=== PATIENT | female | born 1950 | race Caucasian/White ===

== ENCOUNTER 2018-08-12 13:18 | Outpatient (REF) | payer MEDICARE, SELFPAY ==
[2018-08-12 21:33] LABS: Bilirubin Negative (Negative); Blood Small (Negative); Clarity Clear; Glucose Negative (Negative); Ketones Negative (Negative); Leukocyte Esterase Negative (Negative); Nitrite Negative (Negative); Urobilinogen 0.2 EU/dL (Up TO 0.2); pH 6.5 (5-8)
[2018-08-12 21:43] LABS: Bacteria Few HPF (Negative); C & S Indicated? C&S Done As Ordered; Casts Negative LPF (Negative); Crystals Negative HPF (Negative); Epithelial Cells Negative HPF (Negative); Mucus Trace (Negative); Other Cells Negative (Negative); RBC 0-2 (0-2); WBC Negative HPF (0-5)
== END 2018-08-12 13:38 ==
LOC: NCHCN 13:18
PROVIDERS: Visit Provider Nurse Practitioner Family
DX: R31.9 Hematuria, unspecified (principal)
CPT/HCPCS: 81003; 81015; 87086

== ENCOUNTER 2018-08-26 11:43 | Outpatient (REF) | payer MEDICARE, SELFPAY ==
[2018-08-26 13:44] LABS: T4 10.1 ug/dL (4.5-12.5); TSH 3.77 uIU/mL (0.358-3.74)
== END 2018-08-26 12:03 ==
LOC: NCHCN 11:43
PROVIDERS: Visit Provider Nurse Practitioner Family
DX: E03.9 Hypothyroidism, unspecified (principal); R31.9 Hematuria, unspecified
CPT/HCPCS: 84436; 84443; 87086

== ENCOUNTER 2018-08-29 17:28 | Outpatient (REF) | payer MEDICARE, SELFPAY | END 2018-08-29 17:48 | LOC: NCHCN 17:28 | PROVIDERS: Visit Provider Nurse Practitioner Family | DX: R31.9 Hematuria, unspecified (principal) | CPT/HCPCS: 87086 ==

== ENCOUNTER 2020-12-01 13:35 | Outpatient (REF) | payer MEDICARE, SELFPAY ==
[2020-12-01 21:10] LABS: TSH (W/Ref FT4) 2.03 uIU/mL (0.36-3.74)
== END 2020-12-01 13:36 | disposition home or self-care (01) ==
LOC: NCHCN 13:35
PROVIDERS: Visit Provider Nurse Practitioner Family
DX: E03.9 Hypothyroidism, unspecified (principal)
CPT/HCPCS: 84443

== ENCOUNTER 2020-12-21 15:10 | Outpatient (REF) | payer MEDICARE, SELFPAY ==
[2020-12-21 21:39] LABS: ALT 26 U/L (14-59); AST 16 U/L (15-37); Anion Gap 8.7 mmol/L (3-11); BUN 15 mg/dL (7-18); CO2 27.3 mmol/L (21.0-32.0); CREATININE 0.9 mg/dL (0.55-1.02); Calcium 9.4 mg/dL (8.5-10.1); Calculated LDL 192 mg/dL (<100); Chloride 105 mmol/L (98-107); Cholesterol 274 mg/dL (<200); Glucose 93 mg/dL (74-106); HDL Cholesterol 64 mg/dL (40-60); Potassium 4.2 mmol/L (3.5-5.1); Sodium 141 mmol/L (136-145); Triglyceride 91 mg/dL (<150)
== END 2020-12-21 15:11 | disposition home or self-care (01) ==
LOC: NCHCN 15:10
PROVIDERS: Visit Provider Nurse Practitioner Family
DX: E78.5 Hyperlipidemia, unspecified (principal); R31.9 Hematuria, unspecified; E03.9 Hypothyroidism, unspecified; E05.00 Thyrotoxicosis with diffuse goiter without thyrotoxic crisis or storm
CPT/HCPCS: 80048; 80061; 84450; 84460

== ENCOUNTER → 2021-11-24 12:51 | Outpatient (CLI) | payer MEDICARE, OTHER, SELFPAY ==
--- NOTE | 2021-11-24 | DI.RAD_ITS ---
Exam(s) XR WRIST RT COMPLETE EXAM: XR WRIST RT COMPLETE CLINICAL HISTORY: RIGHT WRIST PAIN - M25.531. TECHNIQUE: 2D digital imaging was performed. COMPARISON: No exams were available for comparison FINDINGS: 3 views There is no evidence of fracture or carpal dislocation nor significant ulnar variance. No scaphoid f racture seen. Scapholunate distance is normal. There is incidentally noted some degenerative narrow ing of the articulation between the distal aspect scaphoid and the trapezium-trapezoid bones. IMPRESSION: No fracture evident DATA REPOSITORY: RADIATION DOSE DELIVERED:
== END ==
PROVIDERS: PCP Nurse Practitioner Family; Visit Provider Nurse Practitioner Family
DX: M25.531 Pain in right wrist (principal)
CPT/HCPCS: 73110

== ENCOUNTER 2021-11-24 21:03 | Outpatient (REF) | payer MEDICARE, SELFPAY ==
[2021-11-24 16:13] LABS: HCT 41.4 % (36.0-46.0); HGB 13.6 g/dL (11.2-15.7); MCH 28.9 pg (27.0-33.0); MCHC 32.9 % (32.0-36.0); MCV 88 fL (80-95); MPV 8.8 fL (8.0-11.0); Platelet Count 266 10^3/uL (130-400); RDW 13.1 % (11.7-14.6); RDW-SD 42.4 fL; WBC 6.41 10^3/uL (4.4-10.8)
[2021-11-24 16:36] LABS: Anion Gap 9.3 mmol/L (3-11); BUN 14 mg/dL (7-18); CO2 25.7 mmol/L (21.0-32.0); CREATININE 0.7 mg/dL (0.55-1.02); Calcium 9.1 mg/dL (8.5-10.1); Calculated LDL 193 mg/dL (<100); Chloride 106 mmol/L (98-107); Cholesterol 288 mg/dL (<200); Glucose 115 mg/dL (74-106); HDL Cholesterol 69 mg/dL (40-60); Potassium 4.1 mmol/L (3.5-5.1); Sodium 141 mmol/L (136-145); TSH (W/Ref FT4) 1.19 uIU/mL (0.36-3.74); Triglyceride 133 mg/dL (<150)
== END 2021-11-24 21:04 | disposition home or self-care (01) ==
LOC: NCHCN 21:03
PROVIDERS: Visit Provider Nurse Practitioner Family
DX: E03.9 Hypothyroidism, unspecified (principal); E78.5 Hyperlipidemia, unspecified
CPT/HCPCS: 80048; 80061; 85027; 83874; 84443

== ENCOUNTER 2021-12-11 07:20 | Day surgery (SDC) | payer MEDICARE, OTHER, SELFPAY ==
[2021-12-11 07:47] VITALS: BP 130/59; PULSE 66; RESP 17; TEMP 36.5; O2SAT 98
[2021-12-11] MEDS: Tropicam./Phenyleph. (1/2.5%) 5 ML BTL OD ×3 (07:51→08:03)
--- NOTE | 2021-12-11 08:11 | W.ANESPRE ---
General Info Date of Service Date Performed: 12/11/21 Height: 5 ft 8 in Weight: 78.7 kg Body Mass Index (BMI): 26.4 Surgical Procedure: Operation Date: 12/11/21 09:10 Proposed Procedure Side Surgeon p Cataract Extraction with IOL Implant Right Cristhian Lewis MD Meds Allergies and Home Medications Allergies Allergy/AdvReac Type Severity Reaction Status Date / Time ciprofloxacin Allergy Intermediate Headache Verified 12/11/21 07:46 Home Medication Medication Instructions Recorded levothyroxine 100 mcg tablet 100 mcg PO DAILY #1 tab-cap 12/25/13 (Synthroid) Current Visit Medications: Current Medications Generic Name Dose Route Start Last Admin Trade Name Freq PRN Reason Stop Dose Admin Acetaminophen 1,000 mg 12/11/21 06:00 Acetaminophen 500 Mg Tab PO Q4H PRN PRN Miscellaneous Medication 0 ml 12/11/21 06:00 Prednisolone 1%, Moxifloxacin 0.5%, Nepafenac 0.1% 5ml Btl OD DIRECTED ABHIJIT Miscellaneous Medication 0 ml 12/11/21 06:00 12/11/21 08:03 Tropicam./Phenyleph. (1/2.5%) 5 Ml Btl OD 1 drp DIRECTED ABHIJIT Administration Tetracaine HCl 0 ml 12/11/21 06:00 Tetracaine 0.5% 4 Ml Btl OD DIRECTED ABHIJIT PFSH Active Problems Active Problems: Problem Status Onset Code Nuclear sclerotic cataract of right eye H25.11 Hypothyroidism E03.9 Graves disease E05.00 Hyperlipidemia E78.5 Medical History Medical History Herniated disc s/p surgery L5-S1 Hx of retinal hemorrhage (L) [place] [facility] [place] Low back pain potentially associated with radiculopathy Thyroid cyst Surgical History Surgical History Hx of appendectomy Hx of hysterectomy Tobacco Smoking/Tobacco Use Status: Former Tobacco Use Alcohol Alcohol Intake: current Alcohol intake frequency: a few times a week Alcohol type: wine Substance Use Substance use: Never Substance use type: does not use Vital Signs and Lab Results Vital Signs Most Recent Vital Signs in EMR: Most Recent Vital Signs Temp Pulse Resp BP Pulse Ox 36.5 C 66 17 130/59 L 98 05/23/22 07:47 12/11/21 07:47 12/11/21 07:47 12/11/21 07:47 12/11/21 07:47 Lab Results Blood Type / Crossmatch: No Data to Display Complete Blood Count: White Blood Count 6.41 10^3/uL (4.4-10.8) 11/24/21 11:00 Red Blood Count 4.70 10^6/uL (3.93-5.22) 11/24/21 11:00 Hemoglobin 13.6 g/dL (11.2-15.7) 11/24/21 11:00 Hematocrit 41.4 % (36.0-46.0) 11/24/21 11:00 Platelet Count 266 10^3/uL (130-400) 11/24/21 11:00 Complete Metabolic Panel: Sodium Level 141 mmol/L (136-145) 11/24/21 11:00 Potassium Level 4.1 mmol/L (3.5-5.1) 11/24/21 11:00 Chloride Level 106 mmol/L (98-107) 11/24/21 11:00 Carbon Dioxide Level 25.7 mmol/L (21.0-32.0) 11/24/21 11:00 Blood Urea Nitrogen 14 mg/dL (7-18) 11/24/21 11:00 Creatinine 0.7 mg/dL (0.55-1.02) 11/24/21 11:00 Estimated GFR/1.73 m2 >= 60.00 (mL/min/1.73m2) 11/24/21 11:00 Calcium Level 9.1 mg/dL (8.5-10.1) 11/24/21 11:00 Glucose Level 115 mg/dL (74-106) H 11/24/21 11:00 Liver Function Panel: No Data to Display Coagulation Panel: No Data to Display Cardiac Panel: No Data to Display Arterial Blood Gas: No Data to Display Venous Blood Gas: No Data to Display Pancreas Panel: No Data to Display Thyroid Panel: Thyroid Stimulating Hormone (TSH) 1.19 uIU/mL (0.36-3.74) 11/24/21 11:00 Infectious Disease: No Data to Display Blood Cultures: No Data to Display Toxicology Panel: No Data to Display Anesthesia Assessment and Plan Anesthesia History Personal History: No History of Anesthesia Complications Family History: No Family History of Anesthesia Complications Exercise Tolerance Exercise Tolerance: Metabolic Equivalents>4 Pertinent Negatives Pertinent Negatives: No Symptoms of GERD, No Major Cardiovascular Symptoms or Complaints and No Major Pulmonary Symptoms or Complaints Cardiac & Pulmonary Exam Cardiac Exam: Normal S1/S2 Heart Sounds Pulmonary Exam: Clear Bilateral Breath Sounds Implantable Cardiac Device Does patient have a Pacemaker or an ICD?: No Airway Exam Known Difficult Airway: No Mallampati Class: 2 Mouth Opening: Normal (> 3cm) Thyromental Distance: Greater than 3 cm Neck Range of Motion: Full ROM Neck Circumference: Normal Teeth Condition: Normal Dentition ASA Classification ASA Score: ASA 2 Emergency Case?: No NPO Status NPO Status: NPO Clears >2 hours, Solids >8 hours Anesthesia Plan Resuscitation Status: Full Code Anesthesia Technique: MAC Anesthesia Airway Planned: Natural Airway Monitors Used: Standard Monitors
[2021-12-11 08:19] VITALS: BMI 26.4
[2021-12-11] MEDS: Tetracaine 0.5% 4 ML BTL OD (09:42)
[2021-12-11] MEDS: Balanced Salt Soln.-PLUS 500 ML BAG (09:43)
[2021-12-11] MEDS: Duovisc Viscoelastic System EACH 1 EACH (09:44)
[2021-12-11] MEDS: Lidocaine 2% Jelly 6 ML SYR (09:47)
[2021-12-11] MEDS: Povidone-Iodine Ophth 30 ML BTL (09:51)
--- NOTE | 2021-12-11 09:56 | W.PM.DSUDISC ---
Discharge Plan Disposition Patient Disposition: HOME Condition: Good Discharge Details Attending Provider: Cristhian Lewis Primary Care Provider: Soni Alva Home Meds and New Rx's Prescriptions: No Action levothyroxine [Synthroid] 100 MCG tablet 100 mcg PO DAILY Qty: 1 Discharge Instructions Stand Alone Forms: Post-op Topical Cataract, Loretta Bragg (DSU) Discharge Orders Discharge Orders: Discharge Order (Routine); Ordered 12/11/21 Ordered By: Cristhian Lewis DS: Diagnosis Discharge Diagnosis (1) Nuclear sclerotic cataract of right eye: Status: Resolved
--- NOTE | 2021-12-11 09:57 | ROE_ITS ---
Date of service: 12/11/21 Time of Service: 08:57 Operative Note Operative Note DATE OF PROCEDURE: 12/11/21 PRE-OP DIAGNOSIS: Nuclear cataract, right eye POST-OP DIAGNOSIS: same PROCEDURE: Cataract extraction using phacoemulsification with intraocular lens implant, right eye SURGEON: Cristhian Lewis ANESTHESIA TYPE: Local By Surgeon and MAC Refer to Anesthesia Record ESTIMATED BLOOD LOSS: 0 PATHOLOGY: none sent COMPLICATIONS: None Patient was transported to: same day Patient's condition: stable Implants: William & William/SERGIO Tecnis [id number] Indications: Progressive visual loss due to cataract, right eye Procedure Description: CATARACT SURGERY OPERATIVE REPORT PREOPERATIVE DIAGNOSIS: 1. Nuclear cataract, right eye POSTOPERATIVE DIAGNOSIS: Same OPERATION: 1. Cataract extraction using phacoemulsification with posterior chamber intraocular lens implant, right eye. IOL: IOL Supervisor Screen Printing/Model: William & William / SERGIO Tecnis [id number] IOL Power: + 19.5 diopters IOL Serial Number: [id number] Optic Diameter: 6.0mm Haptic/Overall Diameter: 13.0mm PHACO INFO: [employer] Vision System with OZil and Active Fluidics Cumulative Dispersed Energy (CDE): 27.15 seconds SURGEON: Cristhian Lewis MD, JOHNSON ANESTHESIA: Monitored Anesthesia Care (MAC), with local sub-tenon's anesthetic infiltration COMPLICATIONS: None SPECIMENS: None INDICATIONS FOR PROCEDURE: The patient is a 71-year-old lady with history of diminished visual acuity in her right eye secondary to the development of nuclear cataract. The option of cataract surgery was offered to the patient and she felt she was symptomatic enough that she wished to proceed. PROCEDURE: The correct surgical eye was identified and marked as the right eye and the pupil was dilated in the preoperative area using mydriatics and cycloplegics. The dilated pupil size was 7.0 mm. Oral sedation was administered in the form of an Imprimis MKO Melt (midazolam 3mg/ketamine 25mg/ondansetron 2mg). The patient was brought to the operating room where cardiopulmonary mo nitoring was instituted and surgical time-out was performed, confirming the correct operative eye and IOL power. Topical anesthesia was administered and ophthalmic povidone-iodine 5% was instilled into the conjunctival fornices. Lidocaine gel was applied to the cornea and the bonnie-ocular area was prepped with Betadine 10% solution and draped in the usual sterile fashion for intraocular surgery, including an aperture drape. A Tegaderm transparent film dressing was cut in half and used to cover the lashes and lid margins. Care was taken to sequester the lashes and lid margins under the Tegaderm dressing. A lid speculum was placed between the lids of the operative eye and the Sunny Lux[employer] Revalia operating microscope was maneuvered into position. Shannon scissors were then used to make a conjunctival buttonhole approximately 6mm posterior to the limbus in the inferonasal quadrant. Blunt dissection was carried out to expose bare sclera, and a blunt-tipped sub-tenon?s anesthesia can nula was introduced and passed posteriorly along the globe where non-preserved plain lidocaine was injected into posterior sub-Tenon?s space. A sideport knife was used to make a paracentesis port inferotemporally. Intraocular phenylephrine/lidocaine was injected into the anterior chamber. The anterior chamber was filled with viscoelastic. A 2.4mm keratome knife was used to construct a 2-plane near-clear corneal tunnel extending 2.0mm into clear cornea superiortemporally. A flap was raised on the anterior capsule and capsulorhexis forceps were used to complete a continuous curvilinear capsulorhexis of 5.5 mm. Balanced salt solution was then used to perform cortical cleaving hydrodissection and nuclear hydrodelineation until the lens could be freely rotated within the capsular bag. The lens nucleus was then disassembled and removed within the capsular bag and iris plane using phacoemulsification. Residual cortical material was removed using the I/A handpiece. The posterior capsule was carefully polished to remove as much residual lens epithelial cells as safely possible. The capsular bag was then inflated and the anterior chamber deepened with viscoelastic. The lens implant described above was inserted into the capsular bag using the SERGIO [place] Injector. A Kuglen hook was used to dial the IOL into position. Residual viscoelastic was then removed first from posterior to the IOL, then from the anterior chamber using the I/A handpiece. The lens implant was noted to center nicely within the capsular bag. The incisions were stromally hydrated, and the anterior chamber was reformed using BSS. Then 0.5cc of moxifloxacin 1.0mg/ml were injected into the capsular bag and anterior chamber. The incisions were checked with a Weck spear and found to be secure. Several drops of ophthalmic povidone-iodine 5% were then applied to the eye followed by two drops of Imprimis combination prednisolone/moxifloxacin/nepafenac solution. The drapes were removed and a clear plastic protective eye shield was placed over the eye. The patient was then returned to Same Day Surgery in stable condition.
[2021-12-11 10:00] VITALS: BP 144/89; PULSE 70; RESP 18; TEMP 36.1; O2SAT 97
--- NOTE | 2021-12-11 10:19 | W.ANESPOSTOP ---
Postoperative Evaluation Date, Time and Location Date Performed: 12/11/21 Time Performed: 10:05 Patient Location: Day Surgery Unit Vital Signs Most Recent Imported Vital Signs: Most Recent Vital Signs Temp Pulse Resp BP Pulse Ox 36.1 C L 70 18 144/89 H 97 12/11/21 10:00 12/11/21 10:00 12/11/21 10:00 12/11/21 10:00 12/11/21 10:00 Pain Score Most Recent Pain Score: Most Recent Pain Score Pain Level 0 12/11/21 10:00 Assessment Mental Status: Awake (Alert & Oriented to Patient Baseline) Airway and Respiratory Function: Patent airway with normal (patient baseline) respiratory exam Cardiovascular Function: Hemodynamically Stable Hydration Status: Adequately Hydrated Nausea & Vomiting: No Nausea or Vomiting Pain: Pt. Denies Any Pain Peripheral Nerve Block: Patient did not receive a nerve block
[2021-12-11 10:20] VITALS: BP 132/75; PULSE 78; RESP 18; TEMP 36.2; O2SAT 96
== END 2021-12-11 10:25 | disposition home or self-care (01) ==
PROVIDERS: PCP Nurse Practitioner Family; Visit Provider Ophthalmology
PROC: (CPT 66984; principal; 2021-12-11 09:00)
DX: H25.11 Age-related nuclear cataract, right eye (principal); E78.5 Hyperlipidemia, unspecified
CPT/HCPCS: 66984; V2632

== ENCOUNTER 2021-12-25 06:20 | Day surgery (SDC) | payer MEDICARE, OTHER, SELFPAY ==
[2021-12-25] MEDS: Tropicam./Phenyleph. (1/2.5%) 5 ML BTL OS ×3 (06:41→06:59)
[2021-12-25 06:43] VITALS: BP 134/65; PULSE 71; RESP 16; TEMP 36.5; O2SAT 96
--- NOTE | 2021-12-25 06:56 | ANES.PREOP_ITS ---
General Info Date of Service Date Performed: 12/25/21 Height: 5 ft 8 in Weight: 79.2 kg Body Mass Index (BMI): 26.5 Surgical Procedure: Operation Date: 12/25/21 07:40 Proposed Procedure Side Surgeon p Cataract Extraction with IOL Implant Left Cristhian Lewis MD Meds Allergies and Home Medications Allergies Allergy/AdvReac Type Severity Reaction Status Date / Time ciprofloxacin Allergy Intermediate Headache Verified 12/25/21 06:40 Home Medication Medication Instructions Recorded levothyroxine 100 mcg tablet 100 mcg PO DAILY #1 tab-cap 12/25/13 (Synthroid) Current Visit Medications: Current Medications Generic Name Dose Route Start Last Admin Trade Name Freq PRN Reason Stop Dose Admin Acetaminophen 1,000 mg 12/25/21 06:00 Acetaminophen 500 Mg Tab PO Q4H PRN PRN Miscellaneous Medication 0 ml 12/25/21 06:00 Prednisolone 1%, Moxifloxacin 0.5%, Nepafenac 0.1% 5ml Btl OS DIRECTED ABHIJIT Miscellaneous Medication 0 ml 12/25/21 06:00 12/25/21 06:53 Tropicam./Phenyleph. (1/2.5%) 5 Ml Btl OS 1 drp DIRECTED ABHIJIT Administration Tetracaine HCl 0 ml 12/25/21 06:00 Tetracaine 0.5% 4 Ml Btl OS DIRECTED ABHIJIT PFSH Active Problems Active Problems: Problem Status Onset Code Hypothyroidism E03.9 Graves disease E05.00 Hyperlipidemia E78.5 Nuclear sclerotic cataract of right eye H25.11 Medical History Medical History (Updated 12/25/21 @ 07:09 by Cristhian Lewis MD) Herniated disc s/p surgery L5-S1 Hx of retinal hemorrhage (L) currently being worked on by [facility] [place] per ptEdda Britton aware Low back pain potentially associated with radiculopathy Thyroid cyst Surgical History Surgical History History of cataract surgery Hx of appendectomy Hx of hysterectomy Tobacco Smoking/Tobacco Use Status: Former Tobacco Use Alcohol Alcohol Intake: current Alcohol intake frequency: a few times a week Alcohol type: wine Substance Use Substance use: Never Substance use type: does not use Vital Signs and Lab Results Vital Signs Most Recent Vital Signs in EMR: Most Recent Vital Signs Temp Pulse Resp BP Pulse Ox 36.5 C 71 16 134/65 96 12/25/21 06:43 12/25/21 06:43 12/25/21 06:43 12/25/21 06:43 12/25/21 06:43 Lab Results Blood Type / Crossmatch: No Data to Display Complete Blood Count: No Data to Display Complete Metabolic Panel: No Data to Display Liver Function Panel: No Data to Display Coagulation Panel: No Data to Display Cardiac Panel: No Data to Display Arterial Blood Gas: No Data to Display Venous Blood Gas: No Data to Display Pancreas Panel: No Data to Display Thyroid Panel: No Data to Display Infectious Disease: No Data to Display Blood Cultures: No Data to Display Toxicology Panel: No Data to Display Anesthesia Assessment and Plan Anesthesia History Personal History: No History of Anesthesia Complications Family History: No Family History of Anesthesia Complications Exercise Tolerance Exercise Tolerance: Metabolic Equivalents>4 Pertinent Negatives Pertinent Negatives: No Symptoms of GERD Cardiac & Pulmonary Exam Cardiac Exam: Normal S1/S2 Heart Sounds Pulmonary Exam: Clear Bilateral Breath Sounds Implantable Cardiac Device Does patient have a Pacemaker or an ICD?: No Airway Exam Known Difficult Airway: No Mallampati Class: 2 Mouth Opening: Normal (> 3cm) Thyromental Distance: Greater than 3 cm Neck Range of Motion: Full ROM Neck Circumference: Normal Teeth Condition: Normal Dentition ASA Classification ASA Score: ASA 2 Emergency Case?: No NPO Status NPO Status: NPO Clears >2 hours, Solids >8 hours Anesthesia Plan Resuscitation Status: Full Code Anesthesia Technique: MAC Anesthesia Airway Planned: Natural Airway Monitors Used: Standard Monitors
[2021-12-25] MEDS: Tetracaine 0.5% 4 ML BTL OS (07:28)
[2021-12-25] MEDS: Povidone-Iodine Ophth 30 ML BTL (07:29)
[2021-12-25] MEDS: Lidocaine 2% Jelly 6 ML SYR (07:30)
[2021-12-25 07:31] VITALS: BMI 26.5
[2021-12-25] MEDS: Balanced Salt Soln.-PLUS 500 ML BAG (07:38)
[2021-12-25] MEDS: Duovisc Viscoelastic System EACH 1 EACH (07:39)
--- NOTE | 2021-12-25 08:01 | W.PM.DSUDISC ---
Discharge Plan Disposition Patient Disposition: HOME Condition: Good Discharge Details Attending Provider: Cristhian Lewis Primary Care Provider: Soni Alva Home Meds and New Rx's Prescriptions: No Action levothyroxine [Synthroid] 100 MCG tablet 100 mcg PO DAILY Qty: 1 Discharge Instructions Stand Alone Forms: Post-op Topical Cataract, Loretta Bragg (DSU) Discharge Orders Discharge Orders: Discharge Order (Routine); Ordered 12/25/21 Ordered By: Cristhian Lewis DS: Diagnosis Discharge Diagnosis (1) Nuclear sclerotic cataract of left eye: Status: Resolved
--- NOTE | 2021-12-25 08:02 | ROE_ITS ---
Date of service: 12/25/21 Time of Service: 07:02 Operative Note Operative Note DATE OF PROCEDURE: 12/25/21 PRE-OP DIAGNOSIS: Nuclear cataract, right eye POST-OP DIAGNOSIS: same PROCEDURE: Cataract extraction using phacoemulsification with intraocular lens implant, right eye SURGEON: Cristhian Lewis ANESTHESIA TYPE: Local By Surgeon and MAC Refer to Anesthesia Record ESTIMATED BLOOD LOSS: 0 PATHOLOGY: none sent COMPLICATIONS: None Patient was transported to: same day Patient's condition: stable Implants: William & William/SERGIO Tecnis [id number] Indications: Progressive visual loss due to cataract, right eye Procedure Description: CATARACT SURGERY OPERATIVE REPORT PREOPERATIVE DIAGNOSIS: 1. Nuclear cataract, right eye POSTOPERATIVE DIAGNOSIS: Same OPERATION: 1. Cataract extraction using phacoemulsification with posterior chamber intraocular lens implant, right eye. IOL: IOL Foot Piece Assembler/Model: William & William / SERGIO Tecnis [id number] IOL Power: + 18.5 diopters IOL Serial Number: [id number] Optic Diameter: 6.0mm Haptic/Overall Diameter: 13.0mm PHACO INFO: [employer] Vision System with OZil and Active Fluidics Cumulative Dispersed Energy (CDE): 18.58 seconds SURGEON: Cristhian Lewis MD, JOHNSON ANESTHESIA: Monitored Anesthesia Care (MAC), with local sub-tenon's anesthetic infiltration COMPLICATIONS: None SPECIMENS: None INDICATIONS FOR PROCEDURE: The patient is a 71-year-old lady with history of diminished visual acuity in both eyes secondary to the development of bilateral nuclear cataract. She has already undergone cataract surgery in her right eye and is doing well postoperatively. She now presents for cataract surgery in her left eye. PROCEDURE: The correct surgical eye was identified and marked as the right eye and the pupil was dilated in the preoperative area using mydriatics and cyc loplegics. The dilated pupil size was 7.0 mm. She elected to proceed without oral sedation. The patient was brought to the operating room where cardiopulmonary monitoring was instituted and surgical time-out was performed, confirming the correct operative eye and IOL power. Topical anesthesia was administered and ophthalmic povidone-iodine 5% was instilled into the conjunctival fornices. Lidocaine gel was applied to the cornea and the bonnie-ocular area was prepped with Betadine 10% solution and draped in the usual sterile fashion for intraocular surgery, including an aperture drape. A Tegaderm transparent film dressing was cut in half and used to cover the lashes and lid margins. Care was taken to sequester the lashes and lid margins under the Tegaderm dressing. A lid speculum was placed between the lids of the operative eye and the Sunny Lux[employer] Revalia operating microscope was maneuvered into position. Shannon scissors were then used to make a conjunctival buttonhole approximately 6mm posterior to the limbus in the inferonasal quadrant. Blunt dissection was carried out to expose bare sclera, and a blunt-tipped sub-tenon?s anesthesia cannula was introduced and passed posteriorly along the globe where non- preserved plain lidocaine was injected into posterior sub-Tenon?s space. A sideport knife was used to make a paracentesis port inferotemporally. Intraocular phenylephrine/lidocaine was injected into the anterior chamber. The anterior chamber was filled with viscoelastic. A 2.4mm keratome knife was used to construct a 2-plane near-clear corneal tunnel extending 2.0mm into clear cornea superiortemporally. A flap was raised on the anterior capsule and capsulorhexis forceps were used to complete a continuous curvilinear capsulorhexis of 5.5 mm. Balanced salt solution was then used to perform cortical cleaving hydrodissection and nuclear hydrodelineation until the lens could be freely rotated within the capsular bag. The lens nucleus was then disassembled and removed within the capsular bag and iris plane using phacoemulsification. Residual cortical material was removed using the I/A handpiece. The posterior capsule was carefully polished to remove as much residual lens epithelial cells as safely possible. The capsular bag was then inflated and the anterior chamber deepened with viscoelastic. The lens implant described above was inserted into the capsular bag using the SERGIO [place] Injector. A Kuglen hook was used to dial the IOL into position. Residual viscoelastic was then removed first from posterior to the IOL, then from the anterior chamber using the I/A handpiece. The lens implant was noted to center nicely within the capsular bag. The incisions were stromally hydrated, and the anterior chamber was reformed using BSS. Then 0.5cc of moxifloxacin 1.0mg/ml were injected into the capsular bag and anterior chamber. The incisions were checked with a Weck spear and found to be secure. Several drops of ophthalmic povidone-iodine 5% were then applied to the eye followed by two drops of Imprimis combination prednisolone/moxifloxacin/nepafenac solution. The drapes were removed and a clear plastic protective eye shield was placed over the eye. The patient was then returned to Same Day Surgery in stable condition.
[2021-12-25] MEDS: Acetaminophen 500 MG TAB 1000 MG PO (08:04)
[2021-12-25 08:13] VITALS: BP 140/85; PULSE 65; RESP 16; TEMP 36.5; O2SAT 96
--- NOTE | 2021-12-25 08:55 | W.ANESPOSTOP ---
Postoperative Evaluation Date, Time and Location Date Performed: 12/25/21 Time Performed: 07:58 Patient Location: Day Surgery Unit Vital Signs Most Recent Imported Vital Signs: Most Recent Vital Signs Temp Pulse Resp BP Pulse Ox 36.5 C 65 16 140/85 96 12/25/21 08:13 12/25/21 08:13 12/25/21 08:13 12/25/21 08:13 12/25/21 08:13 Pain Score Most Recent Pain Score: Most Recent Pain Score Pain Level 3 12/25/21 08:13 Assessment Mental Status: Awake (Alert & Oriented to Patient Baseline) Airway and Respiratory Function: Patent airway with normal (patient baseline) respiratory exam Cardiovascular Function: Hemodynamically Stable Hydration Status: Adequately Hydrated Nausea & Vomiting: No Nausea or Vomiting Pain: Pt. Denies Any Pain Peripheral Nerve Block: Other (Local by Dr. Lewis)
== END 2021-12-25 08:25 | disposition home or self-care (01) ==
PROVIDERS: PCP Nurse Practitioner Family; Visit Provider Ophthalmology
PROC: (CPT 66984; principal; 2021-12-25 07:30)
DX: H25.12 Age-related nuclear cataract, left eye (principal); E03.9 Hypothyroidism, unspecified; E78.5 Hyperlipidemia, unspecified
CPT/HCPCS: 66984; V2632

== ENCOUNTER → 2022-01-25 09:24 | Outpatient (BNVA) | payer MEDICARE, OTHER, SELFPAY | PROVIDERS: PCP Nurse Practitioner Family; Visit Provider Student in an Organized Health Care Education/Training Program | DX: G56.21 Lesion of ulnar nerve, right upper limb (principal) | CPT/HCPCS: 99203 ==

== ENCOUNTER 2022-03-15 16:16 | Outpatient (REF) | payer MEDICARE, OTHER, SELFPAY | END 2022-03-15 16:17 | disposition home or self-care (01) | LOC: NCHCN 16:16 | PROVIDERS: PCP Nurse Practitioner Family; Visit Provider Nurse Practitioner Family | DX: R31.9 Hematuria, unspecified (principal) | CPT/HCPCS: 87086 ==

== ENCOUNTER 2022-04-05 17:42 | Outpatient (REF) | payer MEDICARE, OTHER, SELFPAY ==
[2022-04-05 16:48] LABS: Bilirubin Negative (Negative); Blood Trace-lysed (Negative); Clarity Clear (Clear); Glucose Negative (Negative); Ketones Negative (Negative); Leukocyte Esterase Negative (Negative); Nitrite Negative (Negative); Specific Gravity 1.015 (1.005-1.025); Urobilinogen 0.2 EU/dL (Up TO 0.2); pH 7.5 (5-8)
[2022-04-05 16:58] LABS: Bacteria Negative HPF (Negative); C & S Indicated? C&S Done As Ordered; Crystals Negative HPF (Negative); Epithelial Cells Few HPF (Negative); Mucus Negative (Negative); RBC 0-2 HPF (0-2); WBC 0-2 HPF (0-5)
== END 2022-04-05 17:43 | disposition home or self-care (01) ==
LOC: NCHCN 17:42
PROVIDERS: PCP Nurse Practitioner Family; Visit Provider Nurse Practitioner Family
DX: R31.9 Hematuria, unspecified (principal)
CPT/HCPCS: 81003; 81015; 87086

== ENCOUNTER 2022-07-02 21:03 | Emergency (ER) | payer MEDICARE, OTHER, SELFPAY ==
[2022-07-02 21:08] VITALS: BP 153/68; PULSE 83; RESP 16; TEMP 36.8; O2SAT 96
--- NOTE | 2022-07-02 21:12 | DI.RAD_ITS ---
Exam(s) XR FINGER LT INDEX EXAM: XR FINGER LT INDEX EXAM DATE/TIME: CLINICAL HISTORY: trauma. TECHNIQUE: 2D digital imaging was performed of the left finger. Three views were obtained. PA/AP, oblique, and lateral views were obtained. COMPARISON: None. FINDINGS: BONES: No acute fracture is present. No bony destructive lesion is seen. JOINTS: No dislocation is present. There are degenerative changes at the MCP and interphalangeal fernandez nts of the index finger. SOFT TISSUE: There is soft tissue swelling. IMPRESSION: No evidence of acute fracture or dislocation. DATA REPOSITORY: RADIATION DOSE DELIVERED:
--- NOTE | 2022-07-02 21:51 | DI.VRAD_ITS ---
PROCEDURE INFORMATION: Exam: XR Left Finger(s) Exam date and time: 07/02/2022 9:31 PM Age: 72 years old Clinical indication: Injury or trauma; Other: Laceration; Left; Index finger TECHNIQUE: Imaging protocol: Radiologic exam of the Left fingers. Views: 3 views. COMPARISON: No relevant prior studies available. FINDINGS: Bones/joints: No fractures are identified. Alignment is anatomic. 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 Soft tissues: Mild soft tissue swelling. No radiopaque foreign body. IMPRESSION: No fracture, malalignment, or radiopaque foreign body in the left 2nd finger. Dictated and Authenticated by: Edith Kruse MD. Ordering:MAREK Quiñones MD
--- NOTE | 2022-07-02 22:20 | ED.GENADUL_ITS ---
Discharge Plan Disposition Patient Disposition: Home Condition: Stable Discharge Details Clinical Impression: Laceration of left index finger Primary Care Provider: Soni Alva ED Provider: Ishmael Reed Home Meds and New Rx's Prescriptions: No Action levothyroxine [Synthroid] 100 MCG tablet 100 mcg PO DAILY Qty: 1 gabapentin 300 mg capsule 300 mg PO PRN Discharge Instructions Instructions: Finger Laceration (ED) Additional Instructions: Watch for any signs of infection and return immediately to the emergency department if these occur. Otherwise keep dressing in place for the next 24-48 hours and then keep wound clean and dry. Return to the emergency department 10 days for suture removal. Discharge Data Discharge Date/Time-TO BE ENTERED AT DEPARTURE: 07/02/22 22:26 Medical Decision Making Patient presenting to the emergency department for chief complaint of left index finger laceration. Patient states that she was splitting kindling when she actually dentally struck her left index finger. Patient denies any other injury or trauma and states that she is up-to-date on her tetanus. Physical exam shows appropriate range of motion and two-point discrimination is intact along with cap refill distal to the injury. Patient has a 2.5 cm laceration that is dogeared in shape to the radial aspect of the index finger. Exam is otherwise unremarkable. Radiological imaging was performed due to mechanism of injury and shows no acute fracture or foreign body noted. Wound repair was performed with 4-0 Prolene and 5 sutures were placed. After discussion of diagnosis and plan of care patient has no further needs, questions, or concerns and states clear understanding to return to the emergency department for any worsening symptoms. This documentation was generated using [employer] dictation system, please disregard any oddities of phrase or misspellings. Sign Out No HPI General Mode of arrival: ambulatory . Date/Time Provider Initiated Documentation: 07/02/22 21:12 . Limitations to Documentation: no limitations . Information obtained by: patient, family and RN notes reviewed . History of Present Illness 72 year old F presents to the emergency department with the chief complaint of Left index finger laceration, described as moderate, Quality is described as sharp, and is localized to the left and upper extremity. Patient reports no radiation. Patient started experiencing this hour(s) (1) and it has been constant. No relieving factors improve symptom(s), No exacerbating factors reported . Patient notes no other symptoms.. Patient did receive the following treatments prior to arrival, none Related Data Home Medications Medication Instructions Recorded Confirmed levothyroxine 100 mcg tablet 100 mcg PO DAILY #1 tab-cap 12/25/13 07/02/22 (Synthroid) gabapentin 300 mg capsule 300 mg PO PRN 07/02/22 Allergies Allergy/AdvReac Type Severity Reaction Status Date / Time ciprofloxacin Allergy Intermediate Headache Verified 01/25/22 09:26 seasonal Allergy Uncoded 07/02/22 21:13 General Stated Complaint: Laceration TIFFANY: 4 Review of Systems Narrative: 6 systems reviewed and unremarkable except what is marked below. Musculoskeletal Musculoskeletal: Denies limited range of motion, Denies numbness and Denies tingling Integumentary/Breasts Skin/Breast: Reports as per HPI Neurologic Neurologic: Denies numbness and Denies tingling PFSH All Active Problems (Updated 07/02/22 @ 22:22 by Ishmael Reed NP) Laceration of left index finger (Acute) Cubital tunnel syndrome on right (Acute) Posterior subcapsular age-related cataract of left eye (Acute) Hypothyroidism (Chronic) Graves disease (Acute) s/p orbitotomy Hyperlipidemia (Acute) Medical History (Updated 07/02/22 @ 22:22 by Ishmael Reed NP) Herniated disc s/p surgery L5-S1 Hx of retinal hemorrhage (L) currently being worked on by [facility] [place] per ptEdda Britton aware Low back pain potentially associated with radiculopathy Thyroid cyst Surgical History History of cataract surgery Hx of appendectomy Hx of hysterectomy Social History Smoking/Tobacco Use Status: Former Tobacco Use Quit Date: 07/22/07 Smoking risk assessment performed?: Yes Alcohol Intake: current Alcohol Intake frequency: a few times a week Alcohol type: wine Drug use: Never Substance use type: does not use Do you feel safe at home: Yes Do you feel safe in your relationship?: Yes Additional Social history: lives alone- but will have somebody to help her post-op at home Exam Const General: cooperative, no acute distress and not ill appearing Orientation: alert, awake and oriented x3 HENMT Mouth: moist mucous membranes Resp Effort & Inspection: normal respiratory effort, able to speak in complete sente nces and no respiratory distress Cardio Rate: regular rate Rhythm: regular rhythm Neuro General: patient alert, patient awake, patient oriented x3, moves all extremities and no focal motor deficits Sensory Exam: no sensory deficits noted Extrem General: normal exam except as noted Left upper extremity: hand Details: normal capillary refill, neuromotor exam normal, neurosensory exam normal, tendon exam normal and laceration 2nd digit Course Vital Signs Vital signs: Vital Signs Temperature 36.8 C 07/02/22 21:08 Pulse 83 07/02/22 21:08 Respiratory Rate 16 07/02/22 21:08 Blood Pressure 153/68 H 07/02/22 21:08 Pulse Oximetry 96 07/02/22 21:08 Temperature 36.8 C 07/02/22 21:08 Temperature Source Oral 07/02/22 21:08 Pulse 83 07/02/22 21:08 Respiratory Rate 16 07/02/22 21:08 Respiratory Effort 07/02/22 21:08 Blood Pressure 153/68 H 07/02/22 21:08 Blood Pressure Position Sitting 07/02/22 21:08 Pulse Oximetry 96 07/02/22 21:08 Oxygen Delivery Method Room Air 07/02/22 21:08 Oxygen Flow Rate 0 07/02/22 21:08 Pain Level 2 07/02/22 21:08 Procedures Laceration Laceration 1: Site: upper extremity Side (If applicable): left Size (cm): 2.5 Description: flap and clean Depth: simple, single layer Local Anesthetic: Lidocaine 1% Amount of anesthesia used (mL): 3 Pre-repair: wound explored, irrigated extensively and deep structures intact Skin layer closed with: other (prolene) Size (cm): 4-0 Number of sutures: 5 Technique: simple, interrupted
== END 2022-07-02 22:26 | disposition home or self-care (01) ==
PROVIDERS: Emergency Provider Nurse Practitioner Family; PCP Nurse Practitioner Family
DX: S61.211A Laceration without foreign body of left index finger without damage to nail, initial encounter (principal); Z90.710 Acquired absence of both cervix and uterus; Z90.49 Acquired absence of other specified parts of digestive tract; W22.8XXA Striking against or struck by other objects, initial encounter
CPT/HCPCS: 12001; 99283; 73140; 99282

== ENCOUNTER 2022-09-10 01:35 | Outpatient (CLI) | payer MEDICARE, OTHER, SELFPAY ==
--- NOTE | 2022-09-10 | DI.RAD_ITS ---
Exam(s) XR LUMBAR SPINE COMPLETE EXAM: XR LUMBAR SPINE COMPLETE CLINICAL HISTORY: LOW BACK PAIN WITH RADICULOPATHY,M54.5. TECHNIQUE: 2D digital imaging was performed. Five views. COMPARISON: No exams were available for comparison FINDINGS: BONES: No fracture or destructive lesion. Vertebral body heights are maintained. Prominent facet hyp ertrophy identified at the lower lumbar levels.. No spondylolysis.. DISKS: Mild L4-5 and L5-S1 disc space narrowing. Remaining intervertebral disc spaces are maintained . ALIGNMENT: Mild spondylolisthesis at L4-5 and L5-S1 secondary to prominent facet degenerative changes . No scoliosis. SOFT TISSUE: Abdominal aorta calcified. IMPRESSION: Degenerative changes lower lumbar spine. DATA REPOSITORY: RADIATION DOSE DELIVERED:
== END 2022-09-10 01:55 ==
LOC: DI 01:35
PROVIDERS: PCP Nurse Practitioner Family; Visit Provider Family Medicine
DX: M47.816 Spondylosis without myelopathy or radiculopathy, lumbar region (principal)
CPT/HCPCS: 72110

== ENCOUNTER 2022-11-21 23:32 | Observation (INO) | payer MEDICARE, OTHER, SELFPAY ==
--- NOTE | 2022-11-21 23:30 | RT.EKG_ITS ---
APPROVED REPORT Exam: Resting ECG Reason for Exam: dizziness Patient Location: E HR:72 bpm ECG Measurements Heart Rate 72 AXIS DE 164 P 71 QRSd 148 QRS -72 QT 427 T 63 QTc 458 Conclusion Sinus rhythm...normal P axis, V-rate 60- 99 Atrial premature complexes...SV complexes w/ short R-R intvls RBBB and LAFB...QRSd >120mS, axis(-40,240)
[2022-11-21 23:43] VITALS: BP 151/97; PULSE 74; O2SAT 95
[2022-11-21 23:44] VITALS: O2SAT 96
[2022-11-21 23:45] VITALS: BP 151/85; PULSE 72; RESP 18; O2SAT 96
[2022-11-21 23:46] VITALS: BP 151/85; PULSE 69
[2022-11-21 23:50] VITALS: O2SAT 96
[2022-11-21 23:53] VITALS: BP 138/82; PULSE 70; RESP 18; O2SAT 95
[2022-11-21] MEDS: Normal Saline 1,000 ML 1000 ML IV (23:58)
[2022-11-22] VITALS (26 sets, daily range): BP systolic 82–165; BP diastolic 64–101; PULSE 60–93; RESP 14–24; TEMP 36.4–37.5; O2SAT 95–99
--- NOTE | 2022-11-22 | DI.CT_ITS ---
Exam(s) CT HEAD WO EXAM: CT HEAD WO CLINICAL HISTORY: dizziness. TECHNIQUE: Imaging Protocol: Axial computed tomography images with coronal and sagittal reformatted images were created and reviewed COMPARISON: No exams were available for comparison FINDINGS: Ventricles and Extra axial spaces: Normal in size and morphology for the patient's age. Hemorrhage: None. Cerebral parenchyma: No evidence of an acute territorial infarct. There are subtle areas of decrease d attenuation in the white matter likely reflecting small vessel ischemic disease. 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 Midline shift: None. Brainstem/Cerebellum: Normal. Calvarium: Normal. Visualized Paranasal sinuses/Mastoids: Clear. Soft Tissues: Unremarkable. IMPRESSION: No acute intracranial process. RADIATION DOSE DELIVERED: 704.72mGy.cm Total DLP DATA REPOSITORY: All CT scans at this facility are submitted to the National Radiology Data Registry (NRDR) Dose Index Registry (DIR) with the [employer] (ACR). RADIATION OPTIMIZATION: All CT scans at this facility use at least one of these dose optimization te chniques: automated exposure control; mA and/or kV adjustment per patient size (includes targeted exa ms where dose is matched to clinical indication); or iterative reconstruction.
--- NOTE | 2022-11-22 | DI.RAD_ITS ---
Exam(s) XR PORTABLE CHEST AP EXAM: XR PORTABLE CHEST AP CLINICAL HISTORY: presyncope TECHNIQUE: 2D digital imaging was performed of the chest. One image was obtained. An AP view was ob tained. COMPARISON: No exams were available for comparison FINDINGS: MEDIASTINUM: Normal. HEART: Normal. PULMONARY VASCULATURE: Normal. LUNGS: Clear. PLEURAL SPACE: No pleural effusion or pneumothorax. BONE:Within normal limits for the patient's age. OTHER FINDINGS:Normal. IMPRESSION: No acute pulmonary findings. DATA REPOSITORY: RADIATION DOSE DELIVERED:
[2022-11-22 00:14] LABS: Abs Immature Grans 0.04 10^3/uL (0.0-0.06); Absolute Basophil Count 0.03 10^3/uL (0.0-0.2); Absolute Eosinophil Count 0.13 10^3/uL (0.0-0.7); Absolute Lymphocyte Count 2.42 10^3/uL (1.2-3.4); Absolute Monocyte Count 0.75 10^3/uL (0.1-0.8); Absolute Neutrophil Count 5.74 10^3/uL (1.2-6.7); Basophils % 0.3; Eosinophils % 1.4; HCT 42.5 % (36.0-46.0); Immature Grans % 0.4; Lymphocytes % 26.6; MCH 29.1 pg (27.0-33.0); MCHC 32.9 % (32.0-36.0); MCV 88 fL (80-95); MPV 8.5 fL (8.0-11.0); Monocytes % 8.2; Neutrophils % 63.1; Platelet Count 286 10^3/uL (130-400); RBC 4.81 10^6/uL (3.93-5.22); RDW 13.1 % (11.7-14.6); RDW-SD 42.5 fL; WBC 9.11 10^3/uL (4.4-10.8)
--- NOTE | 2022-11-22 00:19 | ED.GENADUL_ITS ---
Discharge Plan Disposition Patient Disposition: Admit to [facility] Condition: Stable Discharge Details Clinical Impression: Pre-syncope Admit Date/Time: 11/22/22 01:28 Admit Provider: Godwin Fletcher Attending Provider: Godwin Fletcher Primary Care Provider: Soni Alva ED Provider: Beni Davis Medical Decision Making 72 yo female with hx of grave's and denies prior heart disease or cardiac history comes in with feeling lightheaded and though she may pass out. She states she felt fine throughout the day and then around 6pm started to feel lightheaded and faint. She has not had loss of consciousness. She denies chest pain or difficulty breathing, no falls. She arrives with an ekg showing a bifasciular block and no prior ekg to compare to. She is caox4, speaking clearly in no distress on exam. She has no focal deficits, CN II-XII intact, nih of 0. Her symptoms are concerning for presyncope and less likely vertigo. Will obtain troponin, cbc, cmp, cxr and though doesn't seem consistent with vertigo also obtain ct head. No focal deficits so doubt cva. Will also keep on tele. No chest or back pain and normal peripheral pulses so doubt dissection, and no evidence of dvt on exam with no hypoxia or tachycardia so doubt PE ct head read as no acute findings, does have evidence of small lacunar infarct that is likely chronic. Labs unremarkable though does have wbc's and few bacteria, does state now she has had some dysuria. She is stable and feels better with ivf though does still feel lightheaded, still no focal deficits on neuro exam. She is in sinus rhythm still on tele monitor. Given the bifascicular block of undeterminable chronicity given lack of prior ekg will admit for obs on tele and possible echo. Discussed with hospitalist who accepts for admission, one dose of ceftriaxone ordered. Pt updated and agrees with the plan Differential Diagnosis Differential Diagnosis: arrythmia, anemia, dehydration Imaging Data Radiologic Study: Attestation: I personally reviewed and interpreted this imaging study as follows: Imaging: CT Scan Radiologist's impression: IMPRESSION: 1. No evidence for acute cortical infarct. No intracranial hemorrhage.2. Tiny lacunar infarct within the left caudate head extending into the anterior limb of the left internal capsule. This is age indeterminate, but may be subacute to chronic. 3. Mild volume loss with white matter changes most commonly seen with chronic microvascular ischemic disease. Radiologic Study #2: Attestation: I personally reviewed and interpreted this imaging study as follows: Imaging: X-Ray Radiologist's impression: no acute findings Lab Data Lab results reviewed: Yes I reviewed the patient's lab results. ECG Data Attestation: I personally reviewed and interpreted this ECG (s) as follows: Prior ECG tracings: not available for review Interpretation: sinus with rate of 72, bifascicular block, pr 164, no stemi HPI General Date/Time Provider Initiated Documentation: 11/21/22 23:33 . Limitations to Documentation: no limitations . Information obtained by: patient . History of Present Illness 72 year old F presents to the emergency department with the chief complaint of lightheaded, described as moderate, Patient started experiencing this hour(s) (6) and it has been constant. Rest improves symptom(s), Movement worsens symptoms . Patient notes denies chest pain, fever/chills and shortness of breath. Patient did receive the following treatments prior to arrival, none Related Data Home Medications Medication Instructions Recorded Confirmed levothyroxine 100 mcg tablet 100 mcg PO DAILY #1 tab-cap 12/25/13 11/22/22 (Synthroid) gabapentin 300 mg capsule 300 mg PO PRN PRN 07/02/22 11/22/22 Allergies Allergy/AdvReac Type Severity Reaction Status Date / Time ciprofloxacin Allergy Intermediate Headache Verified 11/21/22 23:51 seasonal Allergy Uncoded 11/21/22 23:51 General Stated Complaint: Dizzy/Sync TIFFANY: 3 Review of Systems All systems reviewed & are unremarkable except as noted in HPI and below Constitutional Constitutional: Denies chills, Denies fever(s) and Denies weakness Eyes Eyes: Denies loss of vision Cardiovascular Cardiovascular: Denies chest pain and Denies dyspnea Respiratory Respiratory: Denies cough and Denies dyspnea Gastrointestinal Gastrointestinal: Denies abdominal pain, Denies nausea and Denies vomiting Integumentary/Breasts Skin/Breast: Denies rash Neurologic Neurologic: Denies loss of vision and Denies weakness PFSH All Active Problems (Updated 11/22/22 @ 01:38 by Beni Davis MD) Pre-syncope (Acute) Cubital tunnel syndrome on right (Acute) Posterior subcapsular age-related cataract of left eye (Acute) Hypothyroidism (Chronic) Graves disease (Acute) s/p orbitotomy Hyperlipidemia (Acute) Medical History (Updated 11/22/22 @ 01:38 by Beni Davis MD) Herniated disc s/p surgery L5-S1 Hx of retinal hemorrhage (L) [place] [facility] [place] ptEdda Britton aware Low back pain potentially associated with radiculopathy Thyroid cyst Surgical History History of cataract surgery Hx of appendectomy Hx of hysterectomy Social History Smoking/Tobacco Use Status: Former Tobacco Use Quit Date: 07/22/07 Smoking risk assessment performed?: Yes Alcohol Intake: current Alcohol Intake frequency: a few times a week Alcohol type: wine Drug use: Never Substance use type: does not use Do you feel safe at home: Yes Do you feel safe in your relationship?: Yes Additional Social history: lives alone Exam Const General: no acute distress Orientation: alert HENMT Head: normal to inspection Ears: external ears normal General nose exam: external nose normal Mouth: moist mucous membranes Resp Effort & Inspection: normal respiratory effort and able to speak in complete sentences Auscultation: clear to auscultation bilaterally Cardio Jugular venous pressure: no JVD Rate: regular rate Heart Sounds: no murmurs Skin General skin exam: no rashes or lesions noted Neuro General: patient alert and patient oriented x3 Cranial Nerves: CN's II-XI intact bilaterally Cognition: normal cognition Speech: speech normal Sensory Exam: no sensory deficits noted Extrem General: normal to inspection Psych Mental Status: mental status grossly normal Course Vital Signs Vital signs: Vital Signs Pulse 72 11/21/22 23:45 Respiratory Rate 18 11/21/22 23:45 Blood Pressure 151/85 H 11/21/22 23:45 Pulse Oximetry 96 11/21/22 23:45 Temperature Source Oral 11/21/22 23:45 Pulse 72 11/21/22 23:45 Respiratory Rate 18 11/21/22 23:53 Respiratory Effort Normal, Non-Labored 11/21/22 23:53 Respiratory Depth Normal 11/21/22 23:53 Respiratory Pattern Normal 11/21/22 23:53 Blood Pressure 151/85 H 11/21/22 23:45 Blood Pressure Position Supine 11/21/22 23:45 Pulse Oximetry 96 11/21/22 23:45 Oxygen Delivery Method Room Air 11/21/22 23:45 Oxygen Flow Rate 0 11/21/22 23:45 Pain Level 0 11/21/22 23:45 Lab/Test Results Lab/Test Results: Laboratory Tests Range/Units 11/21/22 23:50 WBC (4.4-10.8) 10^3/uL 9.11 RBC (3.93-5.22) 10^6/uL 4.81 Hgb (11.2-15.7) g/dL 14.0 Hct (36.0-46.0) % 42.5 MCV (80-95) fL 88 MCH (27.0-33.0) pg 29.1 MCHC (32.0-36.0) % 32.9 RDW (11.7-14.6) % 13.1 Plt Count (130-400) 10^3/uL 286 MPV (8.0-11.0) fL 8.5 Immature Gran % 0.4 Neutrophils % 63.1 Lymphocytes % 26.6 Monocytes % 8.2 Eosinophils % 1.4 Basophils % 0.3 Nucleated RBC % (0.0-0.3) % 0.0 Absolute Neutrophils (1.2-6.7) 10^3/uL 5.74 Absolute Lymphocytes (1.2-3.4) 10^3/uL 2.42 Absolute Monocytes (0.1-0.8) 10^3/uL 0.75 Absolute Eosinophils (0.0-0.7) 10^3/uL 0.13 Absolute Basophils (0.0-0.2) 10^3/uL 0.03 PAWSS Have you Been Recently Intoxicated or Drunk Within the Last 30 days?: No Have you Ever Experienced Previous Episodes of Alcohol Withdrawal?: No Have you ever Experienced Withdrawal Seizures?: No Have you ever Experienced Delirium Tremens(DT)s?: No Have you ever undergone Alcohol Rehabilitation Treatment (i.e, inpt ot outpatient treatment programs)?: No Have you ever Experienced Blackouts?: No Have you ever Combined Alcohol with other Downers within the last 90 days?: No Have you ever Combined Alcohol with any other Substance of Abuse during the last 90 days?: No Positive Blood Alcohol level on Presentation? [PCS.BAL]: No Evidence of Increased Autonomic Activity (i.e. HR>120, tremor, sweating, agitation, nausea)?: No Result: 0
[2022-11-22 00:23] LABS: INR 0.9 (0.9-1.1); PTT Activated 23.5 sec (21.5-31.9); Prothrombin Time 9.5 sec (9.3-11.0)
[2022-11-22 00:28] LABS: ALT 22 U/L (14-59); AST 16 U/L (15-37); Alkaline Phosphatase 94 U/L (46-116); BUN 19 mg/dL (7-18); Bilirubin, Total 0.3 mg/dL (0.2-1.0); Calcium 9.8 mg/dL (8.5-10.1); Chloride 105 mmol/L (98-107); Creatine Kinase 172 U/L (26-192); Estimated GFR 59.12 (mL/min/1.73m2); Glucose 117 mg/dL (74-106); Magnesium 1.9 mg/dL (1.8-2.4); Sodium 141 mmol/L (136-145); Total Protein 7.9 g/dL (6.4-8.2); Troponin I < 50 ng/L (<or=60)
[2022-11-22 00:32] LABS: Bilirubin Negative (Negative); Blood Trace-intact (Negative); Clarity Sl Cloudy (Clear); Glucose Negative (Negative); Ketones Negative (Negative); Leukocyte Esterase Moderate (Negative); Nitrite Negative (Negative); Urobilinogen 0.2 mg/dL (Up to 0.2); pH 6.5 (5-8)
[2022-11-22 00:35] LABS: Bacteria Few HPF (Negative); C & S Indicated? Yes; Crystals Negative HPF (Negative); Epithelial Cells Few HPF (Negative); Mucus Negative (Negative); RBC 0-2 HPF (0-2)
--- NOTE | 2022-11-22 00:47 | DI.VRAD_ITS ---
PROCEDURE INFORMATION: Exam: CT Head Without Contrast Exam date and time: 11/22/2022 12:34 AM Age: 72 years old Clinical indication: Stroke-like symptoms; Dizziness/giddiness; Additional info: Dizzy TECHNIQUE: Imaging protocol: Computed tomography of the head without contrast. Radiation optimization: All CT scans at this facility use at least one of these dose optimization techniques: automated exposure control; mA and/or kV adjustment per patient size (includes targeted exams where dose is matched to clinical indication); or iterative reconstruction. Other technique: STROKE PROTOCOL was implemented. COMPARISON: No relevant prior studies available. FINDINGS: Brain: Mild volume loss within the brain parenchyma. Scattered areas of low attenuation are seen throughout the subcortical and periventricular white matter. A tiny, low-density, lacunar infarct is seen within the left caudate head and anterior limb of the left internal capsule. A 5 mm dilated perivascular space or choroidal fissure cyst is seen inferior to the left putamen. No loss of brady-white differentiation to suggest an acute cortical infarct. No extra-axial fluid collection. No midline shift. Cerebral ventricles: No hydrocephalus. Paranasal sinuses: Minimal mucosal thickening within the paranasal sinuses. No fluid levels. Mastoid air cells: The mastoid air cells are well aerated. Orbital cavities: Bilateral lens replacements. Bones/joints: No evidence for a skull fracture. Soft tissues: Unremarkable. IMPRESSION: 1. No evidence for acute cortical infarct. No intracranial hemorrhage. 2. Tiny lacunar infarct within the left caudate head extending into the anterior limb of the left internal capsule. This is age indeterminate, but may be subacute to chronic. 3. Mild volume loss with white matter changes most commonly seen with chronic microvascular ischemic disease. ASSESSMENT: ASPECTS ([place] Stroke Program Early CT Score) is 10. Dictated and Authenticated by: Eunice Villalpando MD. Ordering:INDERJIT Bazan MD
--- NOTE | 2022-11-22 00:48 | DI.VRAD_ITS ---
PROCEDURE INFORMATION: Exam: XR Chest Exam date and time: 11/22/2022 12:19 AM Age: 72 years old Clinical indication: Other: Presyncope TECHNIQUE: Imaging protocol: Radiologic exam of the chest. Views: 1 view. COMPARISON: No relevant prior studies available. FINDINGS: Lungs: The lungs are clear without infiltrate or edema. Pleural spaces: No pleural effusion. No pneumothorax. Heart/Mediastinum: The cardiac silhouette is normal in size. Possible small hiatal hernia. Bones/joints: No acute osseous abnormality. IMPRESSION: No acute findings. Dictated and Authenticated by: Eunice Villalpando MD. Ordering:INDERJIT Bazan MD
[2022-11-22] MEDS: Normal Saline 1,000 ML 125 ML IV ×2 (01:49→18:24)
[2022-11-22] MEDS: cefTRIAXone 1 GM/50 ML BAG IVPB (01:49)
[2022-11-22 03:10] LABS: Troponin I < 50 ng/L (<or=60)
[2022-11-22 03:14] LABS: TSH (W/Ref FT4) 5.71 uIU/mL (0.36-3.74)
[2022-11-22 03:33] LABS: FREE T4 0.89 ng/dL (0.76-1.46)
--- NOTE | 2022-11-22 05:42 | W.PM.HP.N ---
Date of service: 11/22/22 Time of Service: 05:43 Assessment and Plan Assessment and plan (1) Pre-syncope: Start date: 11/21/22 Status: Acute Assessment and plan: This is a 72-year-old lady who had a presyncopal episode which appears to be secondary to an acute situation such as clinical dehydration and UTI. She had minimal symptoms of UTI and at that time she felt lightheaded, she did take her blood pressure which showed a slow pulse in the 40s which has not manifested by cardiac monitoring thus far. She does have a bifascicular block and we will update echocardiogram. This may be cardiovascular and a Zio patch to be applied at discharge if nothing manifest during this observation. She is a full code. (2) Acute dehydration: Start date: 11/21/22 Status: Acute Assessment and plan: Patient responded to IV hydration which we continued and weaned as she advances oral hydration and nutrition. She is not on diuretics chronically. She may need to adjust her thyroid supplement with the TSH being elevated. (3) UTI (urinary tract infection): Start date: 11/21/22 Status: Acute Assessment and plan: Rocephin IV and follow-up on urine culture with oral antibiotics to be continued guided by pathogen and sensitivities. (4) Vertigo: Status: Chronic Assessment and plan: Patient reports chronic vertigo though she is not on medical therapy for this problem. She does have lacunar infarct which may cause some symptoms chronically and neurology consultation may be appropriate if vertiginous type symptoms persist. Further imaging could include MRI of the brain. Follow-up clinically. (5) Bifascicular bundle branch block: Start date: 11/21/22 Status: Acute Assessment and plan: No comparison EKG therefore this is difficult to assess as acute or chronic. She did have a stress test in the past and EKG should be reviewed from previous tracings with cardiology consultation as appropriate. (6) Hypothyroidism: Status: Chronic Assessment and plan: TSH is elevated and patient may want to make sure she is taking her supplement appropriately and follow-up labs in outpatient with PCP to adjust therapy. This could contribute to her overall wellbeing. History of Present Illness History of Present Illness Chief Complaint: Dizziness and near fall Narrative: This is a 72-year-old female patient who lives alone and the evening prior to presentation was lightheaded when she got up to go the window to open the window and felt as if she was going to faint holding onto furniture to sit down. She had no loss of consciousness and no fall and no shortness of breath or chest discomfort at the time of the incident. She denies any diaphoresis. She has had a history of vertigo but is not on medical therapy for this but this felt different than her usual vertigo. She denies any nausea or vomiting. She had no focal neurological complaints at the time of the event. She reported to the ED for evaluation where she was found to have an old lacunar infarct on CT and appeared clinically slightly dehydrated feeling better after IV hydration. She also was found to have a possible UTI. She denied any fever or back discomfort but was having slight dysuria. At the time I saw the patient she was feeling better. She was on cardiac care unit nurse which revealed no specific dysrhythmias in the ED but EKG did show a bifascicular block with no comparisons. She will be scheduled for an echocardiogram which has never been performed. She did have a previous chemical stress test which was painful and done preoperatively more than 5 years ago and she reports that this was essentially negative and did not delay her surgery. She is a full code. Review of Systems Narrative: 13 point review of systems otherwise unrevealing or stable. [facility] All Active Problems (Updated 11/22/22 @ 06:59 by Godwin Fletcher) Bifascicular bundle branch block (Acute) Acute dehydration (Acute) UTI (urinary tract infection) (Acute) Vertigo (Chronic) Pre-syncope (Acute) Cubital tunnel syndrome on right (Acute) Posterior subcapsular age-related cataract of left eye (Acute) Hypothyroidism (Chronic) Graves disease (Acute) s/p orbitotomy Hyperlipidemia (Acute) Medical History Herniated disc s/p surgery L5-S1 Hx of retinal hemorrhage (L) currently [place] [facility] [place] ptEdda Britton aware Low back pain potentially associated with radiculopathy Thyroid cyst Surgical History History of cataract surgery Hx of appendectomy Hx of hysterectomy Social History Smoking/Tobacco Use Status: Former Tobacco Use Quit Date: 07/22/07 Smoking risk assessment performed?: Yes Alcohol Intake: current Alcohol Intake frequency: a few times a week Alcohol type: wine Drug use: Never Substance use type: does not use Do you feel safe at home: Yes Do you feel safe in your relationship?: Yes Additional Social history: lives alone Meds Allergies and Home Medications Allergies Allergy/AdvReac Type Severity Reaction Status Date / Time ciprofloxacin Allergy Intermediate Headache Verified 11/21/22 23:51 seasonal Allergy Uncoded 11/21/22 23:51 Home Medications Medication Instructions Recorded Confirmed Type levothyroxine 100 mcg tablet 100 mcg PO DAILY #1 tab-cap 12/25/13 11/22/22 History (Synthroid) gabapentin 300 mg capsule 300 mg PO PRN PRN 07/02/22 11/22/22 History Exam Narrative Exam Narrative: General: Patient is lying in bed comfortable with normal conversation, she is in no acute distress, moderately obese. She is alert and oriented x3. HEENT: Normocephalic, eyes with pupils equal and reactive to light symmetrically, extraocular movement tact and sclera anicteric. Oropharynx with dry mucosa. Neck: Supple without JVD. Back: Stooped posture without CVA tenderness. Lungs: Fair aeration clear to auscultation percussion. Breast: Exam deferred. Heart: Regular rate and rhythm with no murmurs gallops appreciated. Abdomen: Normal contour, soft and nontender to palpation with no palpable hepatosplenomegaly. Bowel sounds positive all quadrants. Genitalia/rectal: Exam deferred. Extremity: Without clubbing, cyanosis or pitting edema. Peripheral pulses intact. Good cap refill. Skin: Normal color, warm and dry. Neuro: Cranial nerves II through XII grossly intact, no focal motor deficits. No tremor. DTRs physiologic and symmetrical. Romberg not tested. Psych: Normal affect and mood. Remote and recent memory grossly intact. No abnormal thought processes. Results Imaging Imaging Studies: Exam: CT Head Without Contrast Exam date and time: 11/22/2022 12:34 AM Age: 72 years old Clinical indication: Stroke-like symptoms; Dizziness/giddiness; Additional info: Dizzy TECHNIQUE: Imaging protocol: Computed tomography of the head without contrast. Radiation optimization: All CT scans at this facility use at least one of these dose optimization techniques: automated exposure control; mA and/or kV adjustment per patient size (includes targeted exams where dose is matched to clinical indication); or iterative reconstruction. Other technique: STROKE PROTOCOL was implemented. COMPARISON: No relevant prior studies available. FINDINGS: Brain: Mild volume loss within the brain parenchyma. Scattered areas of low attenuation are seen throughout the subcortical and periventricular white matter. A tiny, low-density, lacunar infarct is seen within the left caudate head and anterior limb of the left internal capsule. A 5 mm dilated perivascular space or choroidal fissure cyst is seen inferior to the left putamen. No loss of brady-white differentiation to suggest an acute cortical infarct. No extra-axial fluid collection. No midline shift. Cerebral ventricles: No hydrocephalus. Paranasal sinuses: Minimal mucosal thickening within the paranasal sinuses. No fluid levels. Mastoid air cells: The mastoid air cells are well aerated. Orbital cavities: Bilateral lens replacements. Bones/joints: No evidence for a skull fracture. Soft tissues: Unremarkable. IMPRESSION: 1. ? No evidence for acute cortical infarct. No intracranial hemorrhage. 2. ? Tiny lacunar infarct within the left caudate head extending into the anterior limb of the left internal capsule. This is age indeterminate, but may be subacute to chronic. 3. ? Mild volume loss with white matter changes most commonly seen with chronic microvascular ischemic disease. Exam: XR Chest Exam date and time: 11/22/2022 12:19 AM Age: 72 years old Clinical indication: Other: Presyncope TECHNIQUE: Imaging protocol: Radiologic exam of the chest. Views: 1 view. COMPARISON: No relevant prior studies available. FINDINGS: Lungs: The lungs are clear without infiltrate or edema. Pleural spaces: No pleural effusion. No pneumothorax. Heart/Mediastinum: The cardiac silhouette is normal in size. Possible small hiatal hernia. Bones/joints: No acute osseous abnormality. IMPRESSION: No acute findings. Labs 11/21/22 23:50 11/21/22 23:50 Labs: Laboratory Results - last 24 hr 11/21/22 11/21/22 11/21/22 23:50 23:50 23:50 WBC 9.11 RBC 4.81 Hgb 14.0 Hct 42.5 MCV 88 MCH 29.1 MCHC 32.9 RDW 13.1 Plt Count 286 MPV 8.5 Immature Gran % 0.4 Neutrophils % 63.1 Lymphocytes % 26.6 Monocytes % 8.2 Eosinophils % 1.4 Basophils % 0.3 Nucleated RBC % 0.0 Absolute Neutrophils 5.74 Absolute Lymphocytes 2.42 Absolute Monocytes 0.75 Absolute Eosinophils 0.13 Absolute Basophils 0.03 PT 9.5 INR 0.9 APTT 23.5 Sodium 141 Potassium 4.0 Chloride 105 Carbon Dioxide 27.0 Anion Gap 9.0 BUN 19 H Creatinine 1.0 Est GFR (CKD-EPI 2020) 59.12 Glucose 117 H Calcium 9.8 Magnesium 1.9 Total Bilirubin 0.3 AST 16 ALT 22 Alkaline Phosphatase 94 Creatine Kinase 172 Troponin I < 50 Total Protein 7.9 Albumin 4.0 TSH Free T4 Urine Color Urine Clarity Urine pH Ur Specific [place] Urine Protein Urine Ketones Urine Blood Urine Nitrite Urine Bilirubin Urine Urobilinogen Ur Leukocyte Esterase Urine RBC Urine WBC Ur Epithelial Cells Urine Crystals Urine Bacteria Urine Mucus Ur Culture Indicated? Urine Glucose 11/21/22 11/22/22 11/22/22 23:58 02:45 02:45 WBC RBC Hgb Hct MCV MCH MCHC RDW Plt Count MPV Immature Gran % Neutrophils % Lymphocytes % Monocytes % Eosinophils % Basophils % Nucleated RBC % Absolute Neutrophils Absolute Lymphocytes Absolute Monocytes Absolute Eosinophils Absolute Basophils PT INR APTT Sodium Potassium Chloride Carbon Dioxide Anion Gap BUN Creatinine Est GFR (CKD-EPI 2020) Glucose Calcium Magnesium Total Bilirubin AST ALT Alkaline Phosphatase Creatine Kinase Troponin I < 50 Total Protein Albumin TSH 5.71 H Free T4 0.89 Urine Color Yellow Urine Clarity Sl Cloudy Urine pH 6.5 Ur Specific [place] 1.010 Urine Protein Negative Urine Ketones Negative Urine Blood Trace-intact H Urine Nitrite Negative Urine Bilirubin Negative Urine Urobilinogen 0.2 Ur Leukocyte Esterase Moderate H Urine RBC 0-2 Urine WBC 3-5 Ur Epithelial Cells Few Urine Crystals Negative Urine Bacteria Few Urine Mucus Negative Ur Culture Indicated? Yes Urine Glucose Negative Last Vital Signs Temp 36.5 C 11/22/22 02:34 Pulse 85 11/22/22 02:40 Resp 18 11/22/22 02:34 BP 161/91 H 11/22/22 02:34 Pulse Ox 96 11/22/22 02:34 PAWSS Have you Been Recently Intoxicated or Drunk Within the Last 30 days?: No Have you Ever Experienced Previous Episodes of Alcohol Withdrawal?: No Have you ever Experienced Withdrawal Seizures?: No Have you ever Experienced Delirium Tremens(DT)s?: No Have you ever undergone Alcohol Rehabilitation Treatment (i.e, inpt ot outpatient treatment programs)?: No Have you ever Experienced Blackouts?: No Have you ever Combined Alcohol with other Downers within the last 90 days?: No Have you ever Combined Alcohol with any other Substance of Abuse during the last 90 days?: No Positive Blood Alcohol level on Presentation? [PCS.BAL]: No Evidence of Increased Autonomic Activity (i.e. HR>120, tremor, sweating, agitation, nausea)?: No Result: 0 Time Spent Time spent with Patient: >75 minutes Time was spent: preparing to see the patient(eg.review tests), obtaining and/or reviewing separately otained hiistory, ordering medications,tests, procedures, referring, communicating with other health director medicare sales, indepentently interpreting results and care coordination
[2022-11-22] MEDS: Levothyroxine 100 MCG TAB PO (06:10)
[2022-11-22] MEDS: Enoxaparin 40 MG/0.4 ML SYR SC (08:02)
[2022-11-22 08:38] LABS: HCT 39.9 % (36.0-46.0); HGB 13.2 g/dL (11.2-15.7); MCH 29.4 pg (27.0-33.0); MCHC 33.1 % (32.0-36.0); MCV 89 fL (80-95); MPV 8.2 fL (8.0-11.0); Platelet Count 231 10^3/uL (130-400); RBC 4.49 10^6/uL (3.93-5.22); RDW-SD 42.4 fL; WBC 6.36 10^3/uL (4.4-10.8)
[2022-11-22] MEDS: Normal Saline 1,000 ML 12 ML IV (08:50)
[2022-11-22 08:59] LABS: ALT 21 U/L (14-59); AST 14 U/L (15-37); Albumin 3.4 g/dL (3.4-5.0); Alkaline Phosphatase 84 U/L (46-116); Anion Gap 7.5 mmol/L (3-11); BUN 14 mg/dL (7-18); Bilirubin, Total 0.4 mg/dL (0.2-1.0); CO2 27.5 mmol/L (21.0-32.0); CREATININE 0.8 mg/dL (0.55-1.02); Calcium 8.9 mg/dL (8.5-10.1); Chloride 107 mmol/L (98-107); Estimated GFR 77.27 (mL/min/1.73m2); Glucose 135 mg/dL (74-106); Magnesium 1.8 mg/dL (1.8-2.4); Potassium 3.8 mmol/L (3.5-5.1); Sodium 142 mmol/L (136-145); Total Protein 6.9 g/dL (6.4-8.2)
[2022-11-22 09:02] LABS: Troponin I < 50 ng/L (<or=60)
--- NOTE | 2022-11-22 09:17 | DI.US_ITS ---
APPROVED REPORT EXAM: Comprehensive 2D, Doppler, and color-flow Echocardiogram Patient Location: In-Patient Room/Bed: 226 Manager In Training: Dariusz Plascencia RDMS, RVT Indications: presyncope, bi-fasicular block Other Information Study Quality: Technically Difficult. Technically limited study due to inability to position patient, breast surgery. Conclusion Technically difficult and suboptimal study Left ventricle appears normal in size wall thickness and systolic function. Ejection fraction is 60% . No segmental wall motion abnormalities are identified Right ventricle is grossly normal in size Both atria are normal in size There is no structural or hemodynamically significant valvular disease Wall motion Left Ventricle The left ventricle is normal size. The overall left ventricular systolic function appears normal. The re is normal left ventricular wall thickness. Regional wall motion is grossly normal. There is no doron tricular septal defect visualized. LVEF is 60%. Right Ventricle Right ventricle is grossly normal in size. Atria The left atrium size is grossly normal. The right atrium size is grossly normal. The interatrial sept um is intact with no evidence for an atrial septal defect. Aortic Valve The aortic valve is normal in structure. There is no aortic valvular stenosis. No aortic regurgitatio n is present. Mitral Valve The mitral valve is normal in structure. No evidence of mitral valve stenosis. Trace mitral regurgita tion. Tricuspid Valve The tricuspid valve is normal in structure. There is no tricuspid valve stenosis. Trace tricuspid reg urgitation. Pulmonic Valve Pulmonic valve is not well visualized. There is no pulmonic valvular stenosis. Trace pulmonic regurgi tation. Great Vessels The aortic root is normal in size. Ascending aorta is not well visualized. Aortic arch is normal in c aliber. IVC is normal in size and collapses >50% with inspiration. Pericardium There is no pericardial effusion. 2D Dimensions IVSD d PLAX 0.70 cm F: 0.6-1.0 LVPW d PLAX 0.71 cm F: 0.6 - 1.0 LVID d PLAX 3.53 cm F: 3.8 - 5.2 LVDs 2.30 cm F: 2.2 - 3.5 Ao Root d 3.31 cm F: 2.7 - 3.3 LV EF Teichholz 64.8 % FS 34.60 % LV Diastology E/A Ratio 1.1 MV E Vmax 0.78 (0.4-1.3 m/s) MV A Vmax 0.70 (0.4-1.3 m/s) MV E/A Ratio 1.10 Aortic Valve LVOT Area 3.12 cm2 AoV Area Vmax 1.54 cm2 LVOT Vmax 0.61 m/s AoV Area/ BSA (Vmax) 0.81 cm2/m2 LVOT Mean Neil. 0.42 m/s DENISHA Mean Neil. 1.47 cm2 LVOT Peak Grad 1.5 mmHg DENISHA Mean Neil. Index 0.77 cm2/m2 LVOT Mean Grad 0.8 mmHg LVOT VTI 0.135 m LVOT Diam s 1.95 cm AoV Vmax 1.23 m/s Velocity Ratio 0.50 AoV Mean Neil. 0.90 m/s AoV Peak Grad 6.1 mmHg LVOT SV 42.08 mL AoV Mean Grad 3.6 mmHg AoV VTI 0.245 m AoV Area VTI 1.72 cm2 AoV Area/ BSA (VTI) 0.90 cm/m2 Mitral Valve MV DT 259 (160-240 msec) MV PHT 75 msec MV Area PHT 2.93 cm2 Pulmonary Valve PV Vmax 1.17 (0.5-1.5 m/s) RVOT Peak Gr. 0.85 mmHg PV Peak Grad 5.5 mmHg RVOT Mean Gr. 0.45 mmHg PV Mean Grad 4.2 mmHg RVOT VTI 0.092 m PV VTI 0.209 m RVOT Vmax 0.46 m/s
--- NOTE | 2022-11-22 10:04 | INITIAL_ITS ---
- If Service Date Differs Date of service: 11/22/22 Time of Service: 10:04 Care Management Initial Assess REASON FOR HOSPITALIZATION:: Pre-syncope, acute dehydration, UTI PAST MEDICAL HISTORY/PAST SURGICAL HISTORY:: All Active Problems (Updated 11/22/22 @ 06:59 by Godwin Fletcher). Bifascicular bundle branch block (Acute). Acute dehydration (Acute). UTI (urinary tract infection) (Acute). Vertigo (Chronic). Pre-syncope (Acute). Cubital tunnel syndrome on right (Acute). Posterior subcapsular age-related cataract of left eye (Acute). Hypothyroidism (Chronic). Graves disease (Acute). s/p orbitotomy. Hyperlipidemia (Acute). Medical History . Herniated disc. s/p surgery L5-S1. Hx of retinal hemorrhage. (L) currently being worked on by [facility] per pt. Tobi costello. Low back pain potentially associated with radiculopathy. Thyroid cyst. Surgical History . History of cataract surgery. Hx of appendectomy. Hx of hysterectomy PREVIOUS FUNCTIONAL STATUS/SOCIAL/FAMILY SUPPORTS:: Edith lives alone in [facility]. 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 She is independent with her ADL's and within the community at baseline. Her daughter and sister live both have houses [place] and are very supportive. CURRENT FUNCTIONAL STATUS:: Edith was sitting in her recliner watching TV when CM met with her. She is awake, pleasant and easily engages in conversation. Edith shares that she is worried about falling and not being able to get to a phone and expresses interest in purchasing a [employer], CM provided her with a brochure. Edith adds that she was formerly an software engineering manager for [employer] and used to enjoy riding motorcycles and she is not to proud to wear a lifeline. ADVANCE DIRECTIVES:: None on file Has patient been provided with info about the portal/API?: Yes Did the patient sign up for the portal?: No CODE STATUS:: Full Code INSURANCE COVERAGE / FINANCIAL ISSUES:: [employer]. Medicare CURRENT HOME/COMMUNITY SERVICES/EQUIPMENT:: None PRIMARY CARE PHYSICIAN:: Soni Alva POTENTIAL DISCHARGE NEEDS:: Evaluations for further needs PATIENT/FAMILY EDUCATION NEEDS:: Review discharge instructions, limitations and plan to follow up with community providers. Discuss ask me three. TRANSPORTATION:: Via private vehicle with her daughter. PLAN:: Edith continues to be closely monitored. Anticipate, she will discharge home with [facility] PT (if indicated) when medically ready per provider. She will follow up with community providers and her discharge plan of care as prescribed. CM will follow.
--- NOTE | 2022-11-22 12:34 | PGE_ITS ---
Date of Service Date of service: 11/22/22 Time of Service: 13:00 Assessment and Plan Assessment and plan (1) Pre-syncope: Start date: 11/21/22 Status: Acute Assessment and plan: She has a bifascicular block. Echo completed - suboptimal due to technically difficult but no segmental wall motion abnormalities, EF 60% RV normal in size, both atria normal in size, no valvular disease. This may be cardiovascular and a Zio patch to be applied at discharge if nothing manifest during this observation. She is a full code. (2) Acute dehydration: Start date: 11/21/22 Status: Acute Assessment and plan: She is not on diuretics chronically. She may need to adjust her thyroid supplement with the TSH being elevated. (3) UTI (urinary tract infection): Start date: 11/21/22 Status: Acute Assessment and plan: Rocephin IV - urine culture pending with oral antibiotics to be continued guided by pathogen and sensitivities. (4) Vertigo: Status: Chronic Assessment and plan: Patient reports chronic vertigo though she is not on medical therapy for this problem. She does have lacunar infarct which may cause some symptoms chroni tayo and neurology consultation may be appropriate if vertiginous type symptoms persist. Further imaging could include MRI of the brain. Follow-up clinically. (5) Bifascicular bundle branch block: Start date: 11/21/22 Status: Acute Assessment and plan: No comparison EKG therefore this is difficult to assess as acute or chronic. She did have a stress test in the past and EKG should be reviewed from previous tracings with cardiology consultation as appropriate. (6) Hypothyroidism: Status: Chronic Assessment and plan: TSH is elevated and patient may want to make sure she is taking her supplement appropriately and follow-up labs in outpatient with PCP to adjust therapy. This could contribute to her overall wellbeing. Subjective Subjective Patient reports: no new complaints Objective Last Vital Signs Temp 37.5 C 11/22/22 11:28 Pulse 71 11/22/22 11:28 Resp 16 11/22/22 11:28 BP 123/77 11/22/22 11:28 Pulse Ox 95 11/22/22 11:28 Laboratory Results - last 24 hr 11/21/22 11/21/22 11/21/22 23:50 23:50 23:50 WBC 9.11 RBC 4.81 Hgb 14.0 Hct 42.5 MCV 88 MCH 29.1 MCHC 32.9 RDW 13.1 Plt Count 286 MPV 8.5 Immature Gran % 0.4 Neutrophils % 63.1 Lymphocytes % 26.6 Monocytes % 8.2 Eosinophils % 1.4 Basophils % 0.3 Nucleated RBC % 0.0 Absolute Neutrophils 5.74 Absolute Lymphocytes 2.42 Absolute Monocytes 0.75 Absolute Eosinophils 0.13 Absolute Basophils 0.03 PT 9.5 INR 0.9 APTT 23.5 Sodium 141 Potassium 4.0 Chloride 105 Carbon Dioxide 27.0 Anion Gap 9.0 BUN 19 H Creatinine 1.0 Est GFR (CKD-EPI 2020) 59.12 Glucose 117 H Calcium 9.8 Magnesium 1.9 Total Bilirubin 0.3 AST 16 ALT 22 Alkaline Phosphatase 94 Creatine Kinase 172 Troponin I < 50 Total Protein 7.9 Albumin 4.0 TSH Free T4 Urine Color Urine Clarity Urine pH Ur Specific [place] Urine Protein Urine Ketones Urine Blood Urine Nitrite Urine Bilirubin Urine Urobilinogen Ur Leukocyte Esterase Urine RBC Urine WBC Ur Epithelial Cells Urine Crystals Urine Bacteria Urine Mucus Ur Culture Indicated? Urine Glucose 11/21/22 11/22/22 11/22/22 23:58 02:45 02:45 WBC RBC Hgb Hct MCV MCH MCHC RDW Plt Count MPV Immature Gran % Neutrophils % Lymphocytes % Monocytes % Eosinophils % Basophils % Nucleated RBC % Absolute Neutrophils Absolute Lymphocytes Absolute Monocytes Absolute Eosinophils Absolute Basophils PT INR APTT Sodium Potassium Chloride Carbon Dioxide Anion Gap BUN Creatinine Est GFR (CKD-EPI 2020) Glucose Calcium Magnesium Total Bilirubin AST ALT Alkaline Phosphatase Creatine Kinase Troponin I < 50 Total Protein Albumin TSH 5.71 H Free T4 0.89 Urine Color Yellow Urine Clarity Sl Cloudy Urine pH 6.5 Ur Specific [place] 1.010 Urine Protein Negative Urine Ketones Negative Urine Blood Trace-intact H Urine Nitrite Negative Urine Bilirubin Negative Urine Urobilinogen 0.2 Ur Leukocyte Esterase Moderate H Urine RBC 0-2 Urine WBC 3-5 Ur Epithelial Cells Few Urine Crystals Negative Urine Bacteria Few Urine Mucus Negative Ur Culture Indicated? Yes Urine Glucose Negative 11/22/22 11/22/22 11/22/22 08:32 08:32 08:32 WBC 6.36 RBC 4.49 Hgb 13.2 Hct 39.9 MCV 89 MCH 29.4 MCHC 33.1 RDW 13.0 Plt Count 231 MPV 8.2 Immature Gran % Neutrophils % Lymphocytes % Monocytes % Eosinophils % Basophils % Nucleated RBC % Absolute Neutrophils Absolute Lymphocytes Absolute Monocytes Absolute Eosinophils Absolute Basophils PT INR APTT Sodium 142 Potassium 3.8 Chloride 107 Carbon Dioxide 27.5 Anion Gap 7.5 BUN 14 Creatinine 0.8 Est GFR (CKD-EPI 2020) 77.27 Glucose 135 H Calcium 8.9 Magnesium 1.8 Total Bilirubin 0.4 AST 14 L ALT 21 Alkaline Phosphatase 84 Creatine Kinase Troponin I < 50 Total Protein 6.9 Albumin 3.4 TSH Free T4 Urine Color Urine Clarity Urine pH Ur Specific [place] Urine Protein Urine Ketones Urine Blood Urine Nitrite Urine Bilirubin Urine Urobilinogen Ur Leukocyte Esterase Urine RBC Urine WBC Ur Epithelial Cells Urine Crystals Urine Bacteria Urine Mucus Ur Culture Indicated? Urine Glucose PAWSS Have you Been Recently Intoxicated or Drunk Within the Last 30 days?: No Have you Ever Experienced Previous Episodes of Alcohol Withdrawal?: No Have you ever Experienced Withdrawal Seizures?: No Have you ever Experienced Delirium Tremens(DT)s?: No Have you ever undergone Alcohol Rehabilitation Treatment (i.e, inpt ot outpatient treatment programs)?: No Have you ever Experienced Blackouts?: No Have you ever Combined Alcohol with other Downers within the last 90 days?: No Have you ever Combined Alcohol with any other Substance of Abuse during the last 90 days?: No Positive Blood Alcohol level on Presentation? [PCS.BAL]: No Evidence of Increased Autonomic Activity (i.e. HR>120, tremor, sweating, agitation, nausea)?: No Result: 0
--- NOTE | 2022-11-22 16:12 | IN_ITS ---
Date of service: 11/22/22 Time of Service: 15:22 PT Notes Visit Reasons: Presyncope,UTI,Dehydration Physical Therapy Inpatient Initial Evaluation Date: 11/22/2022 Referring Doctor: Godwin Kate MD PT Orders: PT CONSULT: Fall safety assessment Precautions: Fall. Standard. Activity as tolerated. Patient Profile/Admitting Diagnosis: Edith is a 72-year-old female who presented to the ED on 11/22/2022 with complaints of lightheadedness and sensation of her to pass out. Patient is admitted to [facility] for management of presyncope, acute dehydration, UTI, vertigo, bifascicular bundle branch block, and hypothyroidism. PMHX: All Active Problems?(Updated 11/22/22 @ 06:59 by Godwin Fletcher) Bifascicular bundle branch block (Acute) Acute dehydration (Acute) UTI (urinary tract infection) (Acute) Vertigo (Chronic) Pre-syncope (Acute) Cubital tunnel syndrome on right (Acute) Posterior subcapsular age-related cataract of left eye (Acute) Hypothyroidism (Chronic) Graves disease (Acute) s/p orbitotomy Hyperlipidemia (Acute) Medical History? Herniated disc s/p surgery L5-S1 Hx of retinal hemorrhage (L) currently being worked on by [facility] [place] per pt. aLurae aware Low back pain potentially associated with radiculopathy Thyroid cyst Surgical History? History of cataract surgery Hx of appendectomy Hx of hysterectomy Social History/Home Situation: Lives alone in a private home with 3 steps to enter. Has a flight of steps to the basement. 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 Daughter and sister live close by and have been closely involved in the patient's affairs. Equipment Owned/DME: None Subjective: Feels much improved. Denies lightheadedness, dizziness, and vertiginous symptoms throughout session. Considering alert device that she can use whenever needed. Denies back pain during ambulation. Objective: General Observation: Telemetry monitoring in place. IV through the left UE. Mental Status: Alert and oriented as to person, place, time, and purpose. Able to pay attention, focus, and respond appropriately. Pain: Denies Vital Signs: WNL as monitored via telemetry ROM: Right Upper Extremity: Shoulder Flexion WFL. Shoulder abduction WFL. Elbow flexion WFL. Wrist flexion WFL. Functional opening and closing of hand WFL. Left Upper Extremity: Shoulder Flexion WFL. Shoulder abduction WFL. Elbow flexion WFL. Wrist flexion WFL. Functional opening and closing of hand WFL. Right Lower Extremity: Hip flexion WFL. Hip abduction WFL. Knee flexion WFL. Ankle dorsiflexion WFL. Ankle plantarflexion WFL. Left Lower Extremity: Hip flexion WFL. Hip abduction WFL. Knee flexion WFL. Ankle dorsiflexion WFL. Ankle plantarflexion WFL. Strength: Right Upper Extremity: Shoulder flexors 4/5. Shoulder abductors 4/5. Elbow flexors 5/5. Elbow extensors 5/5. Circular Knife Machine Cutter strong. Left Upper Extremity: Shoulder flexors 4/5. Shoulder abductors 4/5. Elbow flexors 5/5. Elbow extensors 5/5. Circular Knife Machine Cutter strong. Right Lower Extremity: Hip flexors 4/5. Hip abductors 4/5. Knee flexors 5/5. Knee extensors 4/5. Ankle dorsiflexors 4/5. Ankle plantarflexors 4/5. Left Lower Extremity: Hip flexors 4/5. Hip abductors 4/5. Knee flexors 5/5. Knee extensors 4/5. Ankle dorsiflexors 4/5. Ankle plantarflexors 4/5. Bed Mobility/Transfers: Rolling independent Supine to sit independent Sit to supine independent Sit to stand independent Stand to sit independent Bed to toilet seat supervision Gait: Instructed patient with level surface ambulation of 300 feet requiring supervis ion assist. No SOB. No LOB. Gait pattern unremarkable. Denies dizziness/lightheadedness through out activity. Balance: Static Sitting: Normal Dynamic Sitting: Normal Static Standing: Good Dynamic Standing: Good Special Tests: Mobility Limitations Standardized Measure [facility] AM-PAC 6 clicks Basic Mobility Inpatient Short Form: Raw Score: 23 CMS Score: 11% deficit 30-second chair rise: 7x without use of B UE with report of fatigue in B quads that resolved with rest 4-stage Balance test: Able to tolerate feet together and semi-tandem stance for 10 seconds, unable with full tandem and one-legged stance. Informed Consent/Education: Patient was instructed in purpose of PT consult and plan of care. Agreeable to proceed with established PT POC to achieve personal goals. Assessment: Edith is a 72-year-old female who presented to the ED on 11/22/2022 with complaints of lightheadedness and sensation of her to pass out. Patient is admitted to [facility] for management of presyncope, acute dehydration, UTI, vertigo, bifascicular bundle branch block, and hypothyroidism. Spoke with patient about possibility of getting an emergency alert device for home, MITESH Leon consulted. Patient presents with clinical signs and symptoms consistent with current/admitting diagnoses that have resulted to mobility limitations, gait instability, generalized weakness, and overall ADL decline as demonstrated by the following impairment level findings: 1. Decreased strength to B hip muscle groups 2. Impaired standing balance 3. Impaired activity tolerance Impairments are contributing to the following functional limitations: 1. Difficulty with ambulation without assistive device 2. Increased completion time for mobility ADL performance 3. Increased risk for falls 4. Difficulty with managing steps alone safely Patient is assessed as a 11000 low complexity based on the following: History: 72-year-old female with past medical history as indicated above Examination: Demonstrable impairment in strength, balance, and mobility level with underlying impairments and functional limitations as exhibited above as well as deficit score of 11% utilizing the [facility] Mobility Inpatient Short Form Presentation: Stable Decision Makin moderate complexity Goals: Goals X1 week 1. Bed-Chair independent with no AD 2. Chair-Bed independent with no AD 3. Independent gait on level surface with use of no AD/not holding onot IV pole for at least 300 feet without report of pain nor dyspnea 4. Independent stair negotiation while holding onto B rails for at least 12 steps without report of pain nor dyspnea 5. Independent with home exercise program PLAN OF CARE/TREATMENT PLAN: 1-2x/day, 7 days/week x 1 week. Plan of care has been reviewed with the ACTIVITY THERAPY SPECIALIST providing the service under Physical Therapy direction. Provide HEP for standing exercises while holding onto firm surface for B LE strengthening. Progress ambulation without AD/IV pole for up to 300 feet. Train on deep breathing exercises to minimize fatigue. Train in stair negotiation. Monitor HR and oxygen during session. DISCHARGE RECOMMENDATIONS: [] Home with no services [] [X] Home with services. Patient will benefit from home health PT services in order to progress mobility level using no ambulatory device, assess home safety, identify additional equipment needs, and establish a functional maintenance program that will increase ability of patient to remain at home. [] Home with outpatient PT [] [] SNF for continued rehabilitation [] [] Senior Living Care [] [] SNF versus LTC based on ability to participate and progress [] TREATMENT CODE/TIME: 49657 x 21 minutes beginning at 15:22 PM. Thank you for the opportunity to participate in the care of this patient. Miranda Jimenez PT, DPT, CLT [facility] [place], [place]
--- NOTE | 2022-11-22 18:55 | W.PM.DS.N ---
Date of service: 11/22/22 Time of Service: 18:55 DS: Diagnosis Discharge Diagnosis (1) Pre-syncope: Status: Acute (2) Acute dehydration: Status: Acute (3) UTI (urinary tract infection): Status: Acute (4) Vertigo: Status: Chronic (5) Bifascicular bundle branch block: Status: Acute (6) Hypothyroidism: Status: Chronic Discharge Plan Disposition Patient Disposition: Home Condition: Good Discharge Details Reason For Visit: Presyncope,UTI,Dehydration Admit Date/Time: 11/22/22 01:28 Admit Provider: Godwin Fletcher Attending Provider: Godwin Fletcher Primary Care Provider: Soni Alva Hospital Course Hospital Course: This is a 72-year-old female patient who lives alone, presented to the [facility] ED with complaint of feeling lightheaded after standing from seated to walk to open the window and felt as if she was going to faint, having to hold onto furniture to sit down.? She had no loss of consciousness and no fall and no shortness of breath or chest discomfort at the time of the incident.? She denied any diaphoresis.? She has a history of vertigo but is not on medical therapy for this, ?she stated this felt different than her usual vertigo.? She denied any nausea or vomiting.? She had no focal neurological complaints at the time of the event.? In the ED she was found to have an old lacunar infarct on CT and appeared clinically slightly dehydrated feeling better after IV hydration.? She also was found to have a possible UTI.? She denied any fever or back discomfort but was having slight dysuria.?The hospital monitor which revealed no specific dysrhythmias in the ED but EKG did show a bifascicular block with no comparisons.?Labs unremarkable, except TSH 5.71, electrolytes normal, ?She was placed on observation status on the medical floor on telemetry. She had no further episodes.? She had an echocardiogram with a 60% ejection fraction; right ventricle is normal in size, left ventricle also normal in size, no segmental wall motion, no structural or hemodynamically significant valvular disease.? Her vital signs were normal.? She never had orthostatic hypotension. She was treated with Fosfomycin for her UTI.? She is discharged to home stable with instruction to follow up with her PCP regarding her TSH, she is on 100 mcg levothyroxine daily, and results of her pending lipid panel.?She has been instructed to take a log of her blood pressure and bring it with her to her next PCP appointment, it has been running slightly high - 140-150s/80-90d. Recommend outpatient cardiac event monitor and possible cardiology referral. Discussed with Dr Gregg. Home Meds and New Rx's Prescriptions: Continued levothyroxine [Synthroid] 100 MCG tablet 100 mcg PO DAILY Qty: 1 gabapentin 300 mg capsule 300 mg PO PRN PRN Patient Comments: pt states has not taken in a long time Discharge Instructions Instructions: Fosfomycin (By mouth), Dehydration (DC), Urinary Tract Infection in Women (DC), Hypertension (DC), Holter Monitor (GEN) Additional Instructions: Your echocardiogram was normal. Follow up with your PCP for a cardiac event recorder for 2 weeks. Drink plenty of fluids. Keep a log of your blood pressure three times a day and take it with you to your PCP appointment. Continue your thyroid medication as prescribed, your TSH was elevated during your hospital stay. Your PCP will adjust your levothyroxine as they see appropriate. Your cholesterol was high this time last year, we did recheck it, those results are pending. You are not on any medication for your cholesterol currently. Your PCP will let you know the results and if there is a need for medication at this time. You have had a complete course of antibiotics for a urinary tract infection. Should you have any more symptoms please let your PCP know when you see her. Stand Alone Forms: Nursing Discharge Form Referrals: Soni Alva [Primary Care Provider] - (1-2 weeks - recommend out patient cardiac event recorder) Activity:: Activity as Tolerated Equipment/Supplies:: No Equipment Needed Diet:: Low Sodium Discharge Orders Discharge Orders: Discharge Order (Routine); Ordered 11/22/22 Ordered By: Rosi Pressley Discharge Data Discharge Date/Time-TO BE ENTERED AT DEPARTURE: 11/22/22 19:39 DS: Summary Time Spent with Patient providing and/or coordinating discharge services: Greater than 30 minutes Status at Discharge Functional status at discharge: independent ambulation Overall status at discharge: patient is back to baseline Mental Status: mental status grossly normal Speech and Movement: speech and movement normal Mood: congruent mood Affect: normal affect Exam Psych Mental Status: mental status grossly normal Speech and Movement: speech and movement normal Mood: congruent mood Affect: normal affect DS: Data Vitals/I&O Vitals and I&O: Vital Signs Temperature 36.7 C 11/22/22 15:08 Temperature Source Tympanic 11/22/22 15:08 Pulse 70 11/22/22 15:08 Pulse Rhythm Regular 11/22/22 15:09 Pulse 82 11/22/22 02:01 Respiratory Rate 18 11/22/22 15:08 Respiratory Effort Normal 11/22/22 15:09 Respiratory Depth Normal 11/22/22 15:09 Respiratory Pattern Normal 11/22/22 15:09 Blood Pressure 159/98 H 11/22/22 15:08 Blood Pressure Mean 103 11/22/22 02:01 Blood Pressure Position Supine 11/21/22 23:45 Pulse Oximetry 99 11/22/22 15:08 Oxygen Delivery Method Room Air 11/22/22 15:08 Oxygen Flow Rate 0 11/22/22 15:08 Pain Level 0 11/22/22 15:08 Intake & Output 11/21/22 11/22/22 11/22/22 23:59 11:59 23:59 Intake Total 1927.083 / 2041.883 114.8 / 2041.883 Output Total 1500 / 2500 1000 / 2500 Balance 427.083 / -458.117 -885.2 / -458.117 Weight 77.111 kg 78 kg Intake: IV 1927.083 / 2041.883 114.8 / 2041.883 Output: Urine 1500 / 2500 1000 / 2500 Other: Urine Color Yellow Pale Yellow Urine Appearance Clear Clear Urine Odor None None Voiding Methods Toilet Toilet Data Completed and Pending Labs on day of discharge: Labs from last 24 hours 11/22/22 11/22/22 11/22/22 08:32 08:32 08:32 WBC 6.36 RBC 4.49 Hgb 13.2 Hct 39.9 MCV 89 MCH 29.4 MCHC 33.1 RDW 13.0 Plt Count 231 MPV 8.2 Immature Gran % Neutrophils % Lymphocytes % Monocytes % Eosinophils % Basophils % Nucleated RBC % Absolute Neutrophils Absolute Lymphocytes Absolute Monocytes Absolute Eosinophils Absolute Basophils PT INR APTT Sodium 142 Potassium 3.8 Chloride 107 Carbon Dioxide 27.5 Anion Gap 7.5 BUN 14 Creatinine 0.8 Est GFR (CKD-EPI 2020) 77.27 Glucose 135 H Calcium 8.9 Magnesium 1.8 Total Bilirubin 0.4 AST 14 L ALT 21 Alkaline Phosphatase 84 Creatine Kinase Troponin I < 50 Total Protein 6.9 Albumin 3.4 TSH Free T4 Urine Color Urine Clarity Urine pH Ur Specific [place] Urine Protein Urine Ketones Urine Blood Urine Nitrite Urine Bilirubin Urine Urobilinogen Ur Leukocyte Esterase Urine RBC Urine WBC Ur Epithelial Cells Urine Crystals Urine Bacteria Urine Mucus Ur Culture Indicated? Urine Glucose 11/22/22 11/22/22 11/21/22 02:45 02:45 23:58 WBC RBC Hgb Hct MCV MCH MCHC RDW Plt Count MPV Immature Gran % Neutrophils % Lymphocytes % Monocytes % Eosinophils % Basophils % Nucleated RBC % Absolute Neutrophils Absolute Lymphocytes Absolute Monocytes Absolute Eosinophils Absolute Basophils PT INR APTT Sodium Potassium Chloride Carbon Dioxide Anion Gap BUN Creatinine Est GFR (CKD-EPI 2020) Glucose Calcium Magnesium Total Bilirubin AST ALT Alkaline Phosphatase Creatine Kinase Troponin I < 50 Total Protein Albumin TSH 5.71 H Free T4 0.89 Urine Color Yellow Urine Clarity Sl Cloudy Urine pH 6.5 Ur Specific [place] 1.010 Urine Protein Negative Urine Ketones Negative Urine Blood Trace-intact H Urine Nitrite Negative Urine Bilirubin Negative Urine Urobilinogen 0.2 Ur Leukocyte Esterase Moderate H Urine RBC 0-2 Urine WBC 3-5 Ur Epithelial Cells Few Urine Crystals Negative Urine Bacteria Few Urine Mucus Negative Ur Culture Indicated? Yes Urine Glucose Negative 11/21/22 11/21/22 11/21/22 23:50 23:50 23:50 WBC 9.11 RBC 4.81 Hgb 14.0 Hct 42.5 MCV 88 MCH 29.1 MCHC 32.9 RDW 13.1 Plt Count 286 MPV 8.5 Immature Gran % 0.4 Neutrophils % 63.1 Lymphocytes % 26.6 Monocytes % 8.2 Eosinophils % 1.4 Basophils % 0.3 Nucleated RBC % 0.0 Absolute Neutrophils 5.74 Absolute Lymphocytes 2.42 Absolute Monocytes 0.75 Absolute Eosinophils 0.13 Absolute Basophils 0.03 PT 9.5 INR 0.9 APTT 23.5 Sodium 141 Potassium 4.0 Chloride 105 Carbon Dioxide 27.0 Anion Gap 9.0 BUN 19 H Creatinine 1.0 Est GFR (CKD-EPI 2020) 59.12 Glucose 117 H Calcium 9.8 Magnesium 1.9 Total Bilirubin 0.3 AST 16 ALT 22 Alkaline Phosphatase 94 Creatine Kinase 172 Troponin I < 50 Total Protein 7.9 Albumin 4.0 TSH Free T4 Urine Color Urine Clarity Urine pH Ur Specific [place] Urine Protein Urine Ketones Urine Blood Urine Nitrite Urine Bilirubin Urine Urobilinogen Ur Leukocyte Esterase Urine RBC Urine WBC Ur Epithelial Cells Urine Crystals Urine Bacteria Urine Mucus Ur Culture Indicated? Urine Glucose 11/21/22 23:58 Urine - Reflex from Urine Culture - Pending Preliminary micro results at discharge 11/21/22 23:58 Urine Culture - Pending Urine - Reflex from [facility] All Active Problems (Updated 11/22/22 @ 06:59 by Godwin Fletcher) Bifascicular bundle branch block (Acute) Acute dehydration (Acute) UTI (urinary tract infection) (Acute) Vertigo (Chronic) Pre-syncope (Acute) Cubital tunnel syndrome on right (Acute) Posterior subcapsular age-related cataract of left eye (Acute) Hypothyroidism (Chronic) Graves disease (Acute) s/p orbitotomy Hyperlipidemia (Acute) Medical History Herniated disc s/p surgery L5-S1 Hx of retinal hemorrhage (L) currently being worked [place] [facility] per ptEdda Britton aware Low back pain potentially associated with radiculopathy Thyroid cyst Surgical History History of cataract surgery Hx of appendectomy Hx of hysterectomy Social History Smoking/Tobacco Use Status: Former Tobacco Use Quit Date: 07/22/07 Smoking risk assessment performed?: Yes Alcohol Intake: current Alcohol Intake frequency: a few times a week Alcohol type: wine Drug use: Never Substance use type: does not use Do you feel safe at home: Yes Do you feel safe in your relationship?: Yes Additional Social history: lives alone Time Spent with Patient Time Spent with Patient: 45-69 minutes Time was spent: preparing to see the patient(eg.review tests), ordering medications,tests, procedures, referring, communicating with other health healthcare management consultant, indepentently interpreting results, counseling the patient and care coordination
[2022-11-22] MEDS: Fosfomycin Tromethamine 3 GM PACKET PO (19:20)
[2022-11-23 14:47] LABS: Lab Add On Test DONE
[2022-11-23 16:04] LABS: Calculated LDL 183 mg/dL (<100); Cholesterol 265 mg/dL (<200); HDL Cholesterol 70 mg/dL (40-60); Triglyceride 63 mg/dL (<150)
--- NOTE | 2022-11-24 12:32 | IN_ITS ---
PT Notes Visit Reasons: Presyncope,UTI,Dehydration Physical Therapy Inpatient Discharge Summary Date: 11/22/2022 Date of service 11/22/2022 only This is a clinical summary of care provided for the duration of dates listed above. No charge was made in the completion of this documentation. Referring Doctor: Godwin Fletcher MD PT Orders: PT CONSULT: Fall safety assessment Precautions: Fall. Standard. Activity as tolerated. Patient Profile/Admitting Diagnosis:? Edith is a 72-year-old female who presented to the ED on 11/22/2022 with complaints of lightheadedness and sensation of her to pass out.? Patient is admitted to [facility] for management of presyncope, acute dehydration, UTI, vertigo, bifascicular bundle branch block, and hypothyroidism. PMHX: All Active Problems?(Updated 11/22/22 @ 06:59 by Godwin Fletcher) Bifascicular bundle branch block (Acute) Acute dehydration (Acute) UTI (urinary tract infection) (Acute) Vertigo (Chronic) Pre-syncope (Acute) Cubital tunnel syndrome on right (Acute) Posterior subcapsular age-related cataract of left eye (Acute) Hypothyroidism (Chronic) Graves disease (Acute) s/p orbitotomy Hyperlipidemia (Acute) Medical History? Herniated disc s/p surgery L5-S1 Hx of retinal hemorrhage (L) currently being worked on by [facility] per pt. [place] aware Low back pain potentially associated with radiculopathy Thyroid cyst Surgical History? History of cataract surgery Hx of appendectomy Hx of hysterectomy Social History/Home Situation: Lives alone in a private home with 3 steps to enter.? Has a flight of steps to the basement.? 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 Daughter and sister live close by and have been closely involved in the patient's affairs. Equipment Owned/DME: None Subjective: NT. See most recent WHITE LEAD FILTERER notes. Objective: General Observation: NT. See most recent WHITE LEAD FILTERER notes. Mental Status: NT. See most recent WHITE LEAD FILTERER notes. Pain: NT. See most recent WHITE LEAD FILTERER notes. Vital Signs: NT. See most recent WHITE LEAD FILTERER notes. ROM: Right Upper Extremity: ? Shoulder Flexion WFL. Shoulder abduction WFL. Elbow flexion WFL. Wrist flexion WFL. Functional opening and closing of hand WFL. Left Upper Extremity:? Shoulder Flexion WFL. Shoulder abduction WFL. Elbow flexion WFL. Wrist flexion WFL. Functional opening and closing of hand WFL. Right Lower Extremity: Hip flexion WFL. Hip abduction WFL. Knee flexion WFL. Ankle dorsiflexion WFL. Ankle plantarflexion WFL. Left Lower Extremity: Hip flexion WFL. Hip abduction WFL. Knee flexion WFL. Ankle dorsiflexion WFL. Ankle plantarflexion WFL. Strength: Right Upper Extremity: Shoulder flexors 4/5. Shoulder abductors 4/5. Elbow flexors 5/5. Elbow extensors 5/5. Radiation Protection Technician strong. Left Upper Extremity: Shoulder flexors 4/5. Shoulder abductors 4/5. Elbow flexors 5/5. Elbow extensors 5/5. Radiation Protection Technician strong. Right Lower Extremity: Hip flexors 4/5. Hip abductors 4/5. Knee flexors 5/5. Knee extensors 4/5. Ankle dorsiflexors 4/5. Ankle plantarflexors 4/5. Left Lower Extremity: Hip flexors 4/5. Hip abductors 4/5. Knee flexors 5/5. Knee extensors 4/5. Ankle dorsiflexors 4/5. Ankle plantarflexors 4/5. Bed Mobility/Transfers: Rolling independent Supine to sit? independent Sit to supine? independent Sit to stand? independent Stand to sit? independent Bed to toilet seat supervision Gait: Instructed patient with level surface ambulation of 300 feet requiring supervision assist. No SOB.? No LOB.? Gait pattern unremarkable.? Denies dizziness/lightheadedness through out activity. Balance: Static Sitting: Normal Dynamic Sitting: Normal Static Standing: Good Dynamic Standing: Good Special Tests: Mobility Limitations Standardized Measure [facility] 6 clicks Basic Mobility Inpatient Short Form: Raw Score: 23? CMS Score: 11% deficit? ? 30-second chair rise: 7x without use of B UE with report of fatigue in B quads that resolved? with rest 4-stage Balance test:? Able to tolerate feet together and semi-tandem stance for 10 seconds,? unable with full tandem and one-legged stance. Assessment: Edith is a 72-year-old female who presented to the ED on 11/22/2022 with complaints of lightheadedness and sensation of her to pass out.? Patient is admitted to [facility] for management of presyncope, acute dehydration, UTI, natalya tigo, bifascicular bundle branch block, and hypothyroidism.? Spoke with patient about possibility of getting an emergency alert device for home,? MITESH Leon consulted. Patient presents with clinical signs and symptoms consistent with current/admitting diagnoses that have resulted to mobility limitations, gait instability, generalized weakness, and overall ADL decline as demonstrated by the following impairment level findings: 1.? Decreased strength to B hip muscle groups 2.? Impaired standing balance 3.? Impaired activity tolerance Impairments are contributing to the following functional limitations: 1.? Difficulty with ambulation without assistive device 2.? Increased completion time for mobility ADL performance 3.? Increased risk for falls 4.? Difficulty with managing steps alone safely Goals: Goals X1 week 1. Bed-Chair independent with no AD NOT MET 2. Chair-Bed independent with no AD NOT MET 3. Independent gait on level surface with use of no AD/not holding onot IV pole for at least 300 feet without report of pain nor dyspnea NOT MET 4. Independent stair negotiation while holding onto B rails for at least 12 steps without report of pain nor dyspnea NOT MET 5. Independent with home exercise program NOT MET PLAN OF CARE/TREATMENT PLAN: 1-2x/day, 7 days/week x 1 week. Plan of care has been reviewed with the WHITE LEAD FILTERER providing the service under Physical Therapy direction. Provide HEP for standing exercises while holding onto firm surface for B LE strengthening. Progress ambulation without AD/IV pole for up to 300 feet. Train on deep breathing exercises to minimize fatigue. Train in stair negotiation. Monitor HR and oxygen during session. DISCHARGE RECOMMENDATIONS: [] ? Home with no services [] [X] ? Home with services.? Patient will benefit from home health PT services in order to progress mobility level using no ambulatory device, assess home safety, identify additional equipment needs, and establish a functional maintenance program that will increase ability of patient to remain at home. [] ? Home with outpatient PT [] [] ? SNF for continued rehabilitation [] [] ? Residential Care [] [] ? SNF versus LTC based on ability to participate and progress [] TREATMENT CODE/TIME: ND Thank you for the opportunity to participate in the care of this patient. Miranda Jimenez PT, DPT, CLT [facility] [place], [place]
== END 2022-11-22 19:39 | disposition home or self-care (01) ==
LOC: ER 11-22 01:45 → MS 11-22 02:24
PROVIDERS: Nurse Practitioner Family; Admitting Provider Family Medicine; Emergency Provider Emergency Medicine; PCP Nurse Practitioner Family; Visit Provider Family Medicine
DX: R55 Syncope and collapse (principal); E78.5 Hyperlipidemia, unspecified; Z86.73 Personal history of transient ischemic attack (TIA), and cerebral infarction without residual deficits; I45.2 Bifascicular block; G56.21 Lesion of ulnar nerve, right upper limb; E03.9 Hypothyroidism, unspecified; N39.0 Urinary tract infection, site not specified; E86.0 Dehydration; Z79.899 Other long term (current) drug therapy; R42 Dizziness and giddiness
CPT/HCPCS: 36415; 80053; 80061; 82550; 85027; 93005; 93306; 96361; 96365; 96372; 97161; 97530; 99285; J1650; 70450; 71045; 81003; 81015; 83735; 84439; 84443; 84484; 85025; 85610; 85730; 87086; 93010; 99223; 99239; G0378; J0696; J3490

== ENCOUNTER 2022-12-06 10:17 | Outpatient (CLI) | payer MEDICARE, OTHER, SELFPAY | END 2022-12-06 10:18 | disposition home or self-care (01) | PROVIDERS: PCP Nurse Practitioner Family; Visit Provider Nurse Practitioner Family | DX: I45.2 Bifascicular block (principal) | CPT/HCPCS: 93246 ==

== ENCOUNTER 2023-01-08 11:00 | Outpatient (CLI) | payer MEDICARE, OTHER, SELFPAY ==
--- NOTE | 2023-01-08 11:51 | W.CARDEVENT ---
Date of service: 01/08/23 Time of Service: 11:51 Cardiac Event Recorder Referring Provider:: Soni Alva Indications:: Syncope Cardiac Event Note: This is a 14-day cardiac event monitor ordered for syncope Rhythm throughout was sinus with an average heart rate of 88. Minimum was 51, maximum 138 There were rare ventricular ectopic beats. There were moderately frequent atrial premature beats which comprised 6% of total There were multiple brief self-limited atrial runs.( 134 in 14 days) The longest of these was 19 beats in duration There was no atrial fibrillation no high-grade AV block no pauses greater than 3 seconds Patient's symptoms were reported which had no correlation with any dysrhythmia
== END 2023-01-08 11:01 | disposition home or self-care (01) ==
LOC: CARDOPNVT 02-06 12:38
PROVIDERS: PCP Nurse Practitioner Family; Visit Provider Internal Medicine Cardiovascular Disease
DX: R55 Syncope and collapse (principal); I49.1 Atrial premature depolarization
CPT/HCPCS: 93248

== ENCOUNTER 2023-03-07 10:41 | Outpatient (REF) | payer MEDICARE, OTHER, SELFPAY ==
[2023-03-07 14:45] LABS: Calculated LDL 194 mg/dL (<100); Cholesterol 284 mg/dL (<200); HDL Cholesterol 74 mg/dL (40-60); TSH (W/Ref FT4) 1.56 uIU/mL (0.36-3.74); Triglyceride 83 mg/dL (<150)
== END 2023-03-07 10:42 | disposition home or self-care (01) ==
LOC: NCHCN 10:41
PROVIDERS: PCP Nurse Practitioner Family; Visit Provider Nurse Practitioner Family
DX: E78.5 Hyperlipidemia, unspecified (principal); E03.9 Hypothyroidism, unspecified; I49.1 Atrial premature depolarization
CPT/HCPCS: 80061; 84443

== ENCOUNTER → 2023-04-23 00:26 | Outpatient (CLI) | payer MEDICARE, OTHER, SELFPAY ==
--- NOTE | 2023-04-23 | DI.MRI_ITS ---
Exam(s) MR LOWER EXTREMITY LT WO CLINICAL HISTORY: BICEPS FEMORIS TENDINITIS,M76.899,SEVERE,WORSENING PAIN,? TEAR VS TENDINITI. TECHNIQUE: Multiplanar multisequence MRI was performed. CONTRAST MATERIAL: Noncontrast COMPARISON: None. FINDINGS: BONES/JOINTS: No fracture or contusion pattern. No suspicious bone lesions identified. Degenerative changes are noted at the patellofemoral joint in medial femoral tibial joint. No knee joint effusion . MUSCULOTENDINOUS STRUCTURES: No muscle edema. The distal tendons appear normal at the insertion on t he knee. The proximal tendons are not included in the field of view. SOFT TISSUES: No soft tissue edema or localized collection. IMPRESSION: No evidence of abnormality of the biceps muscle or distal tendon. DATA REPOSITORY:
== END ==
PROVIDERS: PCP Nurse Practitioner Family; Visit Provider Family Medicine
DX: M76.892 Other specified enthesopathies of left lower limb, excluding foot (principal)
CPT/HCPCS: 73718

== ENCOUNTER → 2023-07-04 01:19 | Outpatient (CLI) | payer MEDICARE, OTHER, SELFPAY ==
--- NOTE | 2023-07-04 | DI.RAD_ITS ---
Exam(s) XR HIP PELVIS ADULT BL EXAM: XR HIP PELVIS ADULT BL CLINICAL HISTORY: Low back pain, M54.50. TECHNIQUE: 2D digital imaging was performed. Three views. COMPARISON: CR RT HIP COMPLETE AP PELVIS from 12/23/2013 FINDINGS: BONES: No acute fracture is present. No bony destructive lesion is seen. JOINTS: Severe narrowing of both hip joint spaces with periarticular spurring. SI joints and pubic symphysis are unremarkable. SOFT TISSUE: Normal. IMPRESSION: Severe degenerative changes of both hips. DATA REPOSITORY: RADIATION DOSE DELIVERED:
== END ==
PROVIDERS: PCP Nurse Practitioner Family; Visit Provider Nurse Practitioner Family
DX: M16.0 Bilateral primary osteoarthritis of hip (principal)
CPT/HCPCS: 73521

== ENCOUNTER → 2023-09-02 09:34 | Outpatient (BNVA) | payer MEDICARE, OTHER, SELFPAY | PROVIDERS: PCP Nurse Practitioner Family; Referring Provider Nurse Practitioner Family; Visit Provider Student in an Organized Health Care Education/Training Program | DX: M16.11 Unilateral primary osteoarthritis, right hip (principal); M16.12 Unilateral primary osteoarthritis, left hip; M70.61 Trochanteric bursitis, right hip; M70.62 Trochanteric bursitis, left hip | CPT/HCPCS: 99213 ==

== ENCOUNTER → 2023-09-03 12:53 | Outpatient (BNVA) | payer MEDICARE, OTHER, SELFPAY | PROVIDERS: PCP Nurse Practitioner Family; Referring Provider Nurse Practitioner Family; Visit Provider Physician Assistant | DX: M16.11 Unilateral primary osteoarthritis, right hip (principal); M16.12 Unilateral primary osteoarthritis, left hip | CPT/HCPCS: 20611; J1040 ==

== ENCOUNTER 2024-01-10 21:10 | Outpatient (REF) | payer MEDICARE, OTHER, SELFPAY ==
[2024-01-10 21:55] LABS: Bacteria Few HPF (Negative); C & S Indicated? C&S Done As Ordered; Casts Negative LPF (Negative); Crystals Negative HPF (Negative); Epithelial Cells Few HPF (Negative); Mucus Negative (Negative)
== END 2024-01-10 21:11 | disposition home or self-care (01) ==
LOC: LBN 21:10
PROVIDERS: PCP Nurse Practitioner Family; Visit Provider Physician Assistant Medical
DX: R35.0 Frequency of micturition (principal); R82.998 Other abnormal findings in urine; B95.2 Enterococcus as the cause of diseases classified elsewhere
CPT/HCPCS: 87077; 81015; 87086; 87186

== ENCOUNTER → 2024-02-03 09:52 | Outpatient (BNVA) | payer MEDICARE, OTHER, SELFPAY | PROVIDERS: PCP Nurse Practitioner Family; Referring Provider Nurse Practitioner Family; Visit Provider Student in an Organized Health Care Education/Training Program | DX: M16.11 Unilateral primary osteoarthritis, right hip (principal); M16.12 Unilateral primary osteoarthritis, left hip; M70.61 Trochanteric bursitis, right hip; M70.62 Trochanteric bursitis, left hip | CPT/HCPCS: 99213 ==

== ENCOUNTER 2024-02-05 10:08 | Emergency (ER) | payer MEDICARE, OTHER, SELFPAY ==
[2024-02-05 10:11] VITALS: BP 173/82; PULSE 80; RESP 16; TEMP 36.6; O2SAT 96
[2024-02-05 10:21] VITALS: BP 173/82; PULSE 80; RESP 16; TEMP 36.6; O2SAT 96
--- NOTE | 2024-02-05 11:00 | ED.GENADUL_ITS ---
Discharge Plan Disposition Patient Disposition: Home Condition: Good Discharge Details Clinical Impression: Acute UTI, Hematuria, Proteinuria Primary Care Provider: Soni Alva ED Provider: Awilda Antoine Home Meds and New Rx's Prescriptions: New sulfamethoxazole-trimethoprim [Bactrim DS] 800-160 mg tablet 1 tab PO BID 3 Days Qty: 6 0RF Continued levothyroxine [Synthroid] 100 MCG tablet 100 mcg PO DAILY Qty: 1 gabapentin 300 mg capsule 300 mg PO BID Rx Instructions: 1 tab in AM, 2 tabs QHS Discharge Instructions Instructions: Urinary Tract Infection, Adult ED, Blood in Urine (Hematuria), Adult ED Additional Instructions: As we discussed, your labs are reassuring here today. Your kidney function is good and do not show any signs of anemia. However, I am concerned that you may have a recurrent urinary tract infection versus other cause of your acute cystitis or bladder inflammation. I will touch base with your primary care to ensure appropriate referrals have been sent. Please take the antibiotics as prescribed. Even if symptoms improve, please take the entire course. Please continue to encourage hydration. If you develop fever/chills, back pain or other new/worsening symptoms please seek care urgently once again. Please follow up with primary care in one week for reevaluation. Referrals: Soni Alva [Primary Care Provider] - [facility] General Date/Time Provider Initiated Documentation: 02/05/24 10:24 . Limitations to Documentation: no limitations . Information obtained by: patient, family (daughter), RN notes reviewed and old records reviewed . History of Present Illness 73 year old F presents to the emergency department with the chief complaint of UTI, hematuria, described as moderate and similar to prior episodes, Quality is described as burning, and is localized to the genitals. Patient reports no radiation. Patient started experiencing this day(s) and it has been intermittent. Medication improves symptom(s), (symtpoms improve with abx) No exacerbating factors reported . Patient notes no other symptoms.. Patient did receive the following treatments prior to arrival, none Related Data Home Medications ?Medication ?Instructions ?Recorded ?Confirmed levothyroxine 100 mcg tablet 100 mcg PO DAILY #1 tab-cap 12/25/13 02/05/24 (Synthroid) gabapentin 300 mg capsule 300 mg PO BID 09/02/23 02/05/24 sulfamethoxazole 800 1 tab PO BID 3 days #6 tabs 02/05/24 mg-trimethoprim 160 mg tablet (Bactrim DS) Previous Rx's ?Medication ?Instructions ?Recorded sulfamethoxazole 800 1 tab PO BID 3 days #6 tabs 02/05/24 mg-trimethoprim 160 mg tablet (Bactrim DS) Allergies Allergy/AdvReac Type Severity Reaction Status Date / Time ciprofloxacin Allergy Intermediate Headache Verified 02/05/24 10:14 atorvastatin Allergy Other (See Verified 02/05/24 10:14 Comment) seasonal Allergy Other (See Uncoded 02/05/24 10:14 Comment) General Stated Complaint: Urinary TIFFANY: 3 Review of Systems Constitutional Constitutional: Reports as per HPI, Denies chills, Denies fever(s) and Denies poor appetite Cardiovascular Cardiovascular: Denies chest pain Respiratory Respiratory: Denies cough Gastrointestinal Gastrointestinal: Denies abdominal pain, Denies change in bowel habits, Denies nausea and Denies vomiting Genitourinary Genitourinary: Reports as per HPI Musculoskeletal Musculoskeletal: Reports as per HPI and Denies back pain Integumentary/Breasts Skin/Breast: Reports as per HPI and Denies rash Exam Const General: cooperative, healthy appearing, comfortable, no acute distress, well developed and well groomed Nutritional Appearance: average body habitus and well nourished Orientation: alert and awake Resp Effort & Inspection: normal respiratory effort and no respiratory distress Auscultation: clear to auscultation bilaterally, no rales, no rhonchi and no wheezes Cardio Rate: regular rate Rhythm: regular rhythm Heart Sounds: S1 normal and S2 normal GI Inspection: normal to inspection Palpation: soft, no guarding, not rigid and nontender Back/Spine/Pelvis Back: no CVA tenderness Skin General skin exam: no rashes or lesions noted Trauma: no lacerations or abrasions Neuro General: patient alert and patient awake Cognition: normal cognition Speech: speech normal Gait: normal gait Course Vital Signs Vital signs: Vital Signs Temperature 36.6 C 02/05/24 10:11 Pulse 80 02/05/24 10:11 Respiratory Rate 16 02/05/24 10:11 Blood Pressure 173/82 H 02/05/24 10:11 Pulse Oximetry 96 02/05/24 10:11 Temperature 36.6 C 02/05/24 10:21 Temperature Source Skin 02/05/24 10:21 Pulse 80 07/17/24 10:21 Respiratory Rate 16 02/05/24 10:21 Respiratory Effort Normal, Non-Labored 02/05/24 10:21 Blood Pressure 173/82 H 02/05/24 10:21 Blood Pressure Position Sitting 02/05/24 10:21 Pulse Oximetry 96 02/05/24 10:21 Oxygen Delivery Method Room Air 02/05/24 10:21 Oxygen Flow Rate 0 02/05/24 10:21 Pain Level 2 02/05/24 10:21 Medical Decision Making Patient is a pleasant 73-year-old female presenting today with chief complaint recurrent UTI. Accompanied by her daughter. She reports that she first noticed UTI-like symptoms with dysuria, increased frequency and urgency about 1 month ago. Had relief when treated with antibiotics. Had antibiotics x 2, first in December with nitrofurantoin and then in January with Keflex. She reports that during this time she had decreased frequency of urination. However, states that over the past few days this has been increasing once again after stopping the antibiotic. Patient does not use any estrogen cream topically but states that she has been advised to do this in the past to help prevent UTIs. Has classically grown out E. coli but no sensitivities have been done per patient report, will get some of the notes from primary care provider. She denies any fevers or chills. Denies any flank pain. No systemic symptoms. Denies any nausea or vomiting. No vaginal discharge. She does report that she has had a history of a cystocele and has mesh implanted. On exam, patient appears nontoxic. She is hypertensive but does have history of hypertension in this range is not completely out of her realm of normal. Lungs are clear, normal cardiac exam, abdomen is benign, no CVA tenderness. Will obtain a urinalysis. Reviewed urinalysis. Patient has significant mount of protein which is new for her, even in the setting of blood with her UTIs historically. She does also have an increased amount of blood. She does have moderate leukocyte esterase. Negative nitrites. Only few bacteria. This has reflexed to culture. Will this certainly could be a recurrent urinary tract infection, the few bacteria and her lack of response has a concern for other etiology. Will also obtain kidney function, discussed this plan with the patient and daughter who are in agreement. Will also check CBC as she has been losing blood. CBC and CMP without significant abnormality. I discussed this findings with the patient and her daughter. I encourage hydration and supportive care. Will place her on Bactrim. Also spoke with the patient's primary care. Based on previous micro reports, she agrees with my concern as the previous antibiotic should have worked well for her pansensitive E. coli. They will assist with a referral to [place] [facility] [place] previously. Also advised that patient may need to undergo a cystoscopy if the bleeding persist. Patient has chronically elevated blood pressure and discuss this further with her primary care. Return precautions were discussed. All of her questions and concerns were addressed she is agreement this plan. Quality:SDOH Health Related Social Needs: No Data to Display PFSH All Active Problems (Updated 02/05/24 @ 12:37 by CSAPER Moreno) Proteinuria (Acute) Hematuria (Acute) Acute UTI (Acute) Greater trochanteric bursitis of both hips (Acute) Degenerative joint disease of right hip (Chronic) 80 mg Depo-Medrol injection: 09/03/2023 Degenerative joint disease of left hip (Chronic) 80 mg Depo-Medrol injection: 09/03/2023 Bifascicular bundle branch block (Acute) Vertigo (Chronic) Pre-syncope (Acute) Cubital tunnel syndrome on right (Acute) Posterior subcapsular age-related cataract of left eye (Acute) Hypothyroidism (Chronic) Graves disease (Acute) s/p orbitotomy Hyperlipidemia (Acute) Medical History Herniated disc s/p surgery L5-S1 Hx of retinal hemorrhage (L) currently being [place] [facility] [place] ptEdda Britton aware Low back pain potentially associated with radiculopathy Thyroid cyst Surgical History History of cataract surgery Hx of appendectomy Hx of hysterectomy Social History Smoking/Tobacco Use Status: Former Tobacco Use Quit Date: 07/22/07 Smoking risk assessment performed?: Yes Alcohol Intake: current Alcohol Intake frequency: a few times a week Alcohol type: wine Drug use: Never Substance use type: does not use Do you feel safe at home: Yes Do you feel safe in your relationship?: Yes Additional Social history: lives alone
[2024-02-05 11:07] LABS: Bilirubin Negative (Negative); Blood Large (Negative); Clarity Turbid (Clear); Glucose Negative (Negative); Ketones Negative (Negative); Leukocyte Esterase Moderate (Negative); Nitrite Negative (Negative); Specific Gravity 1.015 (1.005-1.025); Urobilinogen 0.2 mg/dL (Up to 0.2)
[2024-02-05 11:15] LABS: Bacteria Few HPF (Negative); C & S Indicated? Yes; Casts Negative LPF (Negative); Crystals Negative HPF (Negative); Epithelial Cells Few HPF (Negative); Mucus Moderate (Negative); RBC >50 HPF (0-2); WBC >50 HPF (0-5)
[2024-02-05 11:57] LABS: Abs Immature Grans 0.05 10^3/uL (0.0-0.06); Absolute Basophil Count 0.03 10^3/uL (0.0-0.2); Absolute Eosinophil Count 0.11 10^3/uL (0.0-0.7); Absolute Lymphocyte Count 2.15 10^3/uL (1.2-3.4); Absolute Monocyte Count 0.66 10^3/uL (0.1-0.8); Absolute Neutrophil Count 6.31 10^3/uL (1.2-6.7); Basophils % 0.3 %; Eosinophils % 1.2 %; HGB 13.9 g/dL (11.2-15.7); Immature Grans % 0.5 %; Lymphocytes % 23.1 %; MCH 28.9 pg (27.0-33.0); MCHC 32.3 % (32.0-36.0); MCV 89 fL (80-95); MPV 8.4 fL (8.0-11.0); Monocytes % 7.1 %; Neutrophils % 67.8 %; Platelet Count 289 10^3/uL (130-400); RBC 4.81 10^6/uL (3.93-5.22); RDW 13.1 % (11.7-14.6); WBC 9.31 10^3/uL (4.4-10.8)
[2024-02-05 12:15] LABS: ALT 26 U/L (14-59); AST 15 U/L (15-37); Albumin 3.7 g/dL (3.4-5.0); Alkaline Phosphatase 102 U/L (46-116); Anion Gap 3.4 mmol/L (3-11); BUN 12 mg/dL (7-18); CO2 31.6 mmol/L (21.0-32.0); CREATININE 0.7 mg/dL (0.55-1.02); Calcium 9.4 mg/dL (8.5-10.1); Chloride 103 mmol/L (98-107); Estimated GFR 90.14 (mL/min/1.73m2); Glucose 104 mg/dL (74-106); Potassium 4.5 mmol/L (3.5-5.1); Sodium 138 mmol/L (136-145); Total Protein 7.4 g/dL (6.4-8.2)
== END 2024-02-05 13:01 | disposition home or self-care (01) ==
PROVIDERS: Emergency Provider Physician Assistant; PCP Nurse Practitioner Family
DX: R35.0 Frequency of micturition (principal); N39.0 Urinary tract infection, site not specified; R80.9 Proteinuria, unspecified; R31.9 Hematuria, unspecified
CPT/HCPCS: 36415; 80053; 99283; 81003; 81015; 85025; 87086

== ENCOUNTER 2024-02-19 12:48 | Outpatient (REF) | payer MEDICARE, OTHER, SELFPAY ==
[2024-02-19 14:56] LABS: Bilirubin Negative (Negative); Blood Small (Negative); Clarity Clear (Clear); Glucose Negative (Negative); Ketones Trace mg/dL (Negative); Leukocyte Esterase Trace (Negative); Nitrite Negative (Negative); Urobilinogen 0.2 mg/dL (Up to 0.2)
[2024-02-19 15:02] LABS: Bacteria Rare HPF (Negative); C & S Indicated? C&S Done As Ordered; Casts 0-2 Hyaline LPF (Negative); Crystals Negative HPF (Negative); Epithelial Cells Few HPF (Negative); Mucus Negative (Negative); Other Cells Few Transitional (Negative)
== END 2024-02-19 12:49 | disposition home or self-care (01) ==
LOC: NCHCN 12:48
PROVIDERS: PCP Nurse Practitioner Family; Visit Provider Nurse Practitioner Family
DX: R82.998 Other abnormal findings in urine (principal); Z87.440 Personal history of urinary (tract) infections; Z87.448 Personal history of other diseases of urinary system
CPT/HCPCS: 81003; 81015; 87086

== ENCOUNTER → 2024-02-27 01:16 | Outpatient (CLI) | payer MEDICARE, OTHER, SELFPAY ==
[2024-02-27] MEDS: Omnipaque 350 MG/ML 100 ML BTL IJ (09:58)
--- NOTE | 2024-02-27 10:04 | DI.CT_ITS ---
Exam(s) CT ABDOMEN PELVIS WO/W EXAM: CT ABDOMEN PELVIS WO/W CLINICAL HISTORY: HX HEMATURIA, Z87.448. TECHNIQUE: Imaging Protocol: Axial computed tomography images with coronal and sagittal reformatted images were created and reviewed CONTRAST MATERIAL: Intravenous: Omnipaque-350 100cc Oral: None COMPARISON: CR,XR XR PORTABLE CHEST AP from 11/22/2022 FINDINGS: VISUALIZED LUNG BASES: No nodules nor pleural effusions evident. Partially visualized left breast im plant noted. ABDOMEN: There is no ascites. LIVER: There are no focal hepatic lesions evident. No dilated intrahepatic ducts. GALLBLADDER/BILIARY: No obvious gallbladder pathology. CBD is not dilated. PANCREAS: No evidence of pancreatic mass nor dilatation of the pancreatic duct. SPLEEN: Spleen is not enlarged. No obvious intrasplenic lesions. Splenic and portal veins are paten t. ADRENALS: There are no significant adrenal masses. KIDNEYS:There is a small benign cyst in the posterior cortex of the left kidney which measures 5 mm a nd does not require further workup. No other focal findings in the left kidney. No focal findings i n the right kidney. There no filling defects in the renal pelves and infundibuli. Solitary ureters noted bilaterally. Right ureter appears unremarkable. The solitary left ureter is not opacified be low the L4 level. There does not appear to be extrinsic compression of the ureter by a mass in the p jeancarlos. URINARY BLADDER: No masses nor intraluminal calculi. Appears unremarkable. ABDOMINAL AORTA: There is an infrarenal abdominal aortic aneurysm with abundant left side mural throm bus. Maximum diameter of the aneurysm is 4 cm. There is also fusiform focal aneurysmal dilatation o f the right common iliac artery exhibiting maximum diameter of 1.8 cm. Similar finding not seen on t he left side. LYMPH NODES:There is no retroperitoneal nor paraaortic adenopathy. ABDOMINAL WALL: No evidence of significant anterior abdominal wall nor inguinal hernia. GI: There is no evidence of bowel obstruction, free air, nor abscess. PELVIS: GI: No evidence of appendicitis.No evidence of sigmoid diverticulitis. LYMPH NODES: There is no intrapelvic nor inguinal adenopathy. REPRODUCTIVE: Uterus is surgically absent. There are no abnormal adnexal masses. URINARY BLADDER: No calculi nor obvious masses evident OSSEOUS: No fractures and no significant osseous lesions. There are advanced osteoarthritic degenerative changes in both hips. There are no lytic nor blastic osseous lesions. Multilevel facet arthropathy noted in the lumbar spine. There is degenerative ante rolisthesis L4 upon L5 due to facet arthropathy. Also milder anterolisthesis L5 upon S1 related to f acet arthropathy. There are no obvious pars defects none. IMPRESSION: 1. No significant focal findings in the kidneys and urinary bladder. 2. There is a solitary ureter on each side. The right ureter appears unremarkable. Left ureter is o nly opacified to the L4 level.. Consider retrograde study given the history of hematuria. 3. There is a long length fusiform infrarenal abdominal aortic aneurysm with maximum diameter 4 cm. 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 4. Other findings as above. RADIATION DOSE DELIVERED: Total DLP DATA REPOSITORY: All CT scans at this facility are submitted to the National Radiology Data Registry (NRDR) Dose Index Registry (DIR) with the [employer] (A[employer]). RADIATION OPTIMIZATION: All CT scans at this facility use at least one of these dose optimization te chniques: automated exposure control; mA and/or kV adjustment per patient size (includes targeted exa ms where dose is matched to clinical indication); or iterative reconstruction.
== END ==
PROVIDERS: PCP Nurse Practitioner Family; Visit Provider Nurse Practitioner Family
DX: Z87.448 Personal history of other diseases of urinary system (principal); I71.43 Infrarenal abdominal aortic aneurysm, without rupture; I72.3 Aneurysm of iliac artery
CPT/HCPCS: 72170; 74178; J3490

== ENCOUNTER 2024-02-27 15:27 | Outpatient (CLI) | payer MEDICARE, OTHER, SELFPAY ==
--- NOTE | 2024-02-27 14:20 | DI.RAD_ITS ---
Exam(s) XR PELVIS AP EXAM: XR PELVIS AP CLINICAL HISTORY: DJD L HIP. TECHNIQUE: 2D digital imaging was performed. Single AP view with template ball. COMPARISON: CR XR HIP PELVIS ADULT BL from 07/04/2023 FINDINGS: BONES: No acute fracture is present. No bony destructive lesion is seen. JOINTS: No dislocation present. There is severe narrowing of both hip joint spaces. There is spurrin g from the acetabula as well as femoral heads. The SI joints and pubic symphysis are unremarkable. SOFT TISSUE: Residual contrast in urinary bladder from prior CT scan. IMPRESSION: Severe degenerative changes of both hips. DATA REPOSITORY: RADIATION DOSE DELIVERED:
== END 2024-02-27 15:28 | disposition home or self-care (01) ==
LOC: DIORS 15:27
PROVIDERS: PCP Nurse Practitioner Family; Visit Provider Physician Assistant
DX: M16.12 Unilateral primary osteoarthritis, left hip (principal); Z01.818 Encounter for other preprocedural examination; M16.11 Unilateral primary osteoarthritis, right hip
CPT/HCPCS: 72170

== ENCOUNTER 2024-05-13 02:21 | Outpatient (CLI) | payer MEDICARE, OTHER, SELFPAY ==
--- NOTE | 2024-05-13 14:30 | DI.US_ITS ---
APPROVED REPORT EXAM: Comprehensive 2D, Doppler, and color-flow Echocardiogram Patient Location: Out-Patient Program Rep: Carol Harris RDCS (AE) Indications: Cardiac murmur Other Information Study Quality: Adequate Conclusion Normal left ventricular wall thickness and chamber size. Ejection fraction is 55%. Wall motion is n ormal Normal right ventricular size and function Both atria are normal in size Trileaflet aortic valve with trace regurgitation Mild mitral annular calcification. Trace to mild mitral regurgitation Normal estimated right ventricular systolic pressure 25 mmHg Mildly dilated aortic root and ascending aorta Wall motion Left Ventricle The left ventricle is normal size. The left ventricular systolic function is normal. The left ventric ular ejection fraction is within the normal range. There is normal left ventricular wall thickness. T here is normal LV segmental wall motion. There is no ventricular septal defect visualized. LVEF is 55 %. Right Ventricle The right ventricle is normal size. The right ventricular systolic function is normal. Atria The left atrium size is normal. The right atrium size is normal. The interatrial septum is intact wit h no evidence for an atrial septal defect. Aortic Valve The aortic valve is normal in structure. Aortic valve is trileaflet. There is no aortic valvular sten osis. Trace aortic regurgitation. Mitral Valve Mild mitral annular calcification. No evidence of mitral valve stenosis. Trace to mild mitral regurgi tation. Tricuspid Valve The tricuspid valve is normal in structure. There is no tricuspid valve stenosis. Mild tricuspid regu rgitation. The RVSP is 24.7 mmHg. Pulmonic Valve The pulmonary valve is normal in structure. There is no pulmonic valvular stenosis. Trace pulmonic re gurgitation. Great Vessels Aortic root is mildly dilated. The ascending aorta is mildly dilated. Aortic arch is normal in calib er. IVC is normal in size and collapses >50% with inspiration. Pericardium There is no pericardial effusion. 2D Dimensions IVSD d PLAX 1.03 cm F: 0.6-1.0 Ao Root d 3.72 cm F: 2.7 - 3.3 LVPW d PLAX 1.00 cm F: 0.6 - 1.0 Ao Asc Diam d 3.51 cm F: 2.3 - 3.1 LVID d PLAX 3.90 cm F: 3.8 - 5.2 LVDs 2.90 cm F: 2.2 - 3.5 LV EF Teichholz 51.8 % FS 26.07 % LV EDV (Teich) 64.9 mL LV ESV (Teich) 31.3 mL M-Mode TAPSE 1.99 cm (M/F) >1.7 Auto EF LV EDV A4C 93.1 mL LV EDV A2C 108.4 mL LV EDV BP 102.7 mL LV ESV A4C 46.3 mL LV ESV A2C 51.3 mL LV ESV BP 49.5 mL LVEF(%) A4C 50.3 % LVEF(%) A2C 52.7 % LVEF(%) BP 51.8 % LV SV A4C 46.8 ml LV SV A2C 57.1 ml LV SV BP 53.2 ml LV CO A4C 3.1 L/min LV CO A2C 3.4 L/min LV CO BP 3.3 L/min HR A4C 66.18 BPM HR A2C 59.69 BPM LV EDV Index (BP) LA Volume LA Length A4C 4.7 cm LA Length A2C 4.8 cm LA Area A4C s 15.49 cm2 LA Area A2C s 15.26 cm2 LA Vol A4C A-L 43.36 mL LA Vol A2C A-L 41.44 mL LA Vol Biplane A-L 42.7 mL LA Vol/BSA A4C A-L LA Vol/BSA A2C A-L LA Vol/BSA BP A-L 22.6 mL/m2 LA Vol A4C MOD 40.2 mL LA Vol A2C MOD 39.5 mL LA Vol BP MOD 39.9 mL RA Volume RA Area A4C 11.8 cm2 RA ESV A4C (A-L) 28.7mL RA Vol/BSA A4C A-L RA Length A4C 4.1 cm RA ESV A4C (MOD) 26.8mL LV Diastology MV E' medial 0.061 (>0.07 m/s) MV E Vmax 0.64 (0.4-1.3 m/s) MV E/E' MED 10.43 (<14) MV A Vmax 0.75 (0.4-1.3 m/s) MV E' lateral 0.097 (>0.1 m/s) E/A Ratio 0.9 MV E/E' LAT 6.56 (<14) MV E' Average 0.079 m/s MV E/E'(average) 8.05 Aortic Valve AoV Vmax 1.31 m/s LVOT Vmax 1.00 m/s AoV Peak Grad 43.0 mmHg LVOT Peak Grad 4.0 mmHg AoV Area (Vmax) 2.41 cm2 LVOT VTI 0.202 m AoV VTI 0.279 m LVOT Mean Grad 2.5 mmHg AoV Mean Neil. 0.95 m/s LVOT SV 63.90 mL AoV Mean Grad 4.1 mmHg LVOT Diam s 2.00 cm AoV Area (VTI) 2.29 cm2 AV Regurg Peak Gr. 6.87 mmHg Velocity Ratio 0.76 AR Decel [place] 1.3m/sec2 AR DT 3494 msec AR PHT 1013 msec AR Vmax 4.44 m/s Mitral Valve MV DT 347 (160-240 msec) MV Vmax TIPS 0.72 m/s MV Mean Grad 1.0 (<2mmHg) MV VTI 0.269 m Pulmonary Valve PV Vmax 0.74 (0.5-1.5 m/s) RVOT Vmax 0.57 m/s PV Peak Grad 2.2 mmHg RVOT Peak Gr. 1.3 mmHg PV Mean Neil 0.58 m/s RVOT VTI 0.129 m PV Mean Grad 1.4 mmHg RVOT Mean Gr. 0.7 mmHg Tricuspid Valve RA Pressure 3.00 mmHg TR Vmax 2.33 m/s TV S' 0.11 m/s TR Peak Grad 21.6 mmHg RVSP (TR) 24.7 mmHg
== END 2024-05-13 02:41 ==
LOC: DI 02:21
PROVIDERS: PCP Nurse Practitioner Family; Visit Provider Nurse Practitioner Family
DX: R01.1 Cardiac murmur, unspecified (principal)
CPT/HCPCS: 93306

== ENCOUNTER 2024-05-18 02:06 | Outpatient (CLI) | payer MEDICARE, OTHER, SELFPAY ==
[2024-05-18 11:00] LABS: HCT 43.3 % (36.0-46.0); HGB 13.9 g/dL (11.2-15.7); MCH 28.7 pg (27.0-33.0); MCHC 32.1 % (32.0-36.0); MCV 90 fL (80-95); MPV 8.3 fL (8.0-11.0); Platelet Count 273 10^3/uL (130-400); RBC 4.84 10^6/uL (3.93-5.22); RDW 13.1 % (11.7-14.6); RDW-SD 42.8 fL; WBC 7.41 10^3/uL (4.4-10.8)
[2024-05-18 11:10] LABS: Anion Gap 7.9 mmol/L (3-11); BUN 14 mg/dL (7-18); CO2 28.1 mmol/L (21.0-32.0); CREATININE 0.8 mg/dL (0.55-1.02); Calcium 9.4 mg/dL (8.5-10.1); Chloride 106 mmol/L (98-107); Estimated GFR 76.31 (mL/min/1.73m2); Glucose 100 mg/dL (74-106); Sodium 142 mmol/L (136-145)
[2024-05-18 11:24] LABS: TSH (W/Ref FT4) 14.99 uIU/mL (0.36-3.74)
[2024-05-18 11:54] LABS: FREE T4 0.91 ng/dL (0.76-1.46)
== END 2024-05-18 02:07 | disposition home or self-care (01) ==
LOC: LBO 02:06
PROVIDERS: PCP Nurse Practitioner Family; Visit Provider Student in an Organized Health Care Education/Training Program
DX: M16.11 Unilateral primary osteoarthritis, right hip (principal); M16.12 Unilateral primary osteoarthritis, left hip; Z01.818 Encounter for other preprocedural examination; E03.9 Hypothyroidism, unspecified
CPT/HCPCS: 36415; 80048; 85027; 86850; 86900; 86901; 84439; 84443

== ENCOUNTER 2024-08-10 03:18 | Outpatient (CLI) | payer MEDICARE, OTHER, SELFPAY ==
[2024-08-10 10:28] LABS: HCT 42.6 % (36.0-46.0); HGB 13.6 g/dL (11.2-15.7); MCH 28.8 pg (27.0-33.0); MCHC 31.9 % (32.0-36.0); MCV 90 fL (80-95); MPV 8.6 fL (8.0-11.0); Platelet Count 249 10^3/uL (130-400); RBC 4.72 10^6/uL (3.93-5.22); RDW-SD 43.3 fL; WBC 6.71 10^3/uL (4.4-10.8)
[2024-08-10 10:33] LABS: Anion Gap 4.1 mmol/L (3-11); BUN 13 mg/dL (7-18); CO2 30.9 mmol/L (21.0-32.0); CREATININE 0.8 mg/dL (0.55-1.02); Calcium 9.5 mg/dL (8.5-10.1); Chloride 105 mmol/L (98-107); Estimated GFR 76.31 (mL/min/1.73m2); Glucose 103 mg/dL (74-106); Potassium 4.2 mmol/L (3.5-5.1); Sodium 140 mmol/L (136-145)
== END 2024-08-10 03:19 | disposition home or self-care (01) ==
LOC: LBO 03:18
PROVIDERS: PCP Nurse Practitioner Family; Visit Provider Student in an Organized Health Care Education/Training Program
DX: M16.11 Unilateral primary osteoarthritis, right hip (principal); M16.12 Unilateral primary osteoarthritis, left hip; Z01.818 Encounter for other preprocedural examination
CPT/HCPCS: 36415; 80048; 85027; 86850; 86900; 86901

== ENCOUNTER 2024-08-26 05:59 | Day surgery (SDC) | payer MEDICARE, OTHER, SELFPAY ==
[2024-08-26] VITALS (20 sets, daily range): BP systolic 105–143; BP diastolic 54–90; PULSE 51–83; RESP 11–20; TEMP 35.9–36.5; O2SAT 95–100; BMI 26.2
[2024-08-26] MEDS: Acetaminophen 500 MG TAB 1000 MG PO ×2 (06:37→15:07)
[2024-08-26] MEDS: Celecoxib 200 MG CAP 400 MG PO (06:37)
--- NOTE | 2024-08-26 06:45 | DI.RAD_ITS ---
Exam(s) XR HIP LT IN OR EXAM: XR HIP LT IN OR CLINICAL HISTORY: Degenerative joint disease of left hip. TECHNIQUE: 2D and realtime digital imaging was performed. COMPARISON: No exams were available for comparison FINDINGS: Hard copy images show placement of a left hip prosthesis. The alignment appears satisfactory. Please see procedure note for details. Fluoro time: 28.2seconds RADIATION DOSE DELIVERED: Ka,r=2.97 mGy
[2024-08-26] MEDS: Lactated Ringers 1,000 ML 80 ML IV (07:00)
--- NOTE | 2024-08-26 07:09 | W.PM.DSUDISC ---
Date of service: 08/26/24 Discharge Plan Disposition Patient Disposition: Home Condition: Good Discharge Details Reason For Visit: B/L THR Attending Provider: Landon Teran Primary Care Provider: Soni Alva Home Meds and New Rx's Prescriptions: New celecoxib 200 mg capsule 200 mg PO BID Qty: 60 0RF aspirin 81 mg tablet,delayed release (DR/EC) 81 mg PO BID Qty: 60 0RF acetaminophen 500 mg tablet 1,000 mg PO TID Qty: 90 3RF pantoprazole 40 mg tablet,delayed release (DR/EC) 40 mg PO DAILY Qty: 30 0RF dexamethasone 4 mg tablet 4 mg PO DAILY Qty: 2 0RF oxycodone 5 mg tablet 5 mg PO Q4H MDD 6 tabs PRN (Reason: pain) Qty: 20 0RF Continued levothyroxine [Synthroid] 100 MCG tablet 100 mcg PO DAILY Qty: 1 gabapentin 300 mg capsule 300 mg PO BID Patient Comments: 1am, 1noon, 2HS per patient Rx Instructions: 1 tab in AM, 2 tabs QHS estradiol 0.01 % (0.1 mg/gram) cream VAGINAL Patient Comments: APPLY A PEA SIZED AMOUNT CHANCE-URETHRALLY TWICE DAILY FOR 2 WEEK; AND THEN TWICE PER WEEK Discharge Instructions Additional Instructions: Total Hip Discharge Instructions Activity: The most important activity is to walk. You should try to take short walks a few times a day. You have no restrictions on movement or positioning, but do not try to force what you do. You will find some stiffness and weakness with hip flexion (lifting your knee). Do not try to strengthen this too early, continue to practice walking and stairs and this will come. - Outpatient physical therapy can be helpful to help return you to a normal gait and improve your flexibility and strength. This can start around 2 weeks. For some patients, it?s not necessary. Usually this is determined at the time of discharge or at the first post-operative visit. - You should wear the KELLY hose on both legs for 2 weeks. Dressing: Keep the surgical dressing in place for at least one week. After the first week it may be removed and replace with light gauze and tape or nothing. It may get wet after 3 days but avoid soaking the dressing. If it gets wet, just lightly pat dry. It is important to always keep some gauze between skin folds, especially when you are sitting. Spend some time with the wound exposed when you are lying flat as the incision does wrinkle onto itself. Medications: - You should take Tylenol and an anti-inflammatory Celebrex as your primary pain control medications. If the Celebrex is too expensive or not covered, please call the office for another alternative (Advil/Ibuprofen or Naproxen/Aleve). - You have been prescribed a stronger pain medication Oxycodone for breakthrough pain, take as needed as prescribed. - You have also been prescribed a stomach acid reduction agent Pantoprozole to help reduce stomach acid and reflux. - You have also been prescribed Decadron to help with post-operative nausea and pain. You will take this for two days starting tomorrow. - You will be taking Aspirin 81mg twice a day for DVT prevention unless instructed otherwise. - If you have constipation you should take Colace or Miralax (both [id number]). It takes most people 3-4 days to have a bowel movement. Follow-up: 2 weeks If you have any acute concerns or questions, please do not hesitate to contact the office at [phone]. You may contact Dr. Teran with any questions after hours through the hospital at [phone] or on his cell phone at [phone]. Referrals: Landon Teran MD [ [facility] STAFF PHYSICIAN] - Equipment/Supplies: Walker Activity:: Activity as Tolerated Shower/Bathe:: 72 hours Diet:: As Tolerated Discharge Orders Discharge Orders: Discharge Order (Routine); Ordered 08/26/24 Ordered By: Sloan Archibald DS: Diagnosis Discharge Diagnosis (1) Degenerative joint disease of right hip: Status: Chronic (2) Degenerative joint disease of left hip: Status: Chronic
--- NOTE | 2024-08-26 07:15 | W.PREOPHP ---
Assessment and Plan Assessment and plan (1) Degenerative joint disease of right hip: Status: Chronic (2) Degenerative joint disease of left hip: Status: Chronic Assessment and plan: Edith is a 74-year-old female who has severe bilateral hip arthritis. She has failed nonoperative options and is here today for bilateral hip replacements. Her medical comorbidities, which precluded proceeding with surgery previously, are now improved. She has no active medical conditions. This point we may proceed with bilateral hip replacements. Once again reviewed technical details of the surgery. I discussed the necessary time for rehabilitation. Will plan for same-day discharge today. I also reviewed the risk of the procedure to include bleeding, infection, pain, stiffness, damage to nerves and vessels, damage to muscles and tendons, potential for bursitis and tendinitis, hardware loosening, leg length inequality, blood clot. Despite these risk, she elects to proceed. History of Present Illness Narrative: Edith is a 74-year-old female who has severe bilateral hip arthritis. She has been scheduled for hip replacement but fortunes had to cancel due to other medical issues. She had some recurrent UTIs with hematuria as well as incidentally found infrarenal aortic aneurysm. However, all this has gotten better. She has been cleared by vascular surgery. She is no longer having the urinary issues. However, she has daily pain about both hips. She denies any chest pain or shortness of breath. She is anxious to proceed with hip replacement. Review of Systems All systems reviewed & are unremarkable except as noted in HPI and below PFSH All Active Problems Greater trochanteric bursitis of both hips (Acute) Degenerative joint disease of right hip (Chronic) 80 mg Depo-Medrol injection: 09/03/2023 Degenerative joint disease of left hip (Chronic) 80 mg Depo-Medrol injection: 09/03/2023 Bifascicular bundle branch block (Acute) Vertigo (Chronic) Pre-syncope (Acute) Cubital tunnel syndrome on right (Acute) Posterior subcapsular age-related cataract of left eye (Acute) Hypothyroidism (Chronic) Graves disease (Acute) s/p orbitotomy Hyperlipidemia (Acute) Medical History AAA (abdominal aortic aneurysm) 4.0 cm 02/27/24. Last Vascular appt 08/24/23 Hx of retinal hemorrhage (L) currently being worked on by [facility] per pt. Tobi aware Herniated disc s/p surgery L5-S1 Low back pain potentially associated with radiculopathy Thyroid cyst Surgical History History of cataract surgery Hx of appendectomy Hx of hysterectomy Social History Smoking/Tobacco Use Status: Former Tobacco Use Quit Date: 07/22/07 Smoking risk assessment performed?: Yes Alcohol Intake: current Alcohol Intake frequency: a few times a week Alcohol type: wine Drug use: Never Substance use type: does not use Housing: house Do you feel safe at home: Yes Do you feel safe in your relationship?: Yes Additional Social history: lives alone Meds Allergies and Home Medications Allergies Allergy/AdvReac Type Severity Reaction Status Date / Time ciprofloxacin Allergy Intermediate Headache Verified 08/26/24 06:12 atorvastatin Allergy Other (See Verified 08/26/24 06:12 Comment) seasonal Allergy Other (See Uncoded 08/26/24 06:12 Comment) Home Medications ?Medication ?Instructions ?Recorded ?Confirmed ?Type levothyroxine 100 mcg tablet 100 mcg PO DAILY #1 tab-cap 12/25/13 08/26/24 History (Synthroid) gabapentin 300 mg capsule 300 mg PO BID 09/02/23 08/26/24 History acetaminophen 500 mg tablet 1,000 mg (2 x 500 mg) PO TID #90 08/26/24 Rx tabs aspirin 81 mg tablet,delayed 81 mg PO BID #60 tabs 08/26/24 Rx release celecoxib 200 mg capsule 200 mg PO BID #60 caps 08/26/24 Rx dexamethasone 4 mg tablet 4 mg PO DAILY #2 tabs 08/26/24 Rx estradiol 0.01% (0.1 mg/gram) vaginal 08/26/24 History vaginal cream oxycodone 5 mg tablet 5 mg PO Q4H PRN pain #20 tabs 08/26/24 Rx pantoprazole 40 mg tablet,delayed 40 mg PO DAILY #30 tabs 08/26/24 Rx release Exam Const General: cooperative, healthy appearing, comfortable and no acute distress Resp Effort & Inspection: normal respiratory effort Auscultation: clear to auscultation bilaterally Cardio Rate: regular rate Rhythm: regular rhythm Results Last Vital Signs Temp 36.4 C L 08/26/24 06:20 Pulse 83 08/26/24 06:20 Resp 16 08/26/24 06:20 BP 121/69 08/26/24 06:20 Pulse Ox 96 08/26/24 06:20
--- NOTE | 2024-08-26 07:31 | ANES.PREOP_ITS ---
General Info Date of Service Date Performed: 08/26/24 Height: 5 ft 7 in Weight: 76.1 kg Body Mass Index (BMI): 26.2 Surgical Procedure: Operation Date: 08/26/24 08:00 Proposed Procedure Side Surgeon p Hip Total Hip Anterior Bilateral Landon Teran MD Actual Procedure Side Surgeon p Hip Total Hip Anterior Bilateral Landon Teran MD Pre-Op Diagnosis Post-Op Diagnosis Degenerative joint disease of bilateral hips Meds Allergies and Home Medications Allergies Allergy/AdvReac Type Severity Reaction Status Date / Time ciprofloxacin Allergy Intermediate Headache Verified 08/26/24 06:12 atorvastatin Allergy Other (See Verified 08/26/24 06:12 Comment) seasonal Allergy Other (See Uncoded 08/26/24 06:12 Comment) Home Medication ?Medication ?Instructions ?Recorded levothyroxine 100 mcg tablet 100 mcg PO DAILY #1 tab-cap 12/25/13 (Synthroid) gabapentin 300 mg capsule 300 mg PO BID 09/02/23 acetaminophen 500 mg tablet 1,000 mg (2 x 500 mg) PO TID #90 08/26/24 tabs aspirin 81 mg tablet,delayed 81 mg PO BID #60 tabs 08/26/24 release celecoxib 200 mg capsule 200 mg PO BID #60 caps 08/26/24 dexamethasone 4 mg tablet 4 mg PO DAILY #2 tabs 08/26/24 estradiol 0.01% (0.1 mg/gram) vaginal 08/26/24 vaginal cream oxycodone 5 mg tablet 5 mg PO Q4H PRN pain #20 tabs 08/26/24 pantoprazole 40 mg tablet,delayed 40 mg PO DAILY #30 tabs 08/26/24 release Current Visit Medications: Current Medications Generic Name Dose Route Start Last Admin Trade Name Freq PRN Reason Stop Dose Admin Acetaminophen 1,000 mg 08/26/24 06:00 08/26/24 06:37 Acetaminophen 500 Mg Tab PO 08/26/24 23:59 1,000 mg PREOP ABHIJIT Administration Acetaminophen 1,000 mg 08/26/24 07:05 Acetaminophen 500 Mg Tab PO 09/25/24 07:04 TID PRN PRN Analgesia Celecoxib 400 mg 08/26/24 06:00 08/26/24 06:37 Celecoxib 200 Mg Cap PO 08/26/24 23:59 400 mg PREOP ABHIJIT Administration Docusate Sodium 100 mg 08/26/24 07:05 Docusate Sodium 100 Mg Cap PO 09/25/24 07:04 BID PRN PRN Constipation Ringer's Solution 1,000 mls @ 80 mls/hr 08/26/24 06:00 08/26/24 07:00 IV 08/26/24 23:59 80 mls/hr INFUSION ABHIJIT Administration Cefazolin Sodium/Dextrose 2 gm in 50 mls @ 100 mls/hr 08/26/24 06:00 Ancef Duplex IVPB 08/26/24 23:59 PREOP ABHIJIT Tranexamic Acid/Sodium Chloride 1,000 mg in 100 mls @ 600 mls/hr 08/26/24 06:00 IVPB 08/26/24 23:59 PREOP ABHIJIT Tranexamic Acid/Sodium Chloride 1,000 mg in 100 mls @ 600 mls/hr 08/26/24 06:00 IVPB 08/26/24 23:59 DIRECTED ABHIJIT IV Miscellaneous Supplies 1 each 08/26/24 06:00 Iv Access IV 08/26/24 23:59 DIRECTED ABHIJIT Ondansetron HCl 4 mg 08/26/24 07:05 Ondansetron 4 Mg/2 Ml Vial IVP 09/25/24 07:04 Q6H PRN PRN Nausea Oxycodone HCl 0 mg 08/26/24 07:05 Oxycodone 5 Mg Tab PO 09/25/24 07:04 Q3H PRN PRN Pain Polyethylene Glycol 17 gm 08/26/24 07:05 Polyethylene Glycol 3350 17 Gm Packet PO 09/25/24 07:04 BID PRN PRN Constipation Sodium Chloride 0 ml 08/26/24 06:00 Normal Saline Flush 10 Ml Syr IV 08/26/24 23:59 PRN PRN Sodium Chloride 0 ml 08/26/24 06:00 Normal Saline 10 Ml Vial IJ 08/26/24 23:59 DIRECTED PRN Sterile Water 0 ml 08/26/24 06:00 Water,Injection,Sterile 10 Ml Vial IJ 08/26/24 23:59 DIRECTED PRN PFSH Active Problems Active Problems: Problem Status Onset Code Greater trochanteric bursitis of both hips Acute M70.61, M70.62 Degenerative joint disease of right hip Chronic M16.11 Degenerative joint disease of left hip Chronic M16.12 Bifascicular bundle branch block Acute I45.2 Vertigo Chronic R42 Pre-syncope Acute R55 Cubital tunnel syndrome on right Acute G56.21 Posterior subcapsular age-related cataract of left eye Acute H25.042 Nuclear sclerotic cataract of left eye Resolved H25.12 Hypothyroidism Chronic E03.9 Graves disease Acute E05.00 Hyperlipidemia Acute E78.5 Nuclear sclerotic cataract of right eye Resolved H25.11 Medical History Medical History AAA (abdominal aortic aneurysm) 4.0 cm 02/27/24. Last Vascular appt 08/24/23 Hx of retinal hemorrhage (L) currently being worked on by [facility] per pt. Tobi aware Herniated disc s/p surgery L5-S1 Low back pain potentially associated with radiculopathy Thyroid cyst Surgical History Surgical History History of cataract surgery Hx of appendectomy Hx of hysterectomy Tobacco Smoking/Tobacco Use Status: Former Tobacco Use Alcohol Alcohol Intake: current Alcohol intake frequency: a few times a week Alcohol type: wine Substance Use Substance use: Never Substance use type: does not use Vital Signs and Lab Results Vital Signs Most Recent Vital Signs in EMR: Most Recent Vital Signs Temp Pulse Resp BP Pulse Ox 36.4 C L 83 16 121/69 96 08/26/24 06:20 08/26/24 06:20 08/26/24 06:20 08/26/24 06:20 08/26/24 06:20 Lab Results Blood Type / Crossmatch: 2 Antibody Screen NEGATIVE 08/10/24 Complete Blood Count: 2 White Blood Count 6.71 10^3/uL (4.4-10.8) 08/10/24 10:14 Red Blood Count 4.72 10^6/uL (3.93-5.22) 08/10/24 10:14 Hemoglobin 13.6 g/dL (11.2-15.7) 08/10/24 10:14 Hematocrit 42.6 % (36.0-46.0) 08/10/24 10:14 Platelet Count 249 10^3/uL (130-400) 08/10/24 10:14 Complete Metabolic Panel: 2 Sodium 140 mmol/L (136-145) 08/10/24 10:14 Potassium 4.2 mmol/L (3.5-5.1) 08/10/24 10:14 Chloride 105 mmol/L (98-107) 08/10/24 10:14 Carbon Dioxide 30.9 mmol/L (21.0-32.0) 08/10/24 10:14 BUN 13 mg/dL (7-18) 08/10/24 10:14 Creatinine 0.8 mg/dL (0.55-1.02) 08/10/24 10:14 Est GFR (CKD-EPI 2020) 76.31 (mL/min/1.73m2) 08/10/24 10:14 Calcium 9.5 mg/dL (8.5-10.1) 08/10/24 10:14 Glucose 103 mg/dL (74-106) 08/10/24 10:14 Liver Function Panel: 2 No Data to Display Coagulation Panel: 2 No Data to Display Cardiac Panel: 2 No Data to Display Arterial Blood Gas: 2 No Data to Display Venous Blood Gas: 2 No Data to Display Pancreas Panel: 2 No Data to Display Thyroid Panel: 2 No Data to Display Infectious Disease: 2 No Data to Display Blood Cultures: 2 No Data to Display Toxicology Panel: 2 No Data to Display Imaging and Studies Imaging and Studies Study information below may be from another EMR and interpreted by another provider. Please see original notes in EMR for more complete details. EKG Summary: EKG PATIENT NAME: Edith Rodriguez UNIT #: [id number] ORDERING PROVIDER: Cristhian Bridges M.D. PRIMARY CARE PROVIDER: GISELLA ALVA NP DATE/TIME OF SERVICE: 11/21/22 4722 : 1950 PERFORMING LOCATION: [place] APPROVED REPORT Exam: Resting ECG Reason for Exam: dizziness Patient Location: E HR:72 bpm ECG Measurements Heart Rate 72 AXIS RI 164 P 71 QRSd 148 QRS -72 QT 427 T63 QTc 458 Conclusion Sinus rhythm...normal P axis, V-rate 60- 99 Atrial premature complexes...SV complexes w/ short R-R intvls RBBB and LAFB...QRSd >120mS, axis(-40,240) - <Electronically signed by NAVEEN DOMINGUEZ MD in [facility]> E-Sign Date: 11/22/22 E-Sign Time: 0017 ADDENDUM APPROVED REPORT Exam: Resting ECG Reason for Exam: dizziness Patient Location: E HR:72 bpm ECG Measurements Heart Rate 72 AXIS RI 164 P 71 QRSd 148 QRS -72 QT 427 T63 QTc 458 Conclusion Sinus rhythm...normal P axis, V-rate 60- 99 Atrial premature complexes...SV complexes w/ short R-R intvls RBBB and LAFB...QRSd >120mS, axis(40,240) I have reviewed and I agree with the emergency room physician's ECG interpretation. Electronically signed by: <Electronically signed by Lizzy Smith M.D. in [place]> 11/22/22 0831 Cosigned by: Echocardiogram Summary: Patient Name: Edith Rodriguez Unit #: [id number] Loc: Ordering Provider: Gisella Alva Status: REG CLI Primary Care Provider: Gisella Alva Date of Exam: 05/13/24 Sex: F Admission Date: 05/13/24 : 1950 Age: 73 APPROVED REPORT EXAM: Comprehensive 2D, Doppler, and color-flow Echocardiogram Patient Location: Out-Patient Treatment Supervisor: Carol Harris RDCS (AE) Indications: Cardiac murmur Other Information Study Quality: Adequate Conclusion Normal left ventricular wall thickness and chamber size. Ejection fraction is 55%. Wall motion is normal Normal right ventricular size and function Both atria are normal in size Trileaflet aortic valve with trace regurgitation Mild mitral annular calcification. Trace to mild mitral regurgitation Normal estimated right ventricular systolic pressure 25 mmHg Mildly dilated aortic root and ascending aorta Wall motion Left Ventricle The left ventricle is normal size. The left ventricular systolic function is normal. The left ventricular ejection fraction is within the normal range. There is normal left ventricular wall thickness. There is normal LV segmental wall motion. There is no ventricular septal defect visualized. LVEF is 55%. Right Ventricle The right ventricle is normal size. The right ventricular systolic function is normal. Atria The left atrium size is normal. The right atrium size is normal. The interatrial septum is intact with no evidence for an atrial septal defect. Aortic Valve The aortic valve is normal in structure. Aortic valve is trileaflet. There is no aortic valvular stenosis. Trace aortic regurgitation. Mitral Valve Mild mitral annular calcification. No evidence of mitral valve stenosis. Trace to mild mitral regurgitation. Tricuspid Valve The tricuspid valve is normal in structure. There is no tricuspid valve stenosis. Mild tricuspid regurgitation. The RVSP is 24.7 mmHg. Pulmonic Valve The pulmonary valve is normal in structure. There is no pulmonic valvular stenosis. Trace pulmonic regurgitation. Great Vessels Aortic root is mildly dilated. The ascending aorta is mildly dilated. Aortic arch is normal in caliber. IVC is normal in size and collapses >50% with inspiration. Pericardium There is no pericardial effusion. 2D Dimensions IVSD d PLAX 1.03 cm F: 0.6-1.0Ao Root d 3.72 cm F: 2.7 - 3.3 LVPW d PLAX 1.00 cm F: 0.6 - 1.0Ao Asc Diam d 3.51 cm F: 2.3 - 3.1 LVID d PLAX 3.90 cm F: 3.8 - 5.2 LVDs 2.90 cm F: 2.2 - 3.5 LV EF Teichholz 51.8 % FS26.07 % LV EDV (Teich)64.9 mL LV ESV (Teich)31.3 mL M-Mode TAPSE 1.99 cm (M/F) >1.7 Auto EF LV EDV A4C93.1 mLLV EDV D7D240.4 mLLV EDV BP102.7 mL LV ESV A4C46.3 mLLV ESV A2C51.3 mLLV ESV BP49.5 mL LVEF(%) A4C50.3 %LVEF(%) A2C52.7 %LVEF(%) BP51.8 % LV SV A4C46.8 mlLV SV A2C57.1 mlLV SV BP53.2 ml LV CO A4C3.1 L/minLV CO A2C3.4 L/minLV CO BP3.3 L/min HR A4C66.18 BPMHR A2C59.69 BPMLV EDV Index (BP) LA Volume LA Length A4C4.7 cmLA Length A2C4.8 cm LA Area A4C s 15.49 cm2LA Area A2C s 15.26 cm2 LA Vol A4C A-L43.36 mLLA Vol A2C A-L41.44 mLLA Vol Biplane A-L42.7 mL LA Vol/BSA A4C A-LLA Vol/BSA A2C A-LLA Vol/BSA BP A-L 22.6 mL/m2 LA Vol A4C MOD40.2 mLLA Vol A2C MOD39.5 mLLA Vol BP MOD39.9 mL RA Volume RA Area A4C11.8 cm2RA ESV A4C (A-L)28.7mLRA Vol/BSA A4C A-L RA Length A4C4.1 cmRA ESV A4C (MOD)26.8mL LV Diastology MV E' medial0.061 (>0.07 m/s)MV E Vmax 0.64 (0.4-1.3 m/s) MV E/E' MED10.43 (<14)MV A Vmax 0.75 (0.4-1.3 m/s) MV E' lateral0.097 (>0.1 m/s)E/A Ratio 0.9 MV E/E' LAT6.56 (<14) MV E' Average0.079 m/s MV E/E'(average)8.05 Aortic Valve AoV Vmax1.31 m/sLVOT Vmax 1.00 m/s AoV Peak Grad43.0 mmHgLVOT Peak Grad 4.0 mmHg AoV Area (Vmax)2.41 lp2MHHN VTI0.202 m AoV VTI0.279 mLVOT Mean Grad 2.5 mmHg AoV Mean Neil.0.95 m/sLVOT SV 63.90 mL AoV Mean Grad4.1 mmHgLVOT Diam s 2.00 cm AoV Area (VTI)2.29 cm2AV Regurg Peak Gr.6.87 mmHg Velocity Ratio 0.76 AR Decel Slope1.3m/sec2 AR DT 3494 msec AR PHT 1013 msec AR Vmax 4.44 m/s Mitral Valve MV DT 347 (160-240 msec) MV Vmax TIPS 0.72 m/s MV Mean Grad 1.0 (<2mmHg) MV VTI 0.269 m Pulmonary Valve PV Vmax 0.74 (0.5-1.5 m/s)RVOT Vmax 0.57 m/s PV Peak Grad 2.2 mmHgRVOT Peak Gr.1.3 mmHg PV Mean Vel0.58 m/sRVOT VTI0.129 m PV Mean Grad 1.4 mmHgRVOT Mean Gr.0.7 mmHg Tricuspid Valve RA Pressure 3.00 mmHgTR Vmax 2.33 m/s TV S'0.11 m/sTR Peak Grad 21.6 mmHg RVSP (TR) 24.7 mmHg Ordered By: Gisella Alva CC: Dictated By: Lizzy Smith M.D. 05/14/24 1045 <Electronically signed by Lizzy Smith M.D. in [place]> 05/14/24 1139 Transcribed By: Lizzy Smith MD 05/14/24 104 This is privileged, confidential information intended only for the provider named. Any use or distribution by any person other than this provider is strictly prohibited. If you receive this report in error, please notify us immediately at [phone] and return the original report to us at the address above. Thank-you. Anesthesia Assessment and Plan Anesthesia History Personal History: No History of Anesthesia Complications Family History: No Family History of Anesthesia Complications Exercise Tolerance Exercise Tolerance: Metabolic Equivalents>4 Pertinent Negatives Pertinent Negatives: No Symptoms of GERD Cardiac & Pulmonary Exam Cardiac Exam: Normal S1/S2 Heart Sounds Pulmonary Exam: Clear Bilateral Breath Sounds Implantable Cardiac Device Does patient have a Pacemaker or an ICD?: No Airway Exam Known Difficult Airway: No Mallampati Class: 2 Mouth Opening: Normal (> 3cm) Thyromental Distance: Greater than 3 cm Neck Range of Motion: Full ROM Neck Circumference: Normal Teeth Condition: Normal Dentition Tooth Numberin 1. Missing tooth ASA Classification ASA Score: ASA 3 Emergency Case?: No NPO Status NPO Status: NPO Clears >2 hours, Solids >8 hours Anesthesia Plan Resuscitation Status: Full Code Anesthesia Technique: Spinal Anesthesia Airway Planned: Natural Airway Monitors Used: Standard Monitors
[2024-08-26] MEDS: ceFAZolin 2 GM/50 ML BAG IVPB (07:52)
[2024-08-26] MEDS: TRANEXAMIC ACID/SOD. CHL. 1,000 MG/100 ML BAG 600 MG IVPB ×2 (08:03→09:15)
--- NOTE | 2024-08-26 09:07 | W.PM.OP ---
Operative Note Operative Note PRE-OP DIAGNOSIS: Bilateral Hip Osteoarthritis POST-OP DIAGNOSIS: same PROCEDURE: Bilateral Anterior Total Hip Arthroplasty with Intraoperative Navigation SURGEON: Landon Teran CELL ASSEMBLY PINNER: Sloan Archibald ANESTHESIA TYPE: General LMA/ETT and Spinal Refer to Anesthesia Record ESTIMATED BLOOD LOSS: 100 PATHOLOGY: none sent COMPLICATIONS: Other (There was a fracture of the anterior cortex of the proximal femur on the right side during femoral head extraction. This checked out approximately 6 to 7 mm and did not propagate nor did it involve the medial calcar.) Patient was transported to: PACU Patient's condition: stable Implants: RIGHT: 1. Depuy [place] Acetabular Component, 58mm 2. Depuy Acetabular Liner, [id number] 3. Depuy Actis Standard Femoral Stem, Size 4 4. Depuy Altrx Ceramic Femoral Head, Size 36+5mm LEFT: 1. Depuy [place] Acetabular Component, 56mm 2. Depuy Acetabular Liner, [id number] 3. Depuy Actis Standard Collared Femoral Stem, Size 4 4. Depuy Altrx Ceramic Femoral Head, Size 36+5mm Indications: I have seen Edith in clinic for symptoms of hip arthritis, confirmed with radiographic findings. Edith has exhausted nonoperative methods and was having significant limitations in daily function and desired better function and less pain. I discussed the technical details of a hip replacement. I explained the risks of the procedure to include, but not limited to, bleeding, infection, pain, stiffness, fracture, damage to nerves and vessels, damage to muscles and tendons, loosening, instability, leg length inequality, need for repeat procedure, blood clot and cardiopulmonary demise. Despite these risks, she elected to proceed. Findings: There was significant signs of arthritis throughout both hips. Large osteophytes are present throughout both the acetabulum and the femoral heads bilaterally. Procedure Description: Edith was greeted in the preoperative holding area where the correct side was identified and marked. The consent was reviewed with the patient and signed. The history and physical was updated. All questions were answered. Edith was taken back to the operating room. A spinal anesthestic was then administered. The patient was placed into the supine position on the HANA table. Both feet were wrapped with [place] cotton wrap along with Coban. RIGHT Side The feet were placed in specialized boots for the HANA table, well seated within the boot and secured. SCDs were applied. The patient was then slid down onto a peroneal post. A preoperative AP hip was obtained to serve as a reference for determining leg lengths. Prophylactic antibiotics in the form of Cefazolin were administered. 1g of Tranxemic Acid was given intravenously within 30 minutes of incision. The right leg was then prepped with Chloraprep and draped in a standard fashion. A second prep with Chloraprep was performed prior to placement of a shower-curtain type drape with Iodine impregnated skin protection. A timeout to confirm correct identity, side and site, procedure, allergies, anesthesia, and medical concerns was performed. An obliquely oriented incision was made starting lateral to the ASIS and running distal over the Tensor Fascia Alysia (TFL) muscle belly toward the fibular head, approximately 10cm. The skin and soft tissue was dissected sharply, through Wenceslao?s fascia, and to the fascia of the TFL. During this there was some motion of the legs and thus deemed the spinal was not functioning adequately. She was thus converted to general anesthetic. Now, with the fascia and superior border of the IT band identified, the fascia was incised with a new knife just above any perforators from the IT band. The TFL muscle belly was bluntly dissected away from the fascia and moved laterally. The fat between TFL and rectus was identified to ensure the dissection was not within the TFL. Blunt dissection created space between abductors and the capsule and retractor was placed over the lateral femoral neck. The fibers of the rectus femoris tendon were identified and these were freed from the anterior capsule. A second cobra retractor was placed around the medial femoral neck. The TFL was further retracted laterally to show the deep fascia. Careful dissection through this layer identified three main crossing vessels of the lateral femoral circumflex. These were cauterized in multiple locations and then cut without any noticeable bleeding. The TFL was further released bluntly from the deep fascia to expose anterior hip capsule and fat The [place] orthopaedic retractor was then placed beneath the TFL and against sartorius and medial soft tissues to protect and retract the soft tissues. A T-capsulotomy was then performed starting at the superior lateral acetabulum and moving distally to the intertrochanteric ridge. These capsular flaps were tagged with a No. 1 Ethibond and elevated from within. The capsular flaps were released to the shoulder of the lateral neck and to the lesser trochanter to give excellent visualization of the proximal femur. A neck osteotomy was performed using an oscillating saw based on preoperative templates. This cut started in the shoulder and of the lateral neck and exited medially. The saw was at all times directed medially to avoid injury to the greater trochanter. Gentle traction was applied to the leg and the osteotomy opened. The femoral head was removed with a corkscrew, making sure to protect the TFL on its exit. This was measured on the back table to determing the starting reamer size. It appeared that during extraction of the femoral head a portion of the anterior cortex of the femur broke. There is a V-shaped crack about the anterior portion, not extending to the medial calcar. It propagated approximately 6 to 7 mm distally and ended proximal to the intertrochanteric ridge. It was deemed to be stable and was left intact. Then, an anterior retractor was placed over the anterior wall between capsule and labrum and attached to the Gripper retraction system. A posterior retractor was placed similarly. This provided excellent visualization. The contents of the cotyloid fossa were removed with electrocautery and the labrum was removed with a knife. There was a notable floor osteophyte. There was significant chondromalacia of the superior acetabulum. Acetabular reaming began with a 52mm reamer. This first reaming was directed anterior to posterior and medial to get down to the true floor. This was inspected and reamed until the true floor was reached. The anterior retractor was then released and entry and exit was provided by traction on the capsular flaps. I then reamed sequentially up to a 58mm reamer where good fit was obtained. The larger reamers were oriented based on anatomical reference of the anterior and lateral montoya to ensure proper abduction and anteversion. Positioning and size was confirmed with the fluoroscopy. A 58mm Depuy [place] acetabular component was selected. The acetabulum was reamed around the periphery with the selected acetabular size to prevent a rim fit. The deep tissues were irrigated. The acetabular component was then impacted in a position of about 40-45 degrees of abduction and 15-20 degrees of anteversion, using the patient?s anatomy as the ultimate landmark. Fluoroscopy was used to confirm this. There was excellent cosmetology professor of the acetabular component and the inserting handle was removed. The acetabular liner, Depuy [id number] polyethylene liner, was inserted and lined up with the tines of the acetabular component. There was no soft tissue interposition. The liner was then impacted into position and confirmed to be well-seated. A portion of the bonnie-articular cocktail was then injected around the acetabulum into the capsule and periosteum. This cocktail consisted of 123mg of Ropivacaine, 0.25mg of Epinephrine, 0.04mg of Clonidine, and 15mg of Ketorolac, diluted to 50cc. Traction was released from the femur. The leg was rotated to 120 degrees. Any remaining medial capsule was released until the lesser trochanter was easily palpable. A Savage retractor was placed medially. The lateral capsule was further released into the shoulder to allow access to the greater trochanter. A Savage retractor was placed over the greater trochanter which allowed the trochanter to flip in front of the capsule for excellent exposure. The leg was brought down into maximal extension and 20 degrees of adduction while ensuring there was no impingement on the acetabulum. Any remnant capsule within the trochanter was released. Piriformis and obturator externis were identified and protected. There was excellent access to the proximal femur. The lateral neck remnant was removed with a rongeur. A blunt canal probe was used to identify the canal and trajectory for later broaching. A box osteotome initiated the broach course. A small curved rasp and a curved curette were used to work laterally. Broaching then began with a starter Actis broach. This was inserted manually around the trochanter and into the canal before mallet blows. The broach was seated to a few millimeters below the cut level based on the neck cut and the preoperative template. Sequential broaching was continued until a tight fit was obtained with good rotational control of the femur. A trial standard neck was inserted along with a +5 trial head. The leg was brought out of extension and adduction and then reduced with traction and internal rotation. The leg was stable anteriorly in a position of 30 degrees of extension and 90 degrees of external rotation. Fluoroscopy was used to ensure there was no fracture and the stem was seated well. Leg lengths were checked with an AP pelvis and pelvic reference points. [employer] navigation system was used to confirm appropriate positioning and leg length and offset. Once content with the desired offset and leg lengths, the leg was brought back into extension, external rotation and adduction. The periosteum and surrounding tissue was injected with remaining portion of the bonnie-articular cocktail. The proximal femur was irrigated as well as the deep tissues. The Depuy Actis standard offset stem, size 4, was then manually inserted into the proximal femur making sure to control rotation. It was then malleted into position with light blows, giving breaks to allow bone expansion and decrease risk of fracture. The selected Depuy Altrx Ceramic Head, size 36+5mm, was then placed onto the clean and dry trunnion and secured with impaction onto the tapered fit. The leg was brought back out of extension and adduction and reduced with traction and internal rotation. Stability was confirmed with no shuck at 90 degrees of external rotation and 30 degrees of extension. No impingement through range of motion arc. Final x-ray images were obtained with fluoroscopy to confirm adequate positioning. The deep tissues were thoroughly irrigated with Irrisept chlorhexadine solution. The capsule was then reapproximated with the previously placed Ethibond sutures. The TFL fascia was finally closed with a No. 2 Stratafix, barbed suture. Deep tissues were then reapproximated with 0 Vicryl and a running 2-0 Vicryl. The skin was closed with a running 4-0 Monocryl in a subcuticular fashion. This was reinforced with skin glue. A Mepilex silver dressing was applied. LEFT Side Keeping the back table sterile, the drapes were removed, light handles changed, and fluoroscopy switched rooms sides. Once again, a AP hip was obtained to serve as a reference for determining leg lengths. The left leg was then prepped with Chloraprep and draped in a standard fashion. A second prep with Chloraprep was performed prior to placement of a shower-curtain type drape with Iodine impregnated skin protection. A timeout was once again performed to ensure that there were no issues to proceed. The second dose of TXA 1g was administered intravenously. An obliquely oriented incision was made starting lateral to the ASIS and running distal over the Tensor Fascia Alysia (TFL) muscle belly toward the fibular head, approximately 10cm. The skin and soft tissue was dissected sharply, through Wenceslao?s fascia, and to the fascia of the TFL. With the fascia and superior border of the IT band identified, the fascia was incised with a new knife just above any perforators from the IT band. The TFL muscle belly was bluntly dissected away from the fascia and moved laterally. The fat between TFL and rectus was identified to ensure the dissection was not within the TFL. Blunt dissection created space between abductors and the capsule and retractor was placed over the lateral femoral neck. The fibers of the rectus femoris tendon were identified and these were freed from the anterior capsule. A second cobra retractor was placed around the medial femoral neck. The TFL was further retracted laterally to show the deep fascia. Careful dissection through this layer identified three main crossing vessels of the lateral femoral circumflex. These were cauterized in multiple locations and then cut without any noticeable bleeding. The TFL was further released bluntly from the deep fascia to expose anterior hip capsule and fat The soft tissue orthopaedic retractor was then placed beneath the TFL and against sartorius and medial soft tissues to protect and retract the soft tissues. A T-capsulotomy was then performed starting at the superior lateral acetabulum and moving distally to the intertrochanteric ridge. These capsular flaps were tagged with a No. 1 Ethibond and elevated from within. The capsular flaps were released to the shoulder of the lateral neck and to the lesser trochanter to give excellent visualization of the proximal femur. A neck osteotomy was performed using an oscillating saw based on preoperative templates. This cut started in the shoulder and of the lateral neck and exited medially. The saw was at all times directed medially to avoid injury to the greater trochanter. Gentle traction was applied to the leg and the osteotomy opened. The femoral head was removed with a corkscrew, making sure to protect the TFL on its exit. This was measured on the back table to determing the starting reamer size. Portions of the rectus obscuring visualization were minimally elevated off the superior acetabulum. An anterior retractor was placed over the anterior wall between capsule and labrum and attached to the Gripper retraction system. A posterior retractor was placed similarly. This provided excellent visualization. The contents of the cotyloid fossa were removed with electrocautery and the labrum was removed with a knife. There was a notable floor osteophyte. There was significant chondromalacia of the superior acetabulum. Acetabular reaming began with a 51mm reamer. This first reaming was directed anterior to posterior and medial to get down to the true floor. This was inspected and reamed until the true floor was reached. The anterior retractor was then released and entry and exit was provided by traction on the capsular flaps. I then reamed sequentially up to a 56mm reamer where good fit was obtained. The larger reamers were oriented based on anatomical reference of the anterior and lateral montoya to ensure proper abduction and anteversion. Positioning and size was confirmed with the fluoroscopy. A 56mm Depuy [place] acetabular component was selected. The acetabulum was reamed around the periphery with the selected acetabular size to prevent a rim fit. The deep tissues were irrigated. The acetabular component was then impacted in a position of about 40-45 degrees of abduction and 15-20 degrees of anteversion, using the patient?s anatomy as the ultimate landmark. Fluoroscopy was used to confirm this. There was excellent cosmetology professor of the acetabular component and the inserting handle was removed. The acetabular liner, Depuy [id number] polyethylene liner, was inserted and lined up with the tines of the acetabular component. There was no soft tissue interposition. The liner was then impacted into position and confirmed to be well-seated. A portion of the bonnie-articular cocktail was then injected around the acetabulum into the capsule and periosteum. This cocktail consisted of 123mg of Ropivacaine, 0.25mg of Epinephrine, 0.04mg of Clonidine, and 15mg of Ketorolac, diluted to 50cc. Traction was released from the femur. The leg was rotated to 120 degrees. Any remaining medial capsule was released until the lesser trochanter was easily palpable. A Savage retractor was placed medially. The lateral capsule was further released into the shoulder to allow access to the greater trochanter. A Savage retractor was placed over the greater trochanter which allowed the trochanter to flip in front of the capsule for excellent exposure. The leg was brought down into maximal extension and 20 degrees of adduction while ensuring there was no impingement on the acetabulum. Any remnant capsule within the trochanter was released. Piriformis and obturator externis were identified and protected. There was excellent access to the proximal femur. The lateral neck remnant was removed with a rongeur. A blunt canal probe was used to identify the canal and trajectory for later broaching. A box osteotome initiated the broach course. A small curved rasp and a curved curette were used to work laterally. Broaching then began with a starter Actis broach. This was inserted manually around the trochanter and into the canal before mallet blows. The broach was seated to a few millimeters below the cut level based on the neck cut and the preoperative template. Sequential broaching was continued until a tight fit was obtained with good rotational control of the femur. A trial standard neck was inserted along with a +5 trial head. The leg was brought out of extension and adduction and then reduced with traction and internal rotation. The leg was stable anteriorly in a position of 30 degrees of extension and 90 degrees of external rotation. Fluoroscopy was used to ensure there was no fracture and the stem was seated well. Leg lengths were checked with an AP pelvis and pelvic reference points. [employer] navigation system was used to confirm appropriate positioning and leg length and offset. Once content with the desired offset and leg lengths, the leg was brought back into extension, external rotation and adduction. The periosteum and surrounding tissue was injected with remaining portion of the bonnie-articular cocktail. The proximal femur was irrigated as well as the deep tissues. The Depuy Actis standard stem, size 4, was then manually inserted into the proximal femur making sure to control rotation. It was then malleted into position with light blows, giving breaks to allow bone expansion and decrease risk of fracture. The selected Depuy Altrx Ceramic Head, size 36+5mm, was then placed onto the clean and dry trunnion and secured with impaction onto the tapered fit. The leg was brought back out of extension and adduction and reduced with traction and internal rotation. Stability was confirmed with no shuck at 90 degrees of external rotation and 30 degrees of extension. No impingement through range of motion arc. Final x-ray images were obtained with fluoroscopy to confirm adequate positioning and no intraoperative fracture. The deep tissues were thoroughly irrigated with Irrisept chlorhexadine solution. The capsule was then reapproximated with the previously placed Ethibond sutures. The TFL fascia was finally closed with a No. 2 Stratafix, barbed suture. Deep tissues were then reapproximated with 0 Vicryl and a running 2-0 Vicryl. The skin was closed with a running 4-0 Monocryl in a subcuticular fashion. This was reinforced with skin glue. A Mepilex silver dressing was applied. At the end of the case, all counts were correct. Edith was transferred to the hospital bed without difficulty and suffering the above-mentioned fracture of the anterior cortex of the proximal femur which was stable and needed no other treatment. Edith has a good prognosis. Physical therapy will start today and without restrictions, weight-bearing as tolerated. Aspirin 81mg BID will be used for DVT prophylaxis. Date of Procedure: 08/26/24
--- NOTE | 2024-08-26 09:12 | DI.RAD_ITS ---
Exam(s) XR HIP RT IN OR EXAM: XR HIP RT IN OR CLINICAL HISTORY: Degenerative joint disease of right hip. TECHNIQUE: 2D and realtime digital imaging was performed. COMPARISON: No exams were available for comparison FINDINGS: Hard copy images show placement of a right hip prosthesis. The alignment appears satisfactory. Please see procedure note for details. Fluoro time: 39seconds RADIATION DOSE DELIVERED: Ka,r=5.54 mGy
[2024-08-26] MEDS: oxyCODONE 5 MG TAB PO (11:44)
--- NOTE | 2024-08-26 13:37 | W.ANESPOSTOP ---
Postoperative Evaluation Date, Time and Location Date Performed: 08/26/24 Time Performed: 13:37 Patient Location: Day Surgery Unit Vital Signs Most Recent Imported Vital Signs: Most Recent Vital Signs Temp Pulse Resp BP Pulse Ox 36.3 C L 51 L 16 105/54 L 100 08/26/24 12:54 08/26/24 12:54 08/26/24 12:54 08/26/24 12:54 08/26/24 12:54 Pain Score Most Recent Pain Score: Most Recent Pain Score Pain Level 4 08/26/24 12:54 Assessment Mental Status: Awake (Alert & Oriented to Patient Baseline) Airway and Respiratory Function: Patent airway with normal (patient baseline) respiratory exam Cardiovascular Function: Hemodynamically Stable Hydration Status: Adequately Hydrated Nausea & Vomiting: No Nausea or Vomiting Pain: Pain is tolerable per patient Peripheral Nerve Block: Patient did not receive a nerve block
--- NOTE | 2024-08-26 15:10 | PT.INIE ---
PT Notes Visit Reasons: B/L THR Physical Therapy Day Surgery Initial Evaluation Date: 08/26/2024 Referring Doctor:Sloan Archibald/ Dr Teran PT Orders: PT CONSULT: s/p ortho surgery Precautions: WBAT BLE, TEDs Patient Profile/Admitting Diagnosis: Pt is 74yo female presenting s/p elective B SUNNY under general anesthesia. R hip complicated by small femoral fracture per surgical report. PMHX: Greater trochanteric bursitis of both hips (Acute) Degenerative joint disease of right hip (Chronic) 80 mg Depo-Medrol injection: 4Degenerative joint disease of left hip (Chronic) 80 mg Depo-Medrol injection: 4Bifascicular bundle branch block (Acute) Vertigo (Chronic) Pre-syncope (Acute) Cubital tunnel syndrome on right (Acute) Posterior subcapsular age-related cataract of left eye (Acute) Hypothyroidism (Chronic) Graves disease (Acute) s/p orbitotomyHyperlipidemia (Acute) Medical History AAA (abdominal aortic aneurysm) 4.0 cm 02/27/24. Last Vascular appt 24Hx of retinal hemorrhage (L) [place] [facility] [place] awareHerniated disc s/p surgery L5-S1Low back pain potentially associated with radiculopathy Thyroid cyst Surgical History History of cataract surgery Hx of appendectomy Hx of hysterectomy Social History/Home Situation: Pt resides in single family home with no steps to enter through her garage. Her daughter lives next door . Pt is independent without AD for ambulation, independent ADLs, cooking, home management. Pt is active managing tasks within her barn. She also makes handmade soaps out of her home. She reports she has grab bars near her toilet and in tub/shower. Equipment Owned/DME: grab bar .; Pt fitted for FWW issued by [facility] Subjective: Pt initially reporting she can't move her legs however with tactile cues she was able to move . Objective: General Observation: female presented semireclined on stretcher with ice to B hips and multiple blankets. Pt's dtr is present. Pt apprehensive about moving and walking Mental Status: Alert and Oriented x 4, cooperative but hesitant, easily distracted and tangential Pain: B hips 3/10 with movement ROM: [] Right Upper Extremity: WNL Left Upper Extremity: WNL Right Lower Extremity: hip flexion degrees, hip abduction degrees, knee flexion degrees, ankle DF Left Lower Extremity:hip flexion degrees, hip abduction degrees, knee flexion degrees, ankle DF Strength: [] Right Upper Extremity: 5/5 Left Upper Extremity: 5/5 Right Lower Extremity: Hip flexion: 2+ /5; hip abduction: 2+ /5; hip extension: 3- /5; knee extension: 3 /5; knee flexion:3- /5 ankle DF: 3+/5 ; ankle PF: 3+/5 Left Lower Extremity: Hip flexion: 2+ /5; hip abduction:2+ /5; hip extension: 3- /5; knee extension: 3 /5; knee flexion: 3- /5 ankle DF: 3+ /5 ; ankle PF: 3+/5 Sensation: intact Bed Mobility/Transfers: Supine to sit min A and increased time. Sit to stand SBA cues for hand placement Stand to sit SBA cues for handplacement Bed to chair SBA and cues for safe approach Gait: pt ambulates with FWW 50 feet with CGA and increased time initially step to pattern then progressed to reciprocal. Pt required intermittent cues to decrease WB through BUE to reduce fatigue sensation in UE. Pt with narrow ADÁN and slight forward flexed trunk which she was able to correct with cues Balance: [] Static Sitting: Normal Dynamic Sitting: Good Static Standing: Good Dynamic Standing: Fair + Special Tests: [] Mobility Limitations Standardized Measure [] [facility] AM-PAC 6 clicks Basic Mobility Inpatient Short Form: [] Raw Score:19 CMS Score: 41.77% Treatment:34662 Informed Consent/Education: Patient instructed in purpose of PT consult. Packet containing SUNNY exercise protocol has been given to patient. Education and training on initial set of exercises that can be done at home have been completed with patient. Pt and daughter educated and able to provide cues for safe hand placement and assisting pt with getting in out of bed . Assessment: Patient is a 74 yo eclectic easily distracted female who presents with clinical signs and symptoms consistent with current/admitting diagnoses that have resulted to mobility limitations, gait instability, generalized weakness, and impairment of motor control as demonstrated by the following impairment level findings: 1. Decreased strength to B hip major muscle groups 2. Impaired standing balance 3. Limitation of joint range of motion in B hips 4. impaired functional activity tolerance 5. Pain B hips Impairments are contributing to the following functional limitations: 1. Inability to safely ambulate without assistive device 2. Increase completion time for mobility ADL performance 3. Increased fall risk 4. decline in bed mobility skills Patient is assessed as a moderate complexity based on the following: History: 74-year-old female with impairment level findings, functional limitations, and past medical history as indicated above Examination: Demonstrable impairment in strength, balance, and mobility level with underlying impairments and functional limitations as documented above Presentation: evolving Decision Making: moderate Goals: N/A. Plan of Care/Treatment Plan: N/A. DISCHARGE RECOMMENDATIONS: Home with HEP and assistance from daughter TREATMENT CODE/TIME: 26176,39774/ [id number] Thank you for the opportunity to participate in the care of this patient. [facility]
== END 2024-08-26 15:40 | disposition home or self-care (01) ==
PROVIDERS: PCP Nurse Practitioner Family; Visit Provider Student in an Organized Health Care Education/Training Program
PROC: 0SR90JZ Replacement of Right Hip Joint with Synthetic Substitute, Open Approach (ICD-10-PCS; CPT 27130; principal; 2024-08-26 07:30)
DX: M16.0 Bilateral primary osteoarthritis of hip (principal); M70.61 Trochanteric bursitis, right hip; M96.661 Fracture of femur following insertion of orthopedic implant, joint prosthesis, or bone plate, right leg; M70.62 Trochanteric bursitis, left hip; I45.2 Bifascicular block; E05.00 Thyrotoxicosis with diffuse goiter without thyrotoxic crisis or storm; E78.5 Hyperlipidemia, unspecified
CPT/HCPCS: 20985; 27130; 97110; 97162; 97530; 73501; C1776; J0690; J1100; J1171; J2371; J2405; J2704; J3475

== ENCOUNTER 2024-09-07 11:08 | Outpatient (CLI) | payer MEDICARE, OTHER, SELFPAY ==
--- NOTE | 2024-09-07 10:45 | DI.RAD_ITS ---
Exam(s) XR HIP PELVIS ADULT BL EXAM: XR HIP PELVIS ADULT BL CLINICAL HISTORY: 1ST POST OP S/P BILAT THAs. TECHNIQUE: 2D digital imaging was performed. Three images were obtained. AP pelvis and bilateral la teral hips views were obtained. COMPARISON: CR XR HIP PELVIS ADULT BL from 07/04/2023 CR XR PELVIS AP from 02/27/2024 XA XR HIP RT IN OR from 08/26/2024 XA XR HIP LT IN OR from 08/26/2024 FINDINGS: BONES: There are stable post operative changes of a bilateral total hip arthroplasty present. There is a horizontal lucency is seen through the greater trochanter on the right which may represent a non displaced fracture. It is only appreciated on the lateral view. JOINTS: The orthopedic hardware is in good position. No evidence of hardware loosening. SOFT TISSUE: Normal. IMPRESSION: 1. Stable bilateral total hip arthroplasty. 2. Horizontal lucency through the greater trochanter on the right which may represent a nondisplaced fracture. DATA REPOSITORY: RADIATION DOSE DELIVERED:
== END 2024-09-07 11:09 | disposition home or self-care (01) ==
LOC: DIORS 11:10
PROVIDERS: PCP Nurse Practitioner Family; Referring Provider Nurse Practitioner Family; Visit Provider Student in an Organized Health Care Education/Training Program
DX: Z96.643 Presence of artificial hip joint, bilateral (principal); Z47.1 Aftercare following joint replacement surgery
CPT/HCPCS: 73521; 99024

== ENCOUNTER 2024-10-05 12:00 | Outpatient (CLI) | payer MEDICARE, OTHER, SELFPAY ==
--- NOTE | 2024-10-05 11:50 | DI.RAD_ITS ---
Exam(s) XR HIP RT AP LAT ONLY EXAM: XR HIP RT AP LAT ONLY INDICATION: S/P BILAT SUNNY. COMPARISON: CR XR HIP PELVIS ADULT BL from 09/07/2024 TECHNIQUE: 2D digital imaging was performed. Two views. FINDINGS: Stable alignment of right hip prosthesis. No abnormal surrounding bony lucencies. DATA REPOSITORY: RADIATION DOSE DELIVERED:
== END 2024-10-05 12:01 | disposition home or self-care (01) ==
LOC: DIORS 12:00
PROVIDERS: PCP Nurse Practitioner Family; Referring Provider Nurse Practitioner Family; Visit Provider Student in an Organized Health Care Education/Training Program
DX: Z47.1 Aftercare following joint replacement surgery (principal); Z96.643 Presence of artificial hip joint, bilateral
CPT/HCPCS: 99024; 73502

== ENCOUNTER 2024-11-09 01:57 | Outpatient (CLI) | payer MEDICARE, OTHER, SELFPAY ==
--- NOTE | 2024-11-09 | DI.CT_ITS ---
Exam(s) CT ABDOMEN PELVIS CTA EXAM: CT ABDOMEN PELVIS CTA CLINICAL HISTORY: Infrarenal AAA wo rupture, I71.43, eval for change. TECHNIQUE: Imaging Protocol: Axial computed tomography images with coronal and sagittal reformatted images were created and reviewed CONTRAST MATERIAL: Intravenous: Omnipaque 350 Contrast volume:100 ml Oral: None COMPARISON: CT CT ABDOMEN PELVIS WO/W from 02/27/2024 FINDINGS: AORTA: Caliber of the visualized lower thoracic thoracic aorta is enlarged, measuring 3 cm. At the l evel the celiac artery takeoff point the uppermost abdominal aorta is also prominent measuring 3.2 cm . The diameter of the aorta at the takeoff point of the superior mesenteric artery is within normal limits, measuring 2.2 cm and the diameter of the aorta at the level the renal artery takeoff points i s also within normal limits measuring 2 cm. There is, however, a infrarenal abdominal aortic aneurys m below this level which extends to the aortic bifurcation and exhibits a maximum diameter 4.5 cm wi th abundant mural thrombus but no evidence of rupture nor dissection nor obvious penetrating ulcer. There is aneurysmal dilatation of the proximal right common iliac artery which measures 1.8 cm, uncha nged.. More distally the right common iliac artery diameter is 1.3 cm. There is no significant sten osis at its junction with the right external iliac artery and the right external iliac artery is nice ly patent and without aneurysmal dilatation or significant stenosis. The ipsilateral right internal iliac artery is also patent without aneurysmal dilatation or thrombosis nor dissection. The diameter of the left common iliac artery is upper normal measuring 1.1 cm and there is no dilatat ion of this artery at its distal portion. There is some plaque at its junction with the left externa l iliac artery but without a tight stenosis at this level nor elsewhere in the left external iliac ar love. There is no significant aneurysm nor occlusion of the left internal iliac artery. ABDOMEN: There is no ascites. LIVER: Liver is hypodense implying steatosis. There no discrete focal hepatic lesions identified. N o dilated intrahepatic ducts. GALLBLADDER/BILIARY: No obvious gallbladder pathology. CBD is not dilated. PANCREAS: No evidence of pancreatic mass nor dilatation of the pancreatic duct. SPLEEN: Spleen is not enlarged. There are no intrasplenic lesions. ADRENALS: There are no significant adrenal masses. KIDNEYS: No cysts evident. No calculi nor hydronephrosis. No solid renal masses. ABDOMINAL AORTA: The abdominal aorta is not enlarged. LYMPH NODES: There is no retroperitoneal nor para-aortic adenopathy. There is no adenopathy around t he aortic bifurcation nor along the iliac chains and there is no inguinal adenopathy. No obvious mes enteric masses. ABDOMINAL WALL: No evidence of significant anterior abdominal wall hernia. GI: There is no evidence of bowel obstruction, free air, nor abscess.There are no ischemic appearing bowel loops. PELVIS: LYMPH NODES: There is no intrapelvic nor inguinal adenopathy. GI: No evidence of appendicitis.No evidence of sigmoid diverticulitis. URINARY BLADDER: Obscured by beam hardening artifact from bilateral hip prostheses. REPRODUCTIVE: Obscured by beam hardening artifact from bilateral hip prostheses. OSSEOUS: There are bilateral hip prostheses arthroplasties evident. No pelvic fractures. No osseous lesions. There is mild degenerative anterolisthesis of L4 upon L5 related to facet arthropathy and there is also mild disc space narrowing at this level. IMPRESSION: 1. Atherosclerotic aorta and common iliac arteries with aortic aneurysm measurements as above, the in frarenal abdominal aortic aneurysm exhibiting maximum diameter of 4.5 cm, slightly larger than maximu m prior measurement of [address] scan of February 2024. 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 There is no focal aneurysmal dilatation of the left commo n iliac artery. 2. No evidence of dissection in the aorta and aortoiliac segments 3. There are bilateral hip prostheses which obscure visualization the urinary bladder and reproductiv e organs. RADIATION DOSE DELIVERED: 357.2mGy.cm Total DLP DATA REPOSITORY: All CT scans at this facility are submitted to the National Radiology Data Registry (NRDR) Dose Index Registry (DIR) with the [employer] (A[employer]). RADIATION OPTIMIZATION: All CT scans at this facility use at least one of these dose optimization te chniques: automated exposure control; mA and/or kV adjustment per patient size (includes targeted exa ms where dose is matched to clinical indication); or iterative reconstruction.
[2024-11-09 13:43] LABS: CREATININE 0.7 mg/dL (0.55-1.02); Estimated GFR 89.58 (mL/min/1.73m2)
[2024-11-09] MEDS: Normal Saline - Diluent 50 ML VIAL IJ (13:55)
[2024-11-09] MEDS: Omnipaque 350 MG/ML 100 ML BTL IJ (13:55)
== END 2024-11-09 02:17 ==
LOC: DI 01:57
PROVIDERS: PCP Nurse Practitioner Family; Visit Provider Surgery Vascular Surgery
DX: I71.43 Infrarenal abdominal aortic aneurysm, without rupture (principal)
CPT/HCPCS: 74174; 82565; J3490

== ENCOUNTER 2024-11-19 11:19 | Outpatient (CLI) | payer MEDICARE, OTHER, SELFPAY ==
--- NOTE | 2024-11-19 10:53 | DI.RAD_ITS ---
Exam(s) XR HIP RT AP LAT ONLY EXAM: XR HIP RT AP LAT ONLY CLINICAL HISTORY: S/P SUNNY. TECHNIQUE: 2D digital imaging was performed. Two images were obtained. AP and lateral views were ob tained. COMPARISON: CR XR HIP RT AP LAT ONLY from 10/05/2024 FINDINGS: BONES: There are stable post operative changes of a right total hip arthroplasty present. No fractur e or dislocation. JOINTS: The orthopedic hardware is in good position. No evidence of hardware loosening. SOFT TISSUE: Normal. IMPRESSION: Stable right total hip arthroplasty. DATA REPOSITORY: RADIATION DOSE DELIVERED:
== END 2024-11-19 11:20 | disposition home or self-care (01) ==
LOC: DIORS 11:19
PROVIDERS: PCP Nurse Practitioner Family; Referring Provider Nurse Practitioner Family; Visit Provider Physician Assistant
DX: Z47.1 Aftercare following joint replacement surgery (principal); Z96.643 Presence of artificial hip joint, bilateral
CPT/HCPCS: 99024; 73502

== ENCOUNTER 2024-11-19 22:19 | Outpatient (REF) | payer MEDICARE, OTHER, SELFPAY ==
[2024-11-19 22:03] LABS: Abs Immature Grans 0.02 10^3/uL (0.0-0.06); Absolute Basophil Count 0.04 10^3/uL (0.0-0.2); Absolute Eosinophil Count 0.25 10^3/uL (0.0-0.7); Absolute Lymphocyte Count 2.95 10^3/uL (1.2-3.4); Absolute Monocyte Count 0.59 10^3/uL (0.1-0.8); Absolute Neutrophil Count 3.01 10^3/uL (1.2-6.7); Basophils % 0.6 %; Eosinophils % 3.6 %; HCT 42.5 % (36.0-46.0); HGB 13.8 g/dL (11.2-15.7); Immature Grans % 0.3 %; MCH 28.8 pg (27.0-33.0); MCHC 32.5 % (32.0-36.0); MCV 89 fL (80-95); MPV 9.1 fL (8.0-11.0); Monocytes % 8.6 %; Neutrophils % 43.9 %; Platelet Count 263 10^3/uL (130-400); RBC 4.79 10^6/uL (3.93-5.22); RDW 12.9 % (11.7-14.6); RDW-SD 42.5 fL; WBC 6.86 10^3/uL (4.4-10.8)
[2024-11-19 22:20] LABS: ALT 25 U/L (14-59); AST 22 U/L (15-37); Albumin 3.9 g/dL (3.4-5.0); Alkaline Phosphatase 138 U/L (46-116); Anion Gap 8.1 mmol/L (3-11); BUN 16 mg/dL (7-18); Bilirubin, Total 0.3 mg/dL (0.2-1.0); CO2 25.9 mmol/L (21.0-32.0); CREATININE 0.6 mg/dL (0.55-1.02); Calcium 9.6 mg/dL (8.5-10.1); Chloride 106 mmol/L (98-107); Estimated GFR 92.97 (mL/min/1.73m2); Glucose 116 mg/dL (74-106); Potassium 4.4 mmol/L (3.5-5.1); Sodium 140 mmol/L (136-145); Total Protein 7.2 g/dL (6.4-8.2)
== END 2024-11-19 22:20 | disposition home or self-care (01) ==
LOC: NCHCN 22:19
PROVIDERS: PCP Nurse Practitioner Family; Visit Provider Family Medicine
DX: R07.9 Chest pain, unspecified (principal)
CPT/HCPCS: 80053; 85025

== ENCOUNTER 2024-11-30 01:43 | Outpatient (CLI) | payer MEDICARE, OTHER, SELFPAY ==
--- NOTE | 2024-11-30 | DI.NM_ITS ---
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 Reason for pharmacologic stress test: physical limitation, LAFB. Nuclear Acquisition: Rest Tc-99m/Stress Tc-99m 1 day Rest Isotope: Tc-99m Sestamibi. Dose: 10.0 Date: 11/30/2024 Injection Time: 0925 Stress Isotope: Tc-99m Sestamibi. Dose: 30.0 Date: 11/30/2024 Injection Time: 1112 HR Resting HR Supine: 64 bpm Max Heart Rate (APMHR): 144 bpm Resting HR Standin bpm Target HR (85% APMHR): 122 bpm Max HR Achieved: 106 bpm % of APMHR: 74 Recovery HR: 74 bpm BP Resting BP Supine: 130/90 mmHg Resting BP Standin/90 mmHg Max BP: 150/90 mmHg Recovery BP: 150/90 mmHg ECG Resting ECG: Sinus Rhythm, RBBB, LAFB Ectopy: Rare PAC Stress ECG: Sinus Tachycardia, RBBB, LAFB ST Change: Nondiagnostic low heart rate Arrhythmia: None Recovery ECG: Sinus Rhythm, RBBB, LAFB Recovery ST Change: Nondiagnostic low heart rate Clinical Stress Symptoms: Headache Angina Score: None Rate Pressure Product: [id number] Stress ECG Conclusion 1. Resting electrocardiogram showed right bundle branch block and left anterior fascicular block 2. Patient underwent testing using pharmacologic stress with regadenoson 3. Peak heart rate was 78% of maximal predicted for age 4. The electrocardiographic portion of this test was nondiagnostic due to inadequate heart rate 5. See MPI report Stress Test Summary STAGE HR BP SpO2 Symptoms NOTES Supine 64 130/90 96% Standing 70 150/90 1 min post Lexiscan injection 105 110/80 96% 3 min post Lexiscan injection 76 130/80 96% 6 min post Lexiscan injection 74 140/80 65% MPI Conclusion Myocardial perfusion is normal. There is no ischemia or evidence of prior infarction Ejection fraction is 55% with normal wall motion
[2024-11-30] MEDS: Regadenoson 0.4 MG/5 ML SYR IVP (13:40)
== END 2024-11-30 02:03 ==
LOC: DI 01:43
PROVIDERS: PCP Nurse Practitioner Family; Visit Provider Internal Medicine Cardiovascular Disease
DX: R07.9 Chest pain, unspecified (principal)
CPT/HCPCS: 78452; 93016; 93018; 93017; J2785

== ENCOUNTER 2025-02-10 12:16 | Emergency (ER) | payer MEDICARE, OTHER, SELFPAY ==
[2025-02-10 12:20] VITALS: BP 131/81; PULSE 93; RESP 18; TEMP 36.6; O2SAT 95
--- NOTE | 2025-02-10 13:13 | W.ED.GENAD ---
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 Primary Care Provider: Soni Alva ED Provider: Karyna Wilson Home Meds and New Rx's Prescriptions: New doxycycline hyclate 100 mg capsule 100 mg PO BID 10 Days Qty: 20 0RF Rx Instructions: Take 1 capsule by mouth twice daily for the next 10 days lidocaine 5 % adhesive patch,medicated 1 patch topical DAILY Qty: 15 0RF Rx Instructions: leave on most painful area for up to 12 hrs doxycycline hyclate 100 mg tablet 100 mg PO BID 10 Days Qty: 20 0RF Rx Instructions: Take 1 tablet by mouth twice daily for the next 10 days No Action levothyroxine [Synthroid] 100 MCG tablet 100 mcg PO DAILY Qty: 1 celecoxib 200 mg capsule 200 mg PO BID Qty: 60 3RF gabapentin 300 mg capsule 300 mg PO BID Patient Comments: 1am, 1noon, 2HS per patient Rx Instructions: 1 tab in AM, 2 tabs QHS estradiol 0.01 % (0.1 mg/gram) cream VAGINAL Patient Comments: APPLY A PEA SIZED AMOUNT CHANCE-URETHRALLY TWICE DAILY FOR 2 WEEK; AND THEN TWICE PER WEEK acetaminophen 500 mg tablet 1,000 mg PO TID Qty: 90 3RF Discharge Instructions Instructions: Osteoarthritis, Calcific Tendinopathy of the Shoulder (DC), Lyme Disease Test Additional Instructions: At this time the x-ray showed calcific tendinitis of the right shoulder which can be very painful. You are given a lidocaine patch here in the emergency department and a prescription for lidocaine patches sent to the pharmacy on file. You may also get the lidocaine patches [id number] if your insurance does not pay for them. Leave on the most painful area for 12 hours and take it off for 12 hours. A tick and Lyme panel was added onto the labs along with liver function test which also can indicate a possible Lyme related disease. However, follow-up with your primary care provider for further evaluation and treatment. Take the antibiotic doxycycline with yogurt or a probiotic twice daily as prescribed. Follow up with primary care provider in 3-5 days. Return to ED sooner if any worsening redness, swelling which extends up your arm after 2 to 3 days of the antibiotic, red streaks, fever or concerns. You may do light stretching to your shoulder and range of motion very gently. Thank you for allowing us to care for you today. Referrals: Soni Alva [Primary Care Provider, Medicine] - 5 days Discharge Data Discharge Date/Time-TO BE ENTERED AT DEPARTURE: 02/10/25 15:21 HPI General Mode of arrival: ambulatory. Date/Time Provider Initiated Documentation: 02/10/25 12:29. Limitations to Documentation: no limitations. Information obtained by: patient, family, RN notes reviewed and old records reviewed. HPI Narrative: 74-year-old female presents to the ER with a chief complaint of right shoulder pain, right wrist pain which began Saturday night after some extended car and shuffling while playing cribbage and some gardening. She she reports that she was seen by a massage therapist and that her daughter did some traction to her right upper extremity with exacerbated her symptoms. On exam she has decreased range of motion with abduction to her right shoulder, increased pinpoint tenderness over her AC joint, no obvious deformity to her shoulder, she also has swollen red erythemic right wrist with decreased range of motion without tenderness. Does have a history of AAA with repair in 2023, Graves' disease, surgical history includes hysterectomy appendectomy bilateral total hip replacement in August. Related Data Home Medications ?Medication ?Instructions ?Recorded ?Confirmed levothyroxine 100 mcg tablet 100 mcg PO DAILY #1 tab-cap 12/25/13 02/10/25 (Synthroid) gabapentin 300 mg capsule 300 mg PO BID 09/02/23 02/10/25 acetaminophen 500 mg tablet 1,000 mg (2 x 500 mg) PO TID #90 08/26/24 02/10/25 tabs estradiol 0.01% (0.1 mg/gram) vaginal 08/26/24 11/19/24 vaginal cream celecoxib 200 mg capsule 200 mg PO BID #60 caps 10/21/24 02/10/25 doxycycline hyclate 100 mg capsule 100 mg PO BID Tick Bite 10 days 02/10/25 #20 caps doxycycline hyclate 100 mg tablet 100 mg PO BID Tick bite 10 days 02/10/25 #20 tabs lidocaine 5 % topical patch 1 patch topical DAILY #15 ea 02/10/25 Previous Rx's ?Medication ?Instructions ?Recorded acetaminophen 500 mg tablet 1,000 mg (2 x 500 mg) PO TID #90 08/26/24 tabs celecoxib 200 mg capsule 200 mg PO BID #60 caps 10/21/24 doxycycline hyclate 100 mg capsule 100 mg PO BID Tick Bite 10 days 02/10/25 #20 caps doxycycline hyclate 100 mg tablet 100 mg PO BID Tick bite 10 days 02/10/25 #20 tabs lidocaine 5 % topical patch 1 patch topical DAILY #15 ea 02/10/25 Allergies Allergy/AdvReac Type Severity Reaction Status Date / Time ciprofloxacin Allergy Intermediate Headache Verified 02/10/25 12:23 atorvastatin Allergy Other (See Verified 02/10/25 12:23 Comment) seasonal Allergy Other (See Uncoded 02/10/25 12:23 Comment) General Stated Complaint: Orthopedic TIFFANY: 3 Review of Systems All systems reviewed & are unremarkable except as noted in HPI and below Constitutional Constitutional: Reports as per HPI, Denies body ache(s), Reports chills, Denies fever(s) and Denies malaise Musculoskeletal Musculoskeletal: Reports as per HPI, Denies myalgias, Reports arthralgias, Reports joint swelling, Reports limited range of motion and Reports stiffness Exam Extrem General: normal to inspection Right upper extremity: edema, shoulder/upper arm Details: normal to inspection and tenderness Location: of the A-C joint and wrist Details: abnormal to inspection Details: erythema (Skin erythema and swelling), tenderness Location: of the dorsal wrist, swelling Location: of the dorsal wrist, warmth Location: of the dorsal wrist, normal vascular exam and radial pulse present; no crepitus, no foreign body, no penetrating wound and no deformity Elbow/forearm/wrist images:  1. Erythema swelling tenderness. Course Vital Signs Vital signs: Vital Signs Temperature 36.6 C 02/10/25 12:20 Pulse 93 H 02/10/25 12:20 Respiratory Rate 18 02/10/25 12:20 Blood Pressure 131/81 02/10/25 12:20 Pulse Oximetry 95 02/10/25 12:20 Temperature 36.6 C 02/10/25 12:20 Temperature Source Oral 02/10/25 12:20 Pulse 93 H 02/10/25 12:20 Respiratory Rate 18 02/10/25 12:20 Blood Pressure 131/81 02/10/25 12:20 Blood Pressure Position Sitting 02/10/25 12:20 Pulse Oximetry 95 02/10/25 12:20 Oxygen Delivery Method Room Air 02/10/25 12:20 Oxygen Flow Rate 0 02/10/25 12:20 Medical Decision Making 74-year-old female presents to the ER with chief complaint of right shoulder pain and right wrist pain, right shoulder pain began and then the right wrist began to be swollen and erythemic. Denies any fever does report chills. On exam she has decreased range of motion with abduction to her right shoulder, increased pinpoint tenderness over her AC joint, no obvious deformity to her shoulder, she also has swollen red erythemic right wrist with decreased range of motion without tenderness. Does have a history of AAA with repair in 2023, Graves' disease, surgical history includes hysterectomy appendectomy bilateral total hip replacement in August. Upon patient reevaluation and discussion regarding lab work and x-ray results she did tell me that she had a couple of ticks pulled off of her last week and is wondering if this could be Lyme disease or tickborne related arthritis. Will add on a tick and Lyme panel. No evidence of anaplasmosis with her labs at this time. Added on a AST and ALT as a BMP was drawn earlier. Will place a Joseph wrap on the wrist and give a sling and instruct on ice and gentle stretching discussed NSAIDs. Will encourage strict and close follow-up with PCP. Discussed strict return instructions to return for any worsening redness swelling worsening pain not relieved by Tylenol or ibuprofen, fever or concerns. Will give doxycycline 100 mg twice daily for possible Lyme exposure and possible gouty arthritis versus cellulitis or septic arthritis. Will also place referral for [facility] for further eval, Re-check, and treatment. This text was generated using [employer] dictation system, please disregard any oddities of phrase or misspellings. Medical Records Medical records reviewed: Yes I reviewed the patient's medical records. Imaging Data Radiologic Study: Imaging: X-Ray Radiologist's impression: Exam(s) XR WRIST RT COMPLETE EXAM: XR WRIST RT COMPLETE CLINICAL HISTORY: Pain, redness swelling. TECHNIQUE: 2D digital imaging was performed. Three views. COMPARISON: CR XR WRIST RT COMPLETE from 11/24/2021 FINDINGS: BONES: No acute fracture is present. No bony destructive lesion is seen. JOINTS: The carpal bones are normally aligned. Mild degenerative changes of the 1st metacarpal phalangeal joint and scaphoid trapezium trapezoid joints. SOFT TISSUE: Swelling around wrist. IMPRESSION: Soft tissue swelling. No evidence of fracture or foreign body. Radiologic Study #2: Imaging: X-Ray Radiologist's impression: R SHOULDER RT COMPLETE 2+V EXAM: XR SHOULDER RT COMPLETE 2+V CLINICAL HISTORY: Right shoulder pain, Decreased ROM. TECHNIQUE: 2D digital imaging was performed. Five views. COMPARISON: CR,XR XR PORTABLE CHEST AP from 11/22/2022 FINDINGS: BONES: No acute fracture is present. No bony destructive lesion is seen. JOINTS: No dislocation present. [id number] narrowing of the glenohumeral joint. Mild periarticular spurring. Mild spurring at the AC joint. SOFT TISSUE: Calcification adjacent to humeral head consistent with calcific tendinitis. IMPRESSION: Calcific tendinitis. [id number] degenerative changes. Lab Data Lab results reviewed: Yes I reviewed the patient's lab results. Labs: Laboratory Tests Range/Units 02/10/25 14:00 WBC (4.4-10.8) 10^3/uL 10.61 RBC (3.93-5.22) 10^6/uL 4.75 Hgb (11.2-15.7) g/dL 13.6 Hct (36.0-46.0) % 41.6 MCV (80-95) fL 88 MCH (27.0-33.0) pg 28.6 MCHC (32.0-36.0) % 32.7 RDW (11.7-14.6) % 12.9 Plt Count (130-400) 10^3/uL 284 MPV (8.0-11.0) fL 8.3 Immature Gran % % 0.4 Neutrophils % % 65.8 Lymphocytes % % 22.8 Monocytes % % 10.2 Eosinophils % % 0.5 Basophils % % 0.3 Nucleated RBC % (0.0-0.3) % 0.0 Absolute Neutrophils (1.2-6.7) 10^3/uL 6.99 H Absolute Lymphocytes (1.2-3.4) 10^3/uL 2.42 Absolute Monocytes (0.1-0.8) 10^3/uL 1.08 H Absolute Eosinophils (0.0-0.7) 10^3/uL 0.05 Absolute Basophils (0.0-0.2) 10^3/uL 0.03 Sodium (136-145) mmol/L 140 Potassium (3.5-5.1) mmol/L 3.8 Chloride (98-107) mmol/L 101 Carbon Dioxide (21.0-32.0) mmol/L 30.9 Anion Gap (3-11) mmol/L 8.1 BUN (7-18) mg/dL 11 Creatinine (0.55-1.02) mg/dL 0.5 L Est GFR (CKD-EPI 2020) (mL/min/1.73m2) 97.14 Glucose (74-106) mg/dL 101 Uric Acid (2.6-6.0) mg/dL 3.4 Calcium (8.5-10.1) mg/dL 10.0 PFSH All Active Problems (Updated 02/10/25 @ 15:05 by Karyna Wilson NP) 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 Last Vascular appt 08/24/23 Hx of retinal hemorrhage (L) currently [place] [facility] [place] pt[place]da Britton aware Herniated disc s/p surgery L5-S1 Low back pain potentially associated with radiculopathy Thyroid cyst Surgical History History of bilateral total hip arthroplasty (08/26/24) Stable intraoperative fracture of right hip greater trochanter History of cataract surgery Hx of appendectomy Hx of hysterectomy Social History Smoking/Tobacco Use Status: Former Tobacco Use Quit Date: 07/22/07 Smoking risk assessment performed?: Yes Alcohol Intake: current Alcohol Intake frequency: a few times a week Alcohol type: wine Drug use: Never Substance use type: does not use Housing: house Do you feel safe at home: Yes Do you feel safe in your relationship?: Yes Additional Social history: lives alone
--- NOTE | 2025-02-10 13:55 | DI.RAD_ITS ---
Exam(s) XR SHOULDER RT COMPLETE 2+V EXAM: XR SHOULDER RT COMPLETE 2+V CLINICAL HISTORY: Right shoulder pain, Decreased ROM. TECHNIQUE: 2D digital imaging was performed. Five views. COMPARISON: CR,XR XR PORTABLE CHEST AP from 11/22/2022 FINDINGS: BONES: No acute fracture is present. No bony destructive lesion is seen. JOINTS: No dislocation present. [id number] narrowing of the glenohumeral joint. Mild periarticular spurring. Mild spurring at the AC joint. SOFT TISSUE: Calcification adjacent to humeral head consistent with calcific tendinitis. IMPRESSION: Calcific tendinitis. [id number] degenerative changes. DATA REPOSITORY: RADIATION DOSE DELIVERED:
--- NOTE | 2025-02-10 13:55 | DI.RAD_ITS ---
Exam(s) XR WRIST RT COMPLETE EXAM: XR WRIST RT COMPLETE CLINICAL HISTORY: Pain, redness swelling. TECHNIQUE: 2D digital imaging was performed. Three views. COMPARISON: CR XR WRIST RT COMPLETE from 11/24/2021 FINDINGS: BONES: No acute fracture is present. No bony destructive lesion is seen. JOINTS: The carpal bones are normally aligned. Mild degenerative changes of the 1st metacarpal phalangeal joint and scaphoid trapezium trapezoid joints. SOFT TISSUE: Swelling around wrist. IMPRESSION: Soft tissue swelling. No evidence of fracture or foreign body. DATA REPOSITORY: RADIATION DOSE DELIVERED:
[2025-02-10 14:08] LABS: Abs Immature Grans 0.04 10^3/uL (0.0-0.06); HCT 41.6 % (36.0-46.0); HGB 13.6 g/dL (11.2-15.7); Immature Grans % 0.4 %; MCH 28.6 pg (27.0-33.0); MCHC 32.7 % (32.0-36.0); MCV 88 fL (80-95); MPV 8.3 fL (8.0-11.0); Platelet Count 284 10^3/uL (130-400); RBC 4.75 10^6/uL (3.93-5.22); RDW 12.9 % (11.7-14.6); RDW-SD 41.3 fL; WBC 10.61 10^3/uL (4.4-10.8)
[2025-02-10 14:22] LABS: Anion Gap 8.1 mmol/L (3-11); BUN 11 mg/dL (7-18); CO2 30.9 mmol/L (21.0-32.0); Calcium 10.0 mg/dL (8.5-10.1); Chloride 101 mmol/L (98-107); Estimated GFR 97.14 (mL/min/1.73m2); Glucose 101 mg/dL (74-106); Potassium 3.8 mmol/L (3.5-5.1); Sodium 140 mmol/L (136-145); Uric Acid 3.4 mg/dL (2.6-6.0)
[2025-02-10] MEDS: Acetaminophen 325 MG TAB 650 MG PO (14:55)
[2025-02-10] MEDS: Lidocaine 5% Patch 1 PATCH TP (14:55)
[2025-02-10 14:59] LABS: Glucose Negative (Negative)
[2025-02-10 15:04] LABS: Lab Add On Test DONE
[2025-02-10] MEDS: Doxycycline Hyclate 100 MG CAP PO (15:13)
[2025-02-10 15:20] LABS: WBC Negative HPF (0-5)
[2025-02-10 15:21] LABS: C & S Indicated? No
[2025-02-10 15:34] LABS: ALT 21 U/L (14-59); AST 16 U/L (15-37)
[2025-02-11 10:52] LABS: Lyme Ab w Rflx to Lyme Confirm Negative (Negative)
[2025-02-15 16:58] LABS: B. miyamotoi PCR Negative (Negative); Babesia divergens/MO-1 Negative (Negative); Ehrlichia muris eauclairensis Negative (Negative)
== END 2025-02-10 15:21 | disposition home or self-care (01) ==
PROVIDERS: Emergency Provider Registered Nurse Emergency; PCP Nurse Practitioner Family
DX: M75.32 Calcific tendinitis of left shoulder (principal); M10.9 Gout, unspecified; M10.031 Idiopathic gout, right wrist
CPT/HCPCS: 99284 ×2; 80048; 87798; 73030; 73110; 81003; 81015; 84450; 84460; 84550; 85025; 86618

== ENCOUNTER → 2025-03-02 12:49 | Outpatient (BNVA) | payer MEDICARE, OTHER, SELFPAY | PROVIDERS: PCP Nurse Practitioner Family; Referring Provider Nurse Practitioner Family; Visit Provider Student in an Organized Health Care Education/Training Program | DX: M75.31 Calcific tendinitis of right shoulder (principal); M18.11 Unilateral primary osteoarthritis of first carpometacarpal joint, right hand | CPT/HCPCS: 99213 ==